=== PATIENT | female | born 1940 | race Caucasian/White ===

== ENCOUNTER 2017-04-15 10:13 | Inpatient (IN) | payer MEDICARE, OTHER ==
[~2017-04-15] VITALS: Ht 167.6 cm; Wt 98.4 kg
[~2017-04-15 10:13] MED LIST: ACET-1574 PO; ALPR0.254 PO; AMLO5TAB2 PO; BENZ1LOZ48 MM; BISA10SU2 RC; BUSP10TA PO; BUSP5TAB PO; CALC500T PO; CARV12.52 PO; CEFT400V IV; CITA20TA9 PO; CLOP75TA PO; CYCL100S4 PO; CYCL10TA2 PO; DIPH25CA58 PO; FENT1PAT13 TD; FERR325T72 PO; FURO40TA4 PO; FURO80TA3 PO; HUMALOG SQ; HYDR-2758 PO; HYDR-2868 PO; INSU100C4 SQ; INSU100I17 SQ; INSU100I27 SQ; INSU100V13 SQ; INSU100V8 SQ; LETR2.5T18 PO; LEVO25TA4 PO; LORA-434 PO; LORAZEPAM PO; MAGN400O7 PO; MELA3TAB43 PO; MIRT15TA PO; MULT1CAP15 PO; MYLANTA PO; NITR0.4T SL; NITR1PAT11 TD; NYST100054 PO; NYST15PO9 TP; OXYC-323 PO; PANT20TA3 PO; PROC25SU21 RC; PROP10DR3 OP; PSYL1PAC7 PO; SENN1TAB21 PO; VENL75CA PO
[2017-04-15 11:08] LABS: BASO # 0.1 x10^3/uL (0.0-0.2); BASO % 1 % (0-3); EOS % 3 % (0-3); HEMATOCRIT 40.8 % (36.0-47.0); HEMOGLOBIN 13.2 g/dL (12.0-15.5); LYMPH # 1.1 x10^3/uL (1.0-4.8); LYMPH % 17 % (24-48); MEAN CORPUSCULAR HEMOGLOBIN 29 pg (25-35); MEAN CORPUSCULAR HGB CONC 32 g/dL (31-37); MEAN CORPUSCULAR VOLUME 91 fL (79-100); MONO % 8 % (0-9); NEUT % 71 % (31-73); PLATELET COUNT 143 x10^3/uL (140-400); RED BLOOD COUNT 4.48 x10^6/uL (3.50-5.40); RED CELL DISTRIBUTION WIDTH 14.3 % (11.5-14.5)
[2017-04-15 11:16] LABS: CALCIUM 8.8 mg/dL (8.5-10.1); CREATININE 1.1 mg/dL (0.6-1.0); POTASSIUM 5.2 mmol/L (3.5-5.1)
[2017-04-15 11:18] LABS: INR 1.1 (0.8-1.1); PROTHROMBIN TIME PATIENT 13.6 SEC (11.7-14.0)
[2017-04-15 11:22] LABS: ALBUMIN 3.2 g/dL (3.4-5.0); ALBUMIN/GLOBULIN RATIO 0.8 (1.0-1.7); MAGNESIUM 1.6 mg/dL (1.8-2.4); TOTAL BILIRUBIN 0.2 mg/dL (0.2-1.0); TOTAL PROTEIN 7.2 g/dL (6.4-8.2)
--- NOTE | 2017-04-15 11:28 | RAD ---
Portable chest, 04/15/2017: History: Weakness and right-sided numbness Comparison is made to a study from 04/21/2016. The heart size and pulmonary vascularity are normal. There is calcific plaquing of the aorta. There is a mild left basilar opacity similar to that seen on the previous study. The appearance suggests a small amount of ongoing or recurrent pleural fluid with underlying atelectasis. The right lung is clear. IMPRESSION: Mild left basilar opacity suggesting a small amount of pleural fluid and underlying atelectasis.
[2017-04-15 11:59] LABS: BILIRUBIN,URINE NEGATIVE (NEG); GLUCOSE,URINE NEGATIVE (NEG); NITRITE,URINE NEGATIVE (NEG); PROTEIN,URINE 100 mg/dL (NEG-TRACE); UROBILINOGEN,URINE 0.2 mg/dL (0.2 mg/dL)
[2017-04-15 12:05] LABS: BACTERIA,URINE MANY /HPF (0-FEW); WBC,URINE TNTC /HPF (0-4)
[2017-04-15 12:06] LABS: RBC,URINE FOBS /HPF (0-2)
--- NOTE | 2017-04-15 12:10 | RAD ---
CT of the head without contrast, 04/15/2017: History: Right-sided weakness, previous stroke Comparison is made to a study from 07/11/2012. There is moderate cerebral atrophy. There are moderate patchy bilateral deep white matter lucencies compatible with chronic ischemic change. Small basal ganglia region lucencies are also compatible with old infarcts. The ventricles are mildly enlarged on a compensatory basis. There is no shift of the midline structures. There is no evidence of acute intracranial hemorrhage or mass effect. IMPRESSION: 1. Cerebral atrophy. 2. Old small bilateral basal ganglia region infarcts. 3. Moderate patchy bilateral deep white matter lucencies compatible with chronic ischemic change. PQRS Compliance Statement: One or more of the following individualized dose reduction techniques were utilized for this examination: 1. Automated exposure control 2. Adjustment of the mA and/or kV according to patient size 3. Use of iterative reconstruction technique
--- NOTE | 2017-04-15 12:31 | PHYS DOC ---
Past Medical History Past Medical History: Anemia, Anxiety, CHF, COPD, Depression, Diabetes-Type II , GERD, High Cholesterol, Hypertension, Renal Disease, UTI, Other Additional Past Medical Histor: Rt ankle fx and osteomyelitis, pressure ulcer buttock, PVD Past Surgical History: Other Additional Past Surgical Histo: Rt ankle fx/repair Alcohol Use: None Drug Use: None Adult General Chief Complaint Chief Complaint: WEAKNESS/GENERALIZED HPI HPI Patient is a 77 year old female with a history of previous stroke with residual left-sided weakness presents today with right-sided weakness that started 2 days ago. Patient did not want to come to the hospital then but weakness had not resolved so she decided to come in today. Patient denies any pain or any other associated symptoms. Review of Systems Review of Systems Constitutional: Denies fever or chills [] Eyes: Denies change in visual acuity, HENT: Denies pain Respiratory: Denies cough or shortness of breath [] Cardiovascular: No chest pain GI: Denies abdominal pain, nausea, vomiting, Musculoskeletal: Denies back pain or joint pain [] Integument: Denies rash or skin lesions [] Neurologic: New right-sided weakness All other systems were reviewed and found to be within normal limits, except as documented in this note. Allergies Allergies Allergies Coded Allergies Type Severity Reaction Last Updated Verified Latex, Natural Rubber Allergy Severe Swelling 01/15/16 Yes morphine Allergy Severe Shortness of Air 01/15/16 Yes I S O L A T I O N *CONTACT* Allergy Unknown 01/18/16 Yes Physical Exam Physical Exam Constitutional: Well developed, well nourished, no acute distress, non-toxic appearance. [] HENT: Normocephalic, atraumatic, bilateral external ears normal, oropharynx dry , no oral exudates, nose normal. [] Eyes: EOMI, conjunctiva normal, no discharge. [] Neck: Normal range of motion, no tenderness, supple, no stridor. Trachea midline , no meningeal signs. Cardiovascular: Irregular irregular pulse, equal pulses, normal perfusion Lungs & Thorax: The case breathe sounds bilateral bases, no tachypnea Abdomen: Bowel sounds normal, soft, no tenderness, no masses, no pulsatile masses. [] Skin: Warm, dry, no erythema, no rash. [] Back: No tenderness, no CVA tenderness. [] Extremities: No tenderness, no cyanosis, no clubbing, ROM intact, no edema. Below knee amputation right Neurologic: Alert and oriented X 3, 4 out of 5 strength right upper extremity 4 out of 5 strength right lower extremity Psychologic: Affect normal, judgement normal, mood normal. [] Current Patient Data Vital Signs Vital Signs Date Time Temp Pulse Resp B/P (MAP) Pulse Ox O2 Delivery O2 Flow Rate FiO2 04/15/17 11:54 76 14 96 04/15/17 10:15 97.6 175/91 (119) Room Air 97.6 Lab Values Laboratory Tests Test 04/15/17 10:55 04/15/17 11:55 White Blood Count 6.0 x10^3/uL (4.0-11.0) Red Blood Count 4.48 x10^6/uL (3.50-5.40) Hemoglobin 13.2 g/dL (12.0-15.5) Hematocrit 40.8 % (36.0-47.0) Mean Corpuscular Volume 91 fL (79-100) Mean Corpuscular Hemoglobin 29 pg (25-35) Mean Corpuscular Hemoglobin Concent 32 g/dL (31-37) Red Cell Distribution Width 14.3 % (11.5-14.5) Platelet Count 143 x10^3/uL (140-400) Neutrophils (%) (Auto) 71 % (31-73) Lymphocytes (%) (Auto) 17 % (24-48) L Monocytes (%) (Auto) 8 % (0-9) Eosinophils (%) (Auto) 3 % (0-3) Basophils (%) (Auto) 1 % (0-3) Neutrophils # (Auto) 4.3 x10^3uL (1.8-7.7) Lymphocytes # (Auto) 1.1 x10^3/uL (1.0-4.8) Monocytes # (Auto) 0.5 x10^3/uL (0.0-1.1) Eosinophils # (Auto) 0.2 x10^3/uL (0.0-0.7) Basophils # (Auto) 0.1 x10^3/uL (0.0-0.2) Prothrombin Time 13.6 SEC (11.7-14.0) Prothrombin Time INR 1.1 (0.8-1.1) Sodium Level 144 mmol/L (136-145) Potassium Level 5.2 mmol/L (3.5-5.1) H Chloride Level 104 mmol/L (98-107) Carbon Dioxide Level 32 mmol/L (21-32) Anion Gap 8 (6-14) Blood Urea Nitrogen 31 mg/dL (7-20) H Creatinine 1.1 mg/dL (0.6-1.0) H Estimated GFR (Cockcroft-Gault) 48.0 BUN/Creatinine Ratio 28 (6-20) H Glucose Level 280 mg/dL (70-99) H Calcium Level 8.8 mg/dL (8.5-10.1) Magnesium Level 1.6 mg/dL (1.8-2.4) L Total Bilirubin 0.2 mg/dL (0.2-1.0) Aspartate Amino Transferase (AST) 13 U/L (15-37) L Alanine Aminotransferase (ALT) 18 U/L (14-59) Alkaline Phosphatase 84 U/L (46-116) Troponin I Quantitative < 0.017 ng/mL (0.000-0.055) NM-Koj-W-Type Natriuretic Peptide 619 pg/mL (0-449) H Total Protein 7.2 g/dL (6.4-8.2) Albumin 3.2 g/dL (3.4-5.0) L Albumin/Globulin Ratio 0.8 (1.0-1.7) L Urine Collection Type U cath Urine Color Yellow Urine Clarity Cloudy Urine pH 6.0 Urine Specific [place] 1.015 Urine Protein 100 mg/dL (NEG-TRACE) Urine Glucose (UA) Negative mg/dL (NEG) Urine Ketones (Stick) Negative mg/dL (NEG) Urine Blood Small (NEG) Urine Nitrite Negative (NEG) Urine Bilirubin Negative (NEG) Urine Urobilinogen Dipstick 0.2 mg/dL (0.2 mg/dL) Urine Leukocyte Esterase Large (NEG) Urine RBC Fobs /HPF (0-2) Urine WBC Tntc /HPF (0-4) Urine Renal Epithelial Cells Few /LPF Urine Bacteria Many /HPF (0-FEW) Urine Mucus Slight /LPF Laboratory Tests 04/15/17 10:55 Laboratory Tests 04/15/17 10:55 EKG EKG 1022 81, SR, no STEMI, afib[] Radiology/Procedures Radiology/Procedures CT IMPRESSION: 1. Cerebral atrophy. 2. Old small bilateral basal ganglia region infarcts. 3. Moderate patchy bilateral deep white matter lucencies compatible with chronic ischemic change. CXR IMPRESSION: Mild left basilar opacity suggesting a small amount of pleural fluid and underlying atelectasis. [] Course & Med Decision Making Course & Med Decision Making Pertinent Labs and Imaging studies reviewed. (See chart for details) [] Dragon Disclaimer Dragon Disclaimer This electronic medical record was generated, in whole or in part, using a voice recognition dictation system. Departure Departure Impression: Primary Impression: Atrial fibrillation Additional Impressions: Stroke Dehydration Electrolyte abnormality Disposition: ADMITTED INPATIENT Admitting Physician: Riana Gtz Referrals: LAKESHA SANCHEZ (PCP) Problem Qualifiers Huma JONES MD Apr 15, 2017 12:31
[2017-04-15] MEDS ORDERED: IV NORMAL SALINE 500ML BAG 500 ML IV ONE (12:45)
[2017-04-15] MEDS ORDERED: MAGNESIUM SULFATE 1GM 100 ML IV ONE ×2 (12:45→13:45)
--- NOTE | 2017-04-15 13:59 | EKG ---
[facility] [address] [place] [address] Test Date: 2017-04-15 Test Time: 10:18:26 Pat Name: RINKU DANIEL Department: Room: 656 1 Gender: F Manager Grant: : [id number] Requested By: MARYJANE ANDREWS Order Number: [id number] Reading MD: Singh Watson Measurements Intervals [place] Rate: 81 P: OR: QRS: 19 QRSD: 82 T: 92 QT: 378 QTc: 440 Interpretive Statements ATRIAL FIBRILLATION Electronically Signed On 04-25-2017 9:09:22 PHOTO FINISH PHOTOGRAPHER by Singh Watson
[2017-04-15] MEDS ORDERED: ACETAMINOPHEN 325 MG TABLET. PO PRN (14:45)
[2017-04-15] MEDS ORDERED: ACETAMINOPHEN 650 MG SUPP.RECT. PR PRN (14:45)
[2017-04-15] MEDS ORDERED: TOTAL VOLUME IV PRN (14:45)
[2017-04-15] MEDS ORDERED: SODIUM CHLORIDE 0.9% IV PRN (14:45)
[2017-04-15] MEDS ORDERED: LABETALOL IV PRN ×2 (14:45)
[2017-04-15 14:59] VITALS: BP 189/70
[2017-04-15 15:00] VITALS: BP 189/70
[2017-04-15] MEDS ORDERED: BENZOCAINE/MENTHOL LOZENGE. MM PRN (15:00)
[2017-04-15] MEDS ORDERED: LORazepam 1 MG TABLET PO PRN (15:00)
[2017-04-15] MEDS ORDERED: NYSTATIN TOPICAL POWDER 15GM BOTTLE. TP PRN (15:00)
[2017-04-15] MEDS ORDERED: PROCHLORPERAZINE 25 MG SUPP.RECT. RC PRN (15:00)
[2017-04-15] MEDS ORDERED: diphenhydrAMINE HCL 25 MG CAPSULE PO PRN (15:00)
[2017-04-15] MEDS ORDERED: CALCIUM CARBONATE 500 MG TABLET PO PRN (15:00)
[2017-04-15] MEDS ORDERED: BISACODYL 10 MG SUPP.RECT. RC PRN (15:00)
[2017-04-15] MEDS ORDERED: ASPIRIN 325 MG TABLET PO SCH (15:00)
[2017-04-15] MEDS ORDERED: fentaNYL 12MCG/HR PATCH 1 PATCH PATCH.TD72 TD SCH (15:00)
[2017-04-15] MEDS ORDERED: oxyCODONE/APAP 5/325 1 TAB TABLET PO PRN (15:00)
--- NOTE | 2017-04-15 15:01 | PDOC2 ---
NEUROLOGY CONSULT Date of Admission Date of Admission DATE: 04/15/17 TIME: 14:53 Reason for Consult Reason for Consult: Stroke symptoms Referring Physician Referring Physician: Dr. Gtz PCP: Dr. Schmid Source Source: Chart review, Patient History of Present Illness History of Present Illness The patient is a 77-year-old right-handed female with history of stroke causing left hemiparesis several years ago who developed right arm weakness about 2 days ago but refused to come to the hospital. She finally came in today. There is no dysarthria, dysphagia, diplopia, or cognitive change. She has a right [id number] amputation and at baseline gets around in a wheelchair. Past Medical History Cardiovascular: CAD, CHF, HTN, Hyperlipidemia, Other (admitted for angina in April 2016) Pulmonary: Pulmonary embolus CENTRAL NERVOUS SYSTEM: CVA, Periperal neuropathy GI: GERD Heme/Onc: Cancer (breast) Musculoskeletal: Other (ankle fracture) ENT: Sincusitis, Other (blindness) Renal/: Chronic renal insuff, Urinary Incontinence Endocrine: Other (hypocalcemia) Dermatology: Cellulitis Past Surgical History Past Surgical History: Other (cardiac catheterization) Family History Family History: Cancer Social History Social History , [facility] resident, no alcohol or tobacco Current Medications Current Medications Current Medications Sodium Chloride 500 ml @ 500 mls/hr 1X ONCE IV Last administered on 13:09; Start 04/15/17 at 12:45; Stop 04/15/17 at 13:44; Status DC Magnesium Sulfate/ Dextrose 100 ml @ 100 mls/hr 1X ONCE IV Last administered on 04/15/17 13:08; Start 04/15/17 at 12:45; Stop 04/15/17 at 13:44; Status DC Magnesium Sulfate/ Dextrose 100 ml @ 100 mls/hr 1X ONCE IV ; Start 04/15/17 at 13:45; Stop 04/15/17 at 14:44; Status DC Enoxaparin Sodium (Lovenox 40mg Syringe) 40 mg Q24H SQ ; Start 04/15/17 at 15: 00 Labetalol HCl 200 mg/Sodium Chloride 190 ml @ 10 mls/hr CONT PRN PRN IV PER PROTOCOL; Start 04/15/17 at 14:45; Stop 04/15/17 at 14:45; Status DC Simvastatin (Zocor) 10 mg QHS PO ; Start 04/15/17 at 21:00 Acetaminophen (Tylenol) 650 mg PRN Q6HRS PRN PO TEMP > 100.4F; Start 04/15/17 at 14:45 Acetaminophen (Acetaminophen Supp) 650 mg PRN Q4HRS PRN W[place] TEMP > 100.4F; Start 04/15/17 at 14:45 Aspirin (Dwayne Aspirin) 325 mg DAILYWBKFT PO ; Start 04/15/17 at 15:00 Labetalol HCl 400 mg/Miscellaneous 160 ml @ 48 mls/hr CONT PRN IV SEE I/O RECORD; Start 04/15/17 at 14:45 Amlodipine Besylate (Norvasc) 10 mg BID PO ; Start 04/15/17 at 21:00; Status UNV Throat Lozenges (Cepacol Sore Throat Lozenge) 1 nicolette PRN Q1HR PRN MM SORE THROAT ; Start 04/15/17 at 15:00; Status UNV Bisacodyl (Dulcolax Supp) 10 mg PRN DAILY PRN RC CONSTIPATION; Start 04/15/17 at 15:00; Status UNV Buspirone HCl (Buspar) 10 mg TID PO ; Start 04/15/17 at 21:00; Status UNV Calcium Carbonate/ Glycine (Oscal) 500 mg PRN Q6HRS PRN PO INDIGESTION; Start 04/15/17 at 15:00; Status UNV Carvedilol (Coreg) 12.5 mg BIDWMEALS PO ; Start 04/15/17 at 17:00; Status UNV Clopidogrel Bisulfate (Plavix) 75 mg DAILY PO ; Start 04/16/17 at 09:00; Status UNV Cyclobenzaprine HCl (Flexeril) 10 mg BID PO ; Start 04/15/17 at 21:00; Status UNV Diphenhydramine HCl (Benadryl) 25 mg PRN Q8HRS PRN PO IT; Start 04/15/17 at 15 :00; Status UNV Fentanyl (Duragesic 12mcg/ Hr Patch) 1 patch Q72H TD ; Start 04/15/17 at 15:00 ; Status UNV Ferrous Sulfate (Feosol) 325 mg TID PO ; Start 04/15/17 at 21:00; Status UNV Furosemide (Lasix) 40 mg BID PO ; Start 04/15/17 at 21:00; Status UNV Insulin Detemir (Levemir) 15 units QHS SQ ; Start 04/15/17 at 21:00; Status UNV Insulin Detemir (Levemir) 25 units DAILYWBKFT SQ ; Start 04/16/17 at 08:00; Status UNV Letrozole (Femara) 2.5 mg DAILY PO ; Start 04/16/17 at 09:00; Status UNV Levothyroxine Sodium (Synthroid) 25 mcg DAILY PO ; Start 04/16/17 at 09:00; Status UNV Lorazepam (Ativan) 1 mg DAILY PO ; Start 04/16/17 at 09:00; Status UNV Lorazepam (Ativan) 1 mg PRN Q6HRS PRN PO ANXIETY; Start 04/15/17 at 15:00; Status UNV Mirtazapine (Remeron) 22.5 mg HS PO ; Start 04/15/17 at 21:00; Status UNV Nitroglycerin (Nitro-Dur 0.6mg) 1 patch DAILY TD ; Start 04/16/17 at 09:00; Status UNV Nystatin (Nystop) 1 judy PRN Q72HRS PRN TP REDNESS; Start 04/15/17 at 15:00; Status UNV Oxycodone/ Acetaminophen (Percocet 5/325) 2 tab PRN Q4HRS PRN PO PAIN; Start 04/15/17 at 15:00; Status UNV Prochlorperazine (Compazine) 10 mg PRN Q4HRS PRN RC TULIO; Start 04/15/17 at 15: 00; Status UNV Senna/Docusate Sodium (Senna Plus) 1 tab DAILY PO ; Start 04/16/17 at 09:00; Status UNV Non-Formulary Medication 16 unit ACHS SQ ; Start 04/15/17 at 15:00; Status UNV Non-Formulary Medication 1 each DAILY PO ; Start 04/16/17 at 09:00; Status UNV Non-Formulary Medication 40 mg DAILY PO ; Start 04/16/17 at 09:00; Status UNV Non-Formulary Medication 2 drop QID OP ; Start 04/15/17 at 17:00; Status UNV Non-Formulary Medication 75 mg DAILY PO ; Start 04/16/17 at 09:00; Status UNV Non-Formulary Medication 30 ml PRN Q3HRS PRN PO HEARTBURN / GAS; Start at 15:00; Status UNV Active Scripts Active FENTANYL 12mcg/hr (Fentanyl) 1 Each Patch.td72 1 Each TD Q72H Percocet 5-325 Mg Tablet (Oxycodone/Acetaminophen) 1 Each Tablet 2 Tab PO PRN Q4HRS PRN Levemir Flextouch (Insulin Detemir) 100 Unit/1 Ml Insuln.pen 15 Units SQ QHS 30 Days Levemir Flextouch (Insulin Detemir) 100 Unit/1 Ml Insuln.pen 25 Units SQ DAILYWBKFT 30 Days Carvedilol 12.5 Mg Tablet 12.5 Mg PO BIDWMEALS 30 Days Reported Femara (Letrozole) 2.5 Mg Tablet 2.5 Mg PO DAILY Systane Ultra 0.4-0.3% Eye Drp (Propylene Glycol/Peg 400) 10 Ml Drops 2 Drop OP QID Senna Plus Tablet (Sennosides/Docusate Sodium) 1 Each Tablet 1 Each PO DAILY Nystatin 15 Gm Powder 1 Judy TP PRN Q72HRS PRN APPLY TO ABDOMEN PRN REDNESS Novolog (Insulin Aspart) 100 Unit/1 Ml Cartridge 16 Unit SQ ACHS Feosol (Ferrous Sulfate) 325 Mg Tablet 325 Mg PO TID Effexor Xr (Venlafaxine Hcl) 75 Mg Cap.er.24h 75 Mg PO DAILY Benadryl (Diphenhydramine Hcl) 25 Mg Capsule 25 Mg PO PRN Q8HRS PRN Ativan (Lorazepam) 1 Mg Tablet 1 Mg PO PRN Q6HRS PRN Furosemide 40 Mg Tablet 40 Mg PO BID Buspirone Hcl 10 Mg Tablet 10 Mg PO TID Remeron (Mirtazapine) 15 Mg Tablet 22.5 Mg PO HS [Mylanta] 30 Ml PO PRN Q3HRS PRN Multivitamins (Multivitamin) 1 Each Capsule 1 Each PO DAILY Compazine (Prochlorperazine Maleate) 25 Mg Supp.rect 10 Mg RC PRN Q4HRS PRN Cepacol Sore Throat Lozenge (Benzocaine/Menthol) 1 Each Lozenge 1 Each MM PRN Q1HR PRN Calcium Carbonate 500 Mg Tablet 500 Mg PO PRN Q6HRS PRN Bisacodyl 10 Mg Supp.rect 10 Mg RC PRN DAILY PRN Ativan (Lorazepam) 1 Mg Tablet 1 Mg PO DAILY EVERY TUE,ESTEFANÍA,SAT FOR ANXIETY ,GIVE 1/2 HR.BEFORE DIALYSIS Amlodipine Besylate 5 Mg Tablet 10 Mg PO BID Pantoprazole Sodium 20 Mg Tablet.dr 40 Mg PO DAILY NITRO-DUR 0.6mg/hr (Nitroglycerin) 1 Each Patch.td24 1 Each TD DAILY Levothyroxine Sodium 25 Mcg Tablet 25 Mcg PO DAILY Cyclobenzaprine Hcl 10 Mg Tablet 10 Mg PO BID Clopidogrel (Clopidogrel Bisulfate) 75 Mg Tablet 75 Mg PO DAILY Allergies Allergies: Coded Allergies: Latex, Natural Rubber (Verified Allergy, Severe, Swelling, 01/15/16) morphine (Verified Allergy, Severe, Shortness of Air, 01/15/16) I S O L A T I O N *CONTACT* (Verified Allergy, Unknown, 01/18/16) ESBL ROS Review of System Patient denies fevers, chills, weight loss, dyspnea, angina, abdominal pain, change in bowels, or dysuria. 14 point review of systems is negative. Physical Exam Physical Examination PHYSICAL EXAMINATION: Vital signs: see above. General appearance is normal and in no acute distress. HEENT: Normocephalic and nontraumatic. Eyes, nose, ears, and throat are unremarkable. Neck is supple. No lymphadenopathy. No bruits are heard over the carotid artery. No crepitus. NEUROLOGICAL EXAMINATION: Mental Status Examination: Alert. Oriented to time, place, and person. Answers questions and follows commends. Pupils are equal round and reactive to light and accommodation. Extraocular movements are intact. Visual field exam shows no defect on the direct confrontation. Mild right central facial weakness. Uvula in the midline and the soft palate elevated symmetrically. No deviation of the tongue to any direction. Gross hearing is normal. Shoulder shrug normal. Muscle tone is normal. Muscle strength is 4/5 on left, 3/5 right arm, 4-/5 right leg. Deep tendon reflexes are 2+ all around. Plantar reflex is flexor on the left. Dvohrh-ge-icnv test performance is accurate. Alternative movements are accurate. Gait not tested. Sensory exam shows no deficits. No cerebellar signs are elicited. Vitals VITALS Vital Signs Date Time Temp Pulse Resp B/P (MAP) Pulse Ox O2 Delivery O2 Flow Rate FiO2 04/15/17 12:51 64 12 96 04/15/17 10:15 97.6 175/91 (119) Room Air 97.6 Labs Labs Laboratory Tests Test 04/15/17 10:55 04/15/17 11:55 White Blood Count 6.0 x10^3/uL (4.0-11.0) Red Blood Count 4.48 x10^6/uL (3.50-5.40) Hemoglobin 13.2 g/dL (12.0-15.5) Hematocrit 40.8 % (36.0-47.0) Mean Corpuscular Volume 91 fL (79-100) Mean Corpuscular Hemoglobin 29 pg (25-35) Mean Corpuscular Hemoglobin Concent 32 g/dL (31-37) Red Cell Distribution Width 14.3 % (11.5-14.5) Platelet Count 143 x10^3/uL (140-400) Neutrophils (%) (Auto) 71 % (31-73) Lymphocytes (%) (Auto) 17 % (24-48) Monocytes (%) (Auto) 8 % (0-9) Eosinophils (%) (Auto) 3 % (0-3) Basophils (%) (Auto) 1 % (0-3) Neutrophils # (Auto) 4.3 x10^3uL (1.8-7.7) Lymphocytes # (Auto) 1.1 x10^3/uL (1.0-4.8) Monocytes # (Auto) 0.5 x10^3/uL (0.0-1.1) Eosinophils # (Auto) 0.2 x10^3/uL (0.0-0.7) Basophils # (Auto) 0.1 x10^3/uL (0.0-0.2) Prothrombin Time 13.6 SEC (11.7-14.0) Prothromb Time International Ratio 1.1 (0.8-1.1) Sodium Level 144 mmol/L (136-145) Potassium Level 5.2 mmol/L (3.5-5.1) Chloride Level 104 mmol/L (98-107) Carbon Dioxide Level 32 mmol/L (21-32) Anion Gap 8 (6-14) Blood Urea Nitrogen 31 mg/dL (7-20) Creatinine 1.1 mg/dL (0.6-1.0) Estimated GFR (Cockcroft-Gault) 48.0 BUN/Creatinine Ratio 28 (6-20) Glucose Level 280 mg/dL (70-99) Calcium Level 8.8 mg/dL (8.5-10.1) Magnesium Level 1.6 mg/dL (1.8-2.4) Total Bilirubin 0.2 mg/dL (0.2-1.0) Aspartate Amino Transf (AST/SGOT) 13 U/L (15-37) Alanine Aminotransferase (ALT/SGPT) 18 U/L (14-59) Alkaline Phosphatase 84 U/L (46-116) Troponin I Quantitative < 0.017 ng/mL (0.000-0.055) RF-Sxr-M-Type Natriuretic Peptide 619 pg/mL (0-449) Total Protein 7.2 g/dL (6.4-8.2) Albumin 3.2 g/dL (3.4-5.0) Albumin/Globulin Ratio 0.8 (1.0-1.7) Urine Collection Type U cath Urine Color Yellow Urine Clarity Cloudy Urine pH 6.0 Urine Specific [place] 1.015 Urine Protein 100 mg/dL (NEG-TRACE) Urine Glucose (UA) Negative mg/dL (NEG) Urine Ketones (Stick) Negative mg/dL (NEG) Urine Blood Small (NEG) Urine Nitrite Negative (NEG) Urine Bilirubin Negative (NEG) Urine Urobilinogen Dipstick 0.2 mg/dL (0.2 mg/dL) Urine Leukocyte Esterase Large (NEG) Urine RBC Fobs /HPF (0-2) Urine WBC Tntc /HPF (0-4) Urine Renal Epithelial Cells Few /LPF Urine Bacteria Many /HPF (0-FEW) Urine Mucus Slight /LPF Laboratory Tests Test 04/15/17 10:55 04/15/17 11:55 White Blood Count 6.0 x10^3/uL (4.0-11.0) Red Blood Count 4.48 x10^6/uL (3.50-5.40) Hemoglobin 13.2 g/dL (12.0-15.5) Hematocrit 40.8 % (36.0-47.0) Mean Corpuscular Volume 91 fL (79-100) Mean Corpuscular Hemoglobin 29 pg (25-35) Mean Corpuscular Hemoglobin Concent 32 g/dL (31-37) Red Cell Distribution Width 14.3 % (11.5-14.5) Platelet Count 143 x10^3/uL (140-400) Neutrophils (%) (Auto) 71 % (31-73) Lymphocytes (%) (Auto) 17 % (24-48) Monocytes (%) (Auto) 8 % (0-9) Eosinophils (%) (Auto) 3 % (0-3) Basophils (%) (Auto) 1 % (0-3) Neutrophils # (Auto) 4.3 x10^3uL (1.8-7.7) Lymphocytes # (Auto) 1.1 x10^3/uL (1.0-4.8) Monocytes # (Auto) 0.5 x10^3/uL (0.0-1.1) Eosinophils # (Auto) 0.2 x10^3/uL (0.0-0.7) Basophils # (Auto) 0.1 x10^3/uL (0.0-0.2) Prothrombin Time 13.6 SEC (11.7-14.0) Prothromb Time International Ratio 1.1 (0.8-1.1) Sodium Level 144 mmol/L (136-145) Potassium Level 5.2 mmol/L (3.5-5.1) Chloride Level 104 mmol/L (98-107) Carbon Dioxide Level 32 mmol/L (21-32) Anion Gap 8 (6-14) Blood Urea Nitrogen 31 mg/dL (7-20) Creatinine 1.1 mg/dL (0.6-1.0) Estimated GFR (Cockcroft-Gault) 48.0 BUN/Creatinine Ratio 28 (6-20) Glucose Level 280 mg/dL (70-99) Calcium Level 8.8 mg/dL (8.5-10.1) Magnesium Level 1.6 mg/dL (1.8-2.4) Total Bilirubin 0.2 mg/dL (0.2-1.0) Aspartate Amino Transf (AST/SGOT) 13 U/L (15-37) Alanine Aminotransferase (ALT/SGPT) 18 U/L (14-59) Alkaline Phosphatase 84 U/L (46-116) Troponin I Quantitative < 0.017 ng/mL (0.000-0.055) AR-Pso-A-Type Natriuretic Peptide 619 pg/mL (0-449) Total Protein 7.2 g/dL (6.4-8.2) Albumin 3.2 g/dL (3.4-5.0) Albumin/Globulin Ratio 0.8 (1.0-1.7) Urine Collection Type U cath Urine Color Yellow Urine Clarity Cloudy Urine pH 6.0 Urine Specific [place] 1.015 Urine Protein 100 mg/dL (NEG-TRACE) Urine Glucose (UA) Negative mg/dL (NEG) Urine Ketones (Stick) Negative mg/dL (NEG) Urine Blood Small (NEG) Urine Nitrite Negative (NEG) Urine Bilirubin Negative (NEG) Urine Urobilinogen Dipstick 0.2 mg/dL (0.2 mg/dL) Urine Leukocyte Esterase Large (NEG) Urine RBC Fobs /HPF (0-2) Urine WBC Tntc /HPF (0-4) Urine Renal Epithelial Cells Few /LPF Urine Bacteria Many /HPF (0-FEW) Urine Mucus Slight /LPF Images Images Head CT: There is moderate cerebral atrophy. There are moderate patchy bilateral deep white matter lucencies compatible with chronic ischemic change. Small basal ganglia region lucencies are also compatible with old infarcts. The ventricles are mildly enlarged on a compensatory basis. There is no shift of the midline structures. There is no evidence of acute intracranial hemorrhage or mass effect. IMPRESSION: 1. Cerebral atrophy. 2. Old small bilateral basal ganglia region infarcts. 3. Moderate patchy bilateral deep white matter lucencies compatible with chronic ischemic change. Assessment/Plan Assessment/Plan Impression: New left hemispheric stroke, most likely lacunar Prior stroke with left hemiparesis Recommendations: Failure on Plavix, we'll add low-dose aspirin temporarily, side effects discussed, including fact that this may increase risk of bleeding Brain MRI Echocardiogram Carotid Dopplers Rehabilitation modalities Also see stroke orders. Thank you for letting me help with the patient's care. BENJAMÍN HEBERT MD Apr 15, 2017 15:01
--- NOTE | 2017-04-15 15:15 | PDOC2 ---
MARIBELL MORATAYA ADJUSTER LEADER 04/15/17 1515: CARDIAC CONSULT DATE OF CONSULT Date of Consult DATE: 04/15/17 TIME: 15:10 REASON FOR CONSULT Reason for Consult: AFIB REFERRING PHYSICIAN Referring Physician: Dr. Gtz SOURCE Source: Chart review, Patient HISTORY OF PRESENT ILLNESS HISTORY OF PRESENT ILLNESS This is a 77 yo female, with a history of AFIB and CVA with right-sided residual , who presented from [facility] with complaints of left-sided weakness x 2 days and right sided facial weakness. Apparently did not want to come into the ED but symptoms did not resolved so she came into the ED for further evaluation and treatment. Denies any chest pain, palpitations, dizziness, syncope, SOA, or nausea/vomiting. Also has a history of CAD s/p remote stent placement. 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 Was previously on warfarin for stroke prophylaxis, but cannot provide why she is not longer taking. PAST MEDICAL HISTORY Past Medical History Cardiovascular: HTN, Hyperlipidemia, CAD s/p PCI/stet placement Pulmonary: No pertinent hx CENTRAL NERVOUS SYSTEM: CVA GI: No pertinent hx Heme/Onc: Anemia NOS, Cancer (breast) Hepatobiliary: No pertinent hx Psych: No pertinent hx Musculoskeletal: Osteoarthritis Rheumatologic: No pertinent hx Infectious disease: No pertinent hx Renal/: Chronic renal insuff Endocrine: Diabetes PAST SURGICAL HISTORY Past Surgical History: Hysterectomy, Other (right BKA) FAMILY HISTORY Family History: Cancer SOCIAL HISTORY Social History Smoke: No ALCOHOL: none Drugs: None Lives: Assisted CURRENT MEDICATIONS CURRENT MEDICATIONS Current Medications Medications (Trade) Dose Ordered Sig/Darlene Route PRN Reason Start Time Stop Time Status Last Admin Dose Admin Sodium Chloride 500 ml @ 500 mls/hr 1X ONCE IV 04/15/17 12:45 04/15/17 13:44 DC 04/15/17 13:09 Magnesium Sulfate/ Dextrose 100 ml @ 100 mls/hr 1X ONCE IV 04/15/17 12:45 04/15/17 13:44 DC 04/15/17 13:08 ALLERGIES ALLERGIES: Coded Allergies: Latex, Natural Rubber (Verified Allergy, Severe, Swelling, 01/15/16) morphine (Verified Allergy, Severe, Shortness of Air, 01/15/16) I S O L A T I O N *CONTACT* (Verified Allergy, Unknown, 01/18/16) ESBL ROS Review of System 14 point ROS conducted with pertinent positives noted above in HPI. PHYSICAL EXAM General: Alert, Oriented X3, Cooperative, No acute distress HEENT: Atraumatic, Mucous membr. moist/pink Lungs: Clear to auscultation, Other (diminished bases) Heart: Normal S1, Normal S2, Other (2/6 systolic murmur,. IRR; tele AFIB with controlled ventricular rate ) Abdomen: Soft, Other (obese) Extremities: No edema Skin: No breakdown, No significant lesion Neuro: Sensation intact, Other (mild dysarthria ) Psych/Mental Status: Mood NL MUSCULOSKELETAL: Osteoarthritic changes both hands VITALS VITALS Vital Signs Date Time Temp Pulse Resp B/P (MAP) Pulse Ox O2 Delivery O2 Flow Rate FiO2 04/15/17 15:00 97.5 68 19 189/70 (109) 95 Room Air 97.5 LABS Lab: Laboratory Tests Test 04/15/17 10:55 04/15/17 11:55 White Blood Count 6.0 x10^3/uL (4.0-11.0) Red Blood Count 4.48 x10^6/uL (3.50-5.40) Hemoglobin 13.2 g/dL (12.0-15.5) Hematocrit 40.8 % (36.0-47.0) Mean Corpuscular Volume 91 fL (79-100) Mean Corpuscular Hemoglobin 29 pg (25-35) Mean Corpuscular Hemoglobin Concent 32 g/dL (31-37) Red Cell Distribution Width 14.3 % (11.5-14.5) Platelet Count 143 x10^3/uL (140-400) Neutrophils (%) (Auto) 71 % (31-73) Lymphocytes (%) (Auto) 17 % (24-48) Monocytes (%) (Auto) 8 % (0-9) Eosinophils (%) (Auto) 3 % (0-3) Basophils (%) (Auto) 1 % (0-3) Neutrophils # (Auto) 4.3 x10^3uL (1.8-7.7) Lymphocytes # (Auto) 1.1 x10^3/uL (1.0-4.8) Monocytes # (Auto) 0.5 x10^3/uL (0.0-1.1) Eosinophils # (Auto) 0.2 x10^3/uL (0.0-0.7) Basophils # (Auto) 0.1 x10^3/uL (0.0-0.2) Prothrombin Time 13.6 SEC (11.7-14.0) Prothromb Time International Ratio 1.1 (0.8-1.1) Sodium Level 144 mmol/L (136-145) Potassium Level 5.2 mmol/L (3.5-5.1) Chloride Level 104 mmol/L (98-107) Carbon Dioxide Level 32 mmol/L (21-32) Anion Gap 8 (6-14) Blood Urea Nitrogen 31 mg/dL (7-20) Creatinine 1.1 mg/dL (0.6-1.0) Estimated GFR (Cockcroft-Gault) 48.0 BUN/Creatinine Ratio 28 (6-20) Glucose Level 280 mg/dL (70-99) Calcium Level 8.8 mg/dL (8.5-10.1) Magnesium Level 1.6 mg/dL (1.8-2.4) Total Bilirubin 0.2 mg/dL (0.2-1.0) Aspartate Amino Transf (AST/SGOT) 13 U/L (15-37) Alanine Aminotransferase (ALT/SGPT) 18 U/L (14-59) Alkaline Phosphatase 84 U/L (46-116) Troponin I Quantitative < 0.017 ng/mL (0.000-0.055) BT-Iuc-G-Type Natriuretic Peptide 619 pg/mL (0-449) Total Protein 7.2 g/dL (6.4-8.2) Albumin 3.2 g/dL (3.4-5.0) Albumin/Globulin Ratio 0.8 (1.0-1.7) Urine Collection Type U cath Urine Color Yellow Urine Clarity Cloudy Urine pH 6.0 Urine Specific Zimmerman 1.015 Urine Protein 100 mg/dL (NEG-TRACE) Urine Glucose (UA) Negative mg/dL (NEG) Urine Ketones (Stick) Negative mg/dL (NEG) Urine Blood Small (NEG) Urine Nitrite Negative (NEG) Urine Bilirubin Negative (NEG) Urine Urobilinogen Dipstick 0.2 mg/dL (0.2 mg/dL) Urine Leukocyte Esterase Large (NEG) Urine RBC Fobs /HPF (0-2) Urine WBC Tntc /HPF (0-4) Urine Renal Epithelial Cells Few /LPF Urine Bacteria Many /HPF (0-FEW) Urine Mucus Slight /LPF ECHOCARDIOGRAM ECHOCARDIOGRAM <Conclusion> The left ventricular systolic function is normal and the ejection fraction is within normal range. The Ejection Fraction is 55-60%. There is normal LV segmental wall motion. Transmitral Doppler flow pattern is Grade II-pseudonormal filling dynamics. Calculated aortic valve area is 1.1 cm2 with maximum pressure gradient of 39 mmHg and mean pressure gradient of 25 mmHg. Doppler and color-flow analysis revealed moderate aortic stenosis. Technically difficulty study. DATE: 01/15/161717 ASSESSMENT/PLAN ASSESSMENT/PLAN 1. Chronic AFIB; rate controlled. 2. H/o CVA with new onset weakness with concern for new left hemispheric stroke 3. CAD s/p remote PCI/stent placement. 4. Hypertension 5. Hyperlipidemia 6. Diabetes 7. Stage IV breast CA 8. H/o noncompliance per chart review Recommendations Neuro workup ongoing. Failed on Plavix. ASA added. Definitely warrants anticoagulation therapy given AFIB and stroke risk, but also at increased risk for hemophagic transformation. Will need to discuss with neurology. Echo ordered Check lipids NPO pending swallow eval. Add hydralazine IVP for SBP > 180 Problems: ALYSHA GILBERT MD 04/16/17 1827: CARDIAC CONSULT ALLERGIES ALLERGIES: Coded Allergies: Latex, Natural Rubber (Verified Allergy, Severe, Swelling, 01/15/16) morphine (Verified Allergy, Severe, Shortness of Air, 01/15/16) I S O L A T I O N *CONTACT* (Verified Allergy, Unknown, 01/18/16) ESBL ASSESSMENT/PLAN ASSESSMENT/PLAN Patient seen and examined. Agree with above nurse practitioner note. Late entry for 04/15/2017. 77-year-old woman with small vessel disease and cerebral infarct. Given her atrial for ablation she would warrant anticoagulation. We will initiate Eliquis 5 mg twice a day as she has been cleared by neurology to consider anticoagulation. We will have a discussion with the patient and if she agrees we will discontinue her Plavix and initiated her on Eliquis therapy. Supportive care. Thank you for this consultation. Problems: ALYCE MORATAYAILY HAKAN Apr 15, 2017 15:15 ALYSHA GILBERT MD Apr 16, 2017 18:27
--- NOTE | 2017-04-15 15:24 | HP ---
ADMIT DATE: 04/15/2017 CHIEF COMPLAINT: Right-sided weakness. HISTORY OF PRESENT ILLNESS: The patient is a pleasant elderly female who resides at [facility]. She has had previous strokes and multiple comorbidities. Basically, she has got right-sided weakness today. It appears she probably has another stroke, but it is not showing up on CAT scan. I have discussed the case with the ER physician. We are going to admit the patient and consult Neurology. PAST MEDICAL HISTORY: Polypharmacy, she is on 30 medicines; previous strokes ; right BKA; diabetic foot disease; diabetes; hypertension; hyperlipidemia; peripheral vascular disease; anemia; anxiety; CHF; COPD; depression; GERD; UTI; chronic renal insufficiency; decubitus ulcers on her buttocks; right ankle fracture; osteomyelitis. ALLERGIES: LATEX, MORPHINE. FAMILY HISTORY: Diabetes. SOCIAL HISTORY: She does not drink, smoke or take drugs. She lives in a skilled nursing. MEDICATIONS: Reviewed. REVIEW OF SYSTEMS: Unreliable. The patient has poor memory. PHYSICAL EXAMINATION: VITAL SIGNS: Temperature afebrile, pulse 92, respirations 18, blood pressure 132/74. GENERAL: She is alert, but confused, pleasant. Her daughter and granddaughter are present. HEART: Normal S1, S2. LUNGS: Clear to auscultation. ABDOMEN: Soft, obese. EXTREMITIES: She has a right [id number]-bygy amputation. ENDOCRINE: No thyromegaly. LYMPHATICS: No cervical nodes. HEMATOPOIETIC: No bruising. NEUROLOGICAL: She is weak on the right. Her memory is poor. LABORATORY DATA: White count 6, hemoglobin 13, platelets 143. Electrolytes: Sodium 144, potassium 5.2, chloride 104, bicarbonate 32, BUN 31, creatinine 1.1, glucose 280. Troponin is 0. BNP 619. INR is 1.1. Urinalysis, large amount of leukocyte esterase, too numerous to count white cells. ASSESSMENT AND PLAN: Stroke symptoms with an incidental finding of urinary tract infection in an elderly female with the above-noted comorbidities and also incidental findings of hyperkalemia and acute azotemia. The patient has been admitted. We will consult Physical Therapy, Occupational Therapy, Speech Therapy, Neurology, consult Nephrology. Continue her home meds, nursing home unit evaluation. Consider MRI. PROGNOSIS: Guarded. MARYJANE ANDREWS DO DR: Real JOB#: [id number] / [id number]
[2017-04-15] MEDS ORDERED: POTA20TA82 PO (15:29)
[2017-04-15] MEDS ORDERED: MAGN400T3 PO (15:29)
[2017-04-15] MEDS: CARVEDILOL 12.5 MG TABLET. PO SCH (15:48)
[2017-04-15] MEDS: FUROSEMIDE 40 MG TABLET. PO SCH (15:48)
[2017-04-15] MEDS ORDERED: MAG HYDROX/ALUMINUM HYD/SIMETH 30 ML ORAL.SUSP PO PRN (16:00)
[2017-04-15] MEDS: FERROUS SULFATE 325 MG TABLET. PO SCH (16:01)
[2017-04-15] MEDS: INSULIN ASPART 300 UNITS/3 ML INSULN.PEN SQ SCH ×2 (16:30→21:00)
[2017-04-15] MEDS: POLYVINYL ALCOHOL 1.4% OPHTH SOLUTION 15ML BOTTLE. OU SCH ×3 (16:38→21:34)
[2017-04-15] MEDS: ENOXAPARIN 40 MG/0.4 ML SYRINGE. SQ SCH (16:40)
[2017-04-15] MEDS ORDERED: hydrALAZINE 20 MG/ML VIAL. IVP PRN (16:45)
[2017-04-15] MEDS ORDERED: IV NORMAL SALINE 1000ML BAG 1,000 ML IV SCH (17:15)
--- NOTE | 2017-04-15 19:10 | RAD ---
MRI brain without contrast HISTORY: Cerebral vascular accident, weakness. TECHNIQUE: Multiplanar MRI sequences of the brain were acquired. No contrast was given. FINDINGS: Diffusion-weighted hyperintense acute infarcts with restricted diffusion of intracellular water on the ADC map involving the ventral and central [place] concerning for basilar account services associate infarcts. Subtle subcentimeter diffusion-weighted hyperintense lesion of the deep right frontal paratracheal white matter the tibial image 20 may be an artifact although a subtle acute infarct at this location cannot be excluded. Cavitation and T2-weighted signal abnormality of genu and body of the corpus callosum with surrounding periventricular bilateral cerebral white matter T2 weighted hyperintensity. Mild ventriculomegaly. No obstructive hydrocephalus. Mild generalized brain atrophy. There are linear and cavitary periventricular cerebral white matter T2-weighted hyperintense lesions present. Intracranial vascular flow voids intact. No acute intracranial hemorrhage. No mass. 2 cm oblong left cerebellopontine angle arachnoid cyst posterior of the internal auditory canal lateral cerebellum. Orbits, mastoids and paranasal sinuses are unremarkable. IMPRESSION: 1. 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 2. Cerebral periventricular and corpus callosum cavitary and T2-weighted hyperintense lesions are present. This could be indicative of chronic microvascular disease with lacunar infarcts, versus chronic demyelinating disease such as multiple sclerosis. 3. Subcentimeter diffusion-weighted hyperintense lesion of the deep right frontal lobe white matter, a small acute lacunar infarct is not excluded. 4. Small arachnoid cyst at the left cerebellopontine angle. Critical results called to the patient's nurse on the sixth floor at 7:00 PM April 15, 2017, who is calling Dr. Stinson with results immediately. Electronically signed by: Amador Huerta MD (04/15/2017 7:07 PM) [facility]
[2017-04-15 19:25] VITALS: BP 158/49
[2017-04-15] MEDS: busPIRone 10 MG TABLET. PO SCH (21:00)
[2017-04-15] MEDS: MIRTAZAPINE 15 MG TABLET PO SCH (21:00)
[2017-04-15] MEDS ORDERED: SIMVASTATIN 10 MG TABLET PO SCH (21:00)
[2017-04-15] MEDS: amLODIPine BESYLATE 10 MG TABLET PO SCH (21:00)
[2017-04-15] MEDS: CYCLOBENZAPRINE 10 MG TABLET. PO SCH (21:00)
[2017-04-15] MEDS: INSULIN DETEMIR 300 UNITS/3 ML INSULN.PEN. SQ SCH (21:00)
[2017-04-15 23:25] VITALS: BP 175/70
[2017-04-16 03:25] VITALS: BP 179/63
[2017-04-16 05:21] LABS: CHOLESTEROL 233 mg/dL (0-200); HDLC 31 mg/dL (40-60); NON-HDL CHOLESTEROL 202 mg/dL (0-129)
[2017-04-16 05:38] LABS: TRIGLYCERIDES 523 mg/dL (0-150)
[2017-04-16 05:41] LABS: CHOLESTEROL/HDL RATIO 7.5
[2017-04-16] MEDS: POTASSIUM CHLORIDE 20 MEQ TABLET.ER. PO SCH (07:06)
[2017-04-16] MEDS: PANTOPRAZOLE 40 MG TABLET.DR. PO SCH (07:06)
[2017-04-16] MEDS: ASPIRIN ENTERIC COATED 81 MG TABLET.DR. PO SCH (07:06)
[2017-04-16] MEDS: CARVEDILOL 12.5 MG TABLET. PO SCH ×2 (07:06→16:09)
[2017-04-16] MEDS: FERROUS SULFATE 325 MG TABLET. PO SCH ×3 (07:06→16:08)
[2017-04-16] MEDS: LETROZOLE 2.5 MG TABLET. PO SCH (07:07)
[2017-04-16] MEDS: FUROSEMIDE 40 MG TABLET. PO SCH ×2 (07:07→14:04)
[2017-04-16] MEDS: LORazepam 1 MG TABLET PO SCH (07:07)
[2017-04-16] MEDS: VENLAFAXINE XR 37.5 MG CAP.ER.24H. PO SCH (07:07)
[2017-04-16] MEDS: CYCLOBENZAPRINE 10 MG TABLET. PO SCH ×2 (07:07→21:56)
[2017-04-16] MEDS: busPIRone 10 MG TABLET. PO SCH ×3 (07:07→21:55)
[2017-04-16] MEDS: MAGNESIUM OXIDE 400 MG TABLET PO SCH (07:08)
[2017-04-16] MEDS: CLOPIDOGREL BISULFATE 75 MG TABLET PO SCH (07:08)
[2017-04-16] MEDS: LEVOTHYROXINE 25 MCG TABLET. PO SCH (07:08)
[2017-04-16] MEDS: MULTIVITAMIN with MINERAL TABLET. PO SCH (07:08)
[2017-04-16] MEDS: SENNOSIDES/DOCUSATE 8.6/50MG TABLET. PO SCH (07:08)
[2017-04-16] MEDS: amLODIPine BESYLATE 10 MG TABLET PO SCH ×2 (07:08→21:55)
[2017-04-16 07:10] VITALS: BP 153/71
--- NOTE | 2017-04-16 07:27 | RAD ---
Carotid ultrasound, 04/15/2017: History: CVA Duplex evaluation of the carotid arteries in neck was performed including grayscale, color-flow and spectral Doppler analysis. There is mild to moderate atherosclerotic plaquing at both carotid bifurcations, left greater than right. The plaques are partially calcified. The peak systolic velocity in the right internal carotid artery is 73 cm per sec with an end-diastolic velocity of 23 cm/s. The peak systolic velocity in the left internal carotid artery is 60 cm per sec with an end-diastolic velocity of 16 cm/s. These Doppler findings suggest narrowing in the 0-50% diameter range. Antegrade flow is present in both vertebral arteries in the neck. IMPRESSION: Mild to moderate atherosclerotic plaquing at both carotid bifurcations with underlying luminal narrowing in the 0-50% diameter range bilaterally. Note: Stenosis calculations for CTA, MRA and conventional angiography are based upon determination of the distal ICA diameter in accordance with the NASCET methodology. Stenosis calculations for Doppler studies are derived from validated velocity criteria which are known to correlate with NASCET methodology of determining stenosis.
[2017-04-16] MEDS: POLYVINYL ALCOHOL 1.4% OPHTH SOLUTION 15ML BOTTLE. OU SCH ×4 (08:00→21:54)
[2017-04-16] MEDS: NITROGLYCERIN 0.6MG/HR PATCH. TD SCH (08:02)
[2017-04-16] MEDS: INSULIN ASPART 300 UNITS/3 ML INSULN.PEN SQ SCH ×4 (08:08→21:53)
[2017-04-16] MEDS: INSULIN DETEMIR 300 UNITS/3 ML INSULN.PEN. SQ SCH ×2 (08:08→21:53)
[2017-04-16 08:26] LABS: ALBUMIN 3.1 g/dL (3.4-5.0); ALBUMIN/GLOBULIN RATIO 0.7 (1.0-1.7); CALCIUM 8.8 mg/dL (8.5-10.1); CREATININE 0.9 mg/dL (0.6-1.0); GFR 60.6; TOTAL BILIRUBIN 0.3 mg/dL (0.2-1.0); TOTAL PROTEIN 7.3 g/dL (6.4-8.2)
[2017-04-16 08:27] LABS: BASO % 0 % (0-3); EOS % 0 % (0-3); HEMATOCRIT 40.4 % (36.0-47.0); LYMPH % 33 % (24-48); MEAN CORPUSCULAR HEMOGLOBIN 29 pg (25-35); MEAN CORPUSCULAR HGB CONC 32 g/dL (31-37); MEAN CORPUSCULAR VOLUME 92 fL (79-100); MONO % 0 % (0-9); NEUT % 67 % (31-73); PLATELET COUNT 137 x10^3/uL (140-400); RED BLOOD COUNT 4.42 x10^6/uL (3.50-5.40)
[2017-04-16] MEDS ORDERED: CONTRAST GIVEN MC PRN (09:15)
[2017-04-16] MEDS ORDERED: IOHEXOL 300 MG/ML 100ML VIAL. IV ONE (09:15)
--- NOTE | 2017-04-16 10:03 | PDOC ---
PROGRESS NOTES Assessment Problems Medical Problems: (1) Atrial fibrillation Status: Acute (2) Dehydration Status: Acute (3) Electrolyte abnormality Status: Acute (4) Stroke Status: Acute Acute central and ventral pontine infarcts Possible small right frontal acute lacunar infarct. Chronic microvascular disease, doubt multiple sclerosis. Prior right hemispheric lacunar stroke with left hemiparesis Aarachnoid cyst at the left cerebellopontine angle Right AKA Severe hyperlipidemia Note atrial fibrillation, distribution of infarcts is more consistent with small vessel disease. Plan CT angiogram Rehabilitation modalities Okay from me to resume anticoagulation, novel oral anticoagulant fine with me, defer to cardiology. Note that she declined anticoagulation when she was here in April. Otherwise continue Aspirin and Plavix combo I increased the statin dose Should be okay to return to custodial in the next 24 hours. Subjective No complaints Objective Vital Signs Date Time Temp Pulse Resp B/P (MAP) Pulse Ox O2 Delivery O2 Flow Rate FiO2 04/16/17 07:41 Room Air 04/16/17 07:10 97.7 87 18 153/71 (98) 96 97.7 Intake and Output 04/16/17 06:59 Intake Total 0 ml Balance 0 ml Intake Oral 0 ml # Voids 4 PHYSICAL EXAM Alert. Oriented to time, place and person. PERRL. EOMI. CN: no focal findings. Muscle tone: normal. Muscle strength: 4/5 on left, 3/5 right arm, 4-/5 right leg DTR: 2+ Plantar reflex: flexor on left Gait: not examined in bed. Sensory exam: no abnormal findings. No cerebellar signs elicited. Review of Relevant I have reviewed the following items zaheer (where applicable) has been applied. Labs Laboratory Tests Test 04/15/17 10:55 04/15/17 11:55 04/15/17 14:04 04/15/17 16:27 White Blood Count 6.0 x10^3/uL (4.0-11.0) Red Blood Count 4.48 x10^6/uL (3.50-5.40) Hemoglobin 13.2 g/dL (12.0-15.5) Hematocrit 40.8 % (36.0-47.0) Mean Corpuscular Volume 91 fL (79-100) Mean Corpuscular Hemoglobin 29 pg (25-35) Mean Corpuscular Hemoglobin Concent 32 g/dL (31-37) Red Cell Distribution Width 14.3 % (11.5-14.5) Platelet Count 143 x10^3/uL (140-400) Neutrophils (%) (Auto) 71 % (31-73) Lymphocytes (%) (Auto) 17 % (24-48) Monocytes (%) (Auto) 8 % (0-9) Eosinophils (%) (Auto) 3 % (0-3) Basophils (%) (Auto) 1 % (0-3) Neutrophils # (Auto) 4.3 x10^3uL (1.8-7.7) Lymphocytes # (Auto) 1.1 x10^3/uL (1.0-4.8) Monocytes # (Auto) 0.5 x10^3/uL (0.0-1.1) Eosinophils # (Auto) 0.2 x10^3/uL (0.0-0.7) Basophils # (Auto) 0.1 x10^3/uL (0.0-0.2) Prothrombin Time 13.6 SEC (11.7-14.0) Prothromb Time International Ratio 1.1 (0.8-1.1) Sodium Level 144 mmol/L (136-145) Potassium Level 5.2 mmol/L (3.5-5.1) Chloride Level 104 mmol/L (98-107) Carbon Dioxide Level 32 mmol/L (21-32) Anion Gap 8 (6-14) Blood Urea Nitrogen 31 mg/dL (7-20) Creatinine 1.1 mg/dL (0.6-1.0) Estimated GFR (Cockcroft-Gault) 48.0 BUN/Creatinine Ratio 28 (6-20) Glucose Level 280 mg/dL (70-99) Calcium Level 8.8 mg/dL (8.5-10.1) Magnesium Level 1.6 mg/dL (1.8-2.4) Total Bilirubin 0.2 mg/dL (0.2-1.0) Aspartate Amino Transf (AST/SGOT) 13 U/L (15-37) Alanine Aminotransferase (ALT/SGPT) 18 U/L (14-59) Alkaline Phosphatase 84 U/L (46-116) Troponin I Quantitative < 0.017 ng/mL (0.000-0.055) MI-Zdb-[id number]-Type Natriuretic Peptide 619 pg/mL (0-449) Total Protein 7.2 g/dL (6.4-8.2) Albumin 3.2 g/dL (3.4-5.0) Albumin/Globulin Ratio 0.8 (1.0-1.7) Urine Collection Type U cath Urine Color Yellow Urine Clarity Cloudy Urine pH 6.0 Urine Specific [place] 1.015 Urine Protein 100 mg/dL (NEG-TRACE) Urine Glucose (UA) Negative mg/dL (NEG) Urine Ketones (Stick) Negative mg/dL (NEG) Urine Blood Small (NEG) Urine Nitrite Negative (NEG) Urine Bilirubin Negative (NEG) Urine Urobilinogen Dipstick 0.2 mg/dL (0.2 mg/dL) Urine Leukocyte Esterase Large (NEG) Urine RBC Fobs /HPF (0-2) Urine WBC Tntc /HPF (0-4) Urine Renal Epithelial Cells Few /LPF Urine Bacteria Many /HPF (0-FEW) Urine Mucus Slight /LPF Nasal Screen MRSA (PCR) Negative (Negative) Glucose (Fingerstick) 184 mg/dL (70-99) Test 04/15/17 21:27 04/16/17 03:15 04/16/17 07:06 Glucose (Fingerstick) 179 mg/dL (70-99) 285 mg/dL (70-99) White Blood Count 6.0 x10^3/uL (4.0-11.0) Red Blood Count 4.42 x10^6/uL (3.50-5.40) Hemoglobin 13.0 g/dL (12.0-15.5) Hematocrit 40.4 % (36.0-47.0) Mean Corpuscular Volume 92 fL (79-100) Mean Corpuscular Hemoglobin 29 pg (25-35) Mean Corpuscular Hemoglobin Concent 32 g/dL (31-37) Red Cell Distribution Width 14.0 % (11.5-14.5) Platelet Count 137 x10^3/uL (140-400) Neutrophils (%) (Auto) 67 % (31-73) Lymphocytes (%) (Auto) 33 % (24-48) Monocytes (%) (Auto) 0 % (0-9) Eosinophils (%) (Auto) 0 % (0-3) Basophils (%) (Auto) 0 % (0-3) Neutrophils # (Auto) 4.0 x10^3uL (1.8-7.7) Lymphocytes # (Auto) 2.0 x10^3/uL (1.0-4.8) Monocytes # (Auto) 0.0 x10^3/uL (0.0-1.1) Eosinophils # (Auto) 0.0 x10^3/uL (0.0-0.7) Basophils # (Auto) 0.0 x10^3/uL (0.0-0.2) Sodium Level 142 mmol/L (136-145) Potassium Level 4.0 mmol/L (3.5-5.1) Chloride Level 104 mmol/L (98-107) Carbon Dioxide Level 26 mmol/L (21-32) Anion Gap 12 (6-14) Blood Urea Nitrogen 22 mg/dL (7-20) Creatinine 0.9 mg/dL (0.6-1.0) Estimated GFR (Cockcroft-Gault) 60.6 BUN/Creatinine Ratio 24 (6-20) Glucose Level 226 mg/dL (70-99) Calcium Level 8.8 mg/dL (8.5-10.1) Total Bilirubin 0.3 mg/dL (0.2-1.0) Aspartate Amino Transf (AST/SGOT) 9 U/L (15-37) Alanine Aminotransferase (ALT/SGPT) 16 U/L (14-59) Alkaline Phosphatase 73 U/L (46-116) Total Protein 7.3 g/dL (6.4-8.2) Albumin 3.1 g/dL (3.4-5.0) Albumin/Globulin Ratio 0.7 (1.0-1.7) Triglycerides Level 523 mg/dL (0-150) Cholesterol Level 233 mg/dL (0-200) LDL Cholesterol, Calculated mg/dL (0-100) VLDL Cholesterol, Calculated 105 mg/dL (0-40) Non-HDL Cholesterol Calculated 202 mg/dL (0-129) HDL Cholesterol 31 mg/dL (40-60) Cholesterol/HDL Ratio 7.5 Laboratory Tests Test 04/15/17 10:55 04/15/17 11:55 04/15/17 14:04 04/15/17 16:27 White Blood Count 6.0 x10^3/uL (4.0-11.0) Red Blood Count 4.48 x10^6/uL (3.50-5.40) Hemoglobin 13.2 g/dL (12.0-15.5) Hematocrit 40.8 % (36.0-47.0) Mean Corpuscular Volume 91 fL (79-100) Mean Corpuscular Hemoglobin 29 pg (25-35) Mean Corpuscular Hemoglobin Concent 32 g/dL (31-37) Red Cell Distribution Width 14.3 % (11.5-14.5) Platelet Count 143 x10^3/uL (140-400) Neutrophils (%) (Auto) 71 % (31-73) Lymphocytes (%) (Auto) 17 % (24-48) Monocytes (%) (Auto) 8 % (0-9) Eosinophils (%) (Auto) 3 % (0-3) Basophils (%) (Auto) 1 % (0-3) Neutrophils # (Auto) 4.3 x10^3uL (1.8-7.7) Lymphocytes # (Auto) 1.1 x10^3/uL (1.0-4.8) Monocytes # (Auto) 0.5 x10^3/uL (0.0-1.1) Eosinophils # (Auto) 0.2 x10^3/uL (0.0-0.7) Basophils # (Auto) 0.1 x10^3/uL (0.0-0.2) Prothrombin Time 13.6 SEC (11.7-14.0) Prothromb Time International Ratio 1.1 (0.8-1.1) Sodium Level 144 mmol/L (136-145) Potassium Level 5.2 mmol/L (3.5-5.1) Chloride Level 104 mmol/L (98-107) Carbon Dioxide Level 32 mmol/L (21-32) Anion Gap 8 (6-14) Blood Urea Nitrogen 31 mg/dL (7-20) Creatinine 1.1 mg/dL (0.6-1.0) Estimated GFR (Cockcroft-Gault) 48.0 BUN/Creatinine Ratio 28 (6-20) Glucose Level 280 mg/dL (70-99) Calcium Level 8.8 mg/dL (8.5-10.1) Magnesium Level 1.6 mg/dL (1.8-2.4) Total Bilirubin 0.2 mg/dL (0.2-1.0) Aspartate Amino Transf (AST/SGOT) 13 U/L (15-37) Alanine Aminotransferase (ALT/SGPT) 18 U/L (14-59) Alkaline Phosphatase 84 U/L (46-116) Troponin I Quantitative < 0.017 ng/mL (0.000-0.055) UC-Xrv-[id number]-Type Natriuretic Peptide 619 pg/mL (0-449) Total Protein 7.2 g/dL (6.4-8.2) Albumin 3.2 g/dL (3.4-5.0) Albumin/Globulin Ratio 0.8 (1.0-1.7) Urine Collection Type U cath Urine Color Yellow Urine Clarity Cloudy Urine pH 6.0 Urine Specific [place] 1.015 Urine Protein 100 mg/dL (NEG-TRACE) Urine Glucose (UA) Negative mg/dL (NEG) Urine Ketones (Stick) Negative mg/dL (NEG) Urine Blood Small (NEG) Urine Nitrite Negative (NEG) Urine Bilirubin Negative (NEG) Urine Urobilinogen Dipstick 0.2 mg/dL (0.2 mg/dL) Urine Leukocyte Esterase Large (NEG) Urine RBC Fobs /HPF (0-2) Urine WBC Tntc /HPF (0-4) Urine Renal Epithelial Cells Few /LPF Urine Bacteria Many /HPF (0-FEW) Urine Mucus Slight /LPF Nasal Screen MRSA (PCR) Negative (Negative) Glucose (Fingerstick) 184 mg/dL (70-99) Test 04/15/17 21:27 04/16/17 03:15 04/16/17 07:06 Glucose (Fingerstick) 179 mg/dL (70-99) 285 mg/dL (70-99) White Blood Count 6.0 x10^3/uL (4.0-11.0) Red Blood Count 4.42 x10^6/uL (3.50-5.40) Hemoglobin 13.0 g/dL (12.0-15.5) Hematocrit 40.4 % (36.0-47.0) Mean Corpuscular Volume 92 fL (79-100) Mean Corpuscular Hemoglobin 29 pg (25-35) Mean Corpuscular Hemoglobin Concent 32 g/dL (31-37) Red Cell Distribution Width 14.0 % (11.5-14.5) Platelet Count 137 x10^3/uL (140-400) Neutrophils (%) (Auto) 67 % (31-73) Lymphocytes (%) (Auto) 33 % (24-48) Monocytes (%) (Auto) 0 % (0-9) Eosinophils (%) (Auto) 0 % (0-3) Basophils (%) (Auto) 0 % (0-3) Neutrophils # (Auto) 4.0 x10^3uL (1.8-7.7) Lymphocytes # (Auto) 2.0 x10^3/uL (1.0-4.8) Monocytes # (Auto) 0.0 x10^3/uL (0.0-1.1) Eosinophils # (Auto) 0.0 x10^3/uL (0.0-0.7) Basophils # (Auto) 0.0 x10^3/uL (0.0-0.2) Sodium Level 142 mmol/L (136-145) Potassium Level 4.0 mmol/L (3.5-5.1) Chloride Level 104 mmol/L (98-107) Carbon Dioxide Level 26 mmol/L (21-32) Anion Gap 12 (6-14) Blood Urea Nitrogen 22 mg/dL (7-20) Creatinine 0.9 mg/dL (0.6-1.0) Estimated GFR (Cockcroft-Gault) 60.6 BUN/Creatinine Ratio 24 (6-20) Glucose Level 226 mg/dL (70-99) Calcium Level 8.8 mg/dL (8.5-10.1) Total Bilirubin 0.3 mg/dL (0.2-1.0) Aspartate Amino Transf (AST/SGOT) 9 U/L (15-37) Alanine Aminotransferase (ALT/SGPT) 16 U/L (14-59) Alkaline Phosphatase 73 U/L (46-116) Total Protein 7.3 g/dL (6.4-8.2) Albumin 3.1 g/dL (3.4-5.0) Albumin/Globulin Ratio 0.7 (1.0-1.7) Triglycerides Level 523 mg/dL (0-150) Cholesterol Level 233 mg/dL (0-200) LDL Cholesterol, Calculated mg/dL (0-100) VLDL Cholesterol, Calculated 105 mg/dL (0-40) Non-HDL Cholesterol Calculated 202 mg/dL (0-129) HDL Cholesterol 31 mg/dL (40-60) Cholesterol/HDL Ratio 7.5 Medications Current Medications Sodium Chloride 500 ml @ 500 mls/hr 1X ONCE IV Last administered on 13:09; Start 04/15/17 at 12:45; Stop 04/15/17 at 13:44; Status DC Magnesium Sulfate/ Dextrose 100 ml @ 100 mls/hr 1X ONCE IV Last administered on 04/15/17 13:08; Start 04/15/17 at 12:45; Stop 04/15/17 at 13:44; Status DC Magnesium Sulfate/ Dextrose 100 ml @ 100 mls/hr 1X ONCE IV Last administered on 04/15/17 16:29; Start 04/15/17 at 13:45; Stop 04/15/17 at 14:44; Status DC Enoxaparin Sodium (Lovenox 40mg Syringe) 40 mg Q24H SQ Last administered on 16:40; Start 04/15/17 at 15:00 Labetalol HCl 200 mg/Sodium Chloride 190 ml @ 10 mls/hr CONT PRN PRN IV PER PROTOCOL; Start 04/15/17 at 14:45; Stop 04/15/17 at 14:45; Status DC Simvastatin (Zocor) 10 mg QHS PO ; Start 04/15/17 at 21:00; Stop 04/16/17 at 08:55; Status DC Acetaminophen (Tylenol) 650 mg PRN Q6HRS PRN PO TEMP > 100.4F; Start 04/15/17 at 14:45 Acetaminophen (Acetaminophen Supp) 650 mg PRN Q4HRS PRN MA TEMP > 100.4F; Start 04/15/17 at 14:45 Aspirin (Dwayne Aspirin) 325 mg DAILYWBKFT PO ; Start 04/15/17 at 15:00; Stop 04/15/17 at 15:02; Status DC Labetalol HCl 400 mg/Miscellaneous 160 ml @ 48 mls/hr CONT PRN IV SEE I/O RECORD; Start 04/15/17 at 14:45 Amlodipine Besylate (Norvasc) 10 mg BID PO ; Start 04/15/17 at 21:00 Throat Lozenges (Cepacol Sore Throat Lozenge) 1 nicolette PRN Q1HR PRN MM SORE THROAT ; Start 04/15/17 at 15:00 Bisacodyl (Dulcolax Supp) 10 mg PRN DAILY PRN RC CONSTIPATION; Start 04/15/17 at 15:00 Buspirone HCl (Buspar) 10 mg TID PO ; Start 04/15/17 at 21:00 Calcium Carbonate/ Glycine (Oscal) 500 mg PRN Q6HRS PRN PO INDIGESTION; Start 04/15/17 at 15:00 Carvedilol (Coreg) 12.5 mg BIDWMEALS PO ; Start 04/15/17 at 17:00 Clopidogrel Bisulfate (Plavix) 75 mg DAILY PO ; Start 04/16/17 at 09:00 Cyclobenzaprine HCl (Flexeril) 10 mg BID PO ; Start 04/15/17 at 21:00 Diphenhydramine HCl (Benadryl) 25 mg PRN Q8HRS PRN PO IT; Start 04/15/17 at 15 :00 Fentanyl (Duragesic 12mcg/ Hr Patch) 1 patch Q72H TD Last administered on 04/15 16:45; Start 04/15/17 at 15:00 Ferrous Sulfate (Feosol) 325 mg TIDWMEALS PO ; Start 04/15/17 at 17:00 Furosemide (Lasix) 40 mg BID92 PO ; Start 04/15/17 at 16:00 Insulin Detemir (Levemir) 15 units QHS SQ ; Start 04/15/17 at 21:00 Insulin Detemir (Levemir) 25 units DAILYWBKFT SQ Last administered on 08:08; Start 04/16/17 at 08:00 Letrozole (Femara) 2.5 mg DAILY PO ; Start 04/16/17 at 09:00 Levothyroxine Sodium (Synthroid) 25 mcg DAILY07 PO ; Start 04/16/17 at 09:00 Lorazepam (Ativan) 1 mg DAILY PO ; Start 04/16/17 at 09:00 Lorazepam (Ativan) 1 mg PRN Q6HRS PRN PO ANXIETY; Start 04/15/17 at 15:00 Mirtazapine (Remeron) 22.5 mg HS PO ; Start 04/15/17 at 21:00 Nitroglycerin (Nitro-Dur 0.6mg) 1 patch DAILY TD Last administered on 08:02; Start 04/16/17 at 09:00 Nystatin (Nystop) 1 judy PRN Q72HRS PRN TP REDNESS; Start 04/15/17 at 15:00 Oxycodone/ Acetaminophen (Percocet 5/325) 2 tab PRN Q4HRS PRN PO PAIN; Start 04/15/17 at 15:00 Prochlorperazine (Compazine) 12.5 mg PRN Q4HRS PRN RC TULIO; Start 04/15/17 at 15:00 Senna/Docusate Sodium (Senna Plus) 1 tab DAILY PO ; Start 04/16/17 at 09:00 Insulin Aspart (NovoLOG) 16 units QIDACHS SQ Last administered on 04/16/17 08 :08; Start 04/15/17 at 16:30 Multivitamins (Thera M Plus) 1 tab DAILY PO ; Start 04/16/17 at 09:00 Pantoprazole Sodium (Protonix) 40 mg DAILYAC PO ; Start 04/16/17 at 07:30 Artificial Tears (Artificial Tears) 2 drop QID OU Last administered on 08:00; Start 04/15/17 at 16:00 Venlafaxine HCl (Effexor Xr) 75 mg DAILY PO ; Start 04/16/17 at 09:00 Al Hydroxide/Mg Hydroxide (Mylanta Plus Xs) 30 ml PRN Q3HRS PRN PO HEARTBURN / GAS; Start 04/15/17 at 16:00 Aspirin (Ecotrin) 81 mg DAILYWBKFT PO ; Start 04/16/17 at 08:00 Magnesium Oxide (Magnesium Oxide) 400 mg DAILY PO ; Start 04/16/17 at 09:00 Potassium Chloride (Klor-Con) 20 meq DAILYWBKFT PO ; Start 04/16/17 at 08:00 Hydralazine HCl (Apresoline Inj) 10 mg PRN Q4HRS PRN IVP ELEVATED BP, SEE COMMENTS; Start 04/15/17 at 16:45 Sodium Chloride 1,000 ml @ 30 mls/hr Q24H IV Last administered on 04/15/17 18:34; Start 04/15/17 at 17:15 Simvastatin (Zocor) 20 mg HS PO ; Start 04/16/17 at 21:00 Iohexol (Omnipaque 300 Mg/ml) 75 ml 1X ONCE IV ; Start 04/16/17 at 09:15; Stop 04/16/17 at 09:16; Status DC Info (Do NOT chart on this entry -- for MONITORING) 1 each PRN DAILY PRN MC SEE COMMENTS; Start 04/16/17 at 09:15; Stop 04/18/17 at 09:14 Active Scripts Active FENTANYL 12mcg/hr (Fentanyl) 1 Each Patch.td72 1 Each TD Q72H Percocet 5-325 Mg Tablet (Oxycodone/Acetaminophen) 1 Each Tablet 2 Tab PO PRN Q4HRS PRN Levemir Flextouch (Insulin Detemir) 100 Unit/1 Ml Insuln.pen 15 Units SQ QHS 30 Days Levemir Flextouch (Insulin Detemir) 100 Unit/1 Ml Insuln.pen 25 Units SQ DAILYWBKFT 30 Days Carvedilol 12.5 Mg Tablet 12.5 Mg PO BIDWMEALS 30 Days Reported Magnesium Oxide 400 Mg Tablet 1 Tab PO DAILY Potassium Chloride 20 Meq Tablet.er 20 Meq PO DAILY Femara (Letrozole) 2.5 Mg Tablet 2.5 Mg PO DAILY Systane Ultra 0.4-0.3% Eye Drp (Propylene Glycol/Peg 400) 10 Ml Drops 2 Drop OP QID Senna Plus Tablet (Sennosides/Docusate Sodium) 1 Each Tablet 1 Each PO DAILY Nystatin 15 Gm Powder 1 Judy TP PRN Q72HRS PRN APPLY TO ABDOMEN PRN REDNESS Novolog (Insulin Aspart) 100 Unit/1 Ml Cartridge 16 Unit SQ ACHS Feosol (Ferrous Sulfate) 325 Mg Tablet 325 Mg PO TID Effexor Xr (Venlafaxine Hcl) 75 Mg Cap.er.24h 75 Mg PO DAILY Benadryl (Diphenhydramine Hcl) 25 Mg Capsule 25 Mg PO PRN Q8HRS PRN Ativan (Lorazepam) 1 Mg Tablet 1 Mg PO PRN Q6HRS PRN Furosemide 40 Mg Tablet 40 Mg PO BID Buspirone Hcl 10 Mg Tablet 10 Mg PO TID Remeron (Mirtazapine) 15 Mg Tablet 22.5 Mg PO HS [Mylanta] 30 Ml PO PRN Q3HRS PRN Multivitamins (Multivitamin) 1 Each Capsule 1 Each PO DAILY Compazine (Prochlorperazine Maleate) 25 Mg Supp.rect 10 Mg RC PRN Q4HRS PRN Cepacol Sore Throat Lozenge (Benzocaine/Menthol) 1 Each Lozenge 1 Each MM PRN Q1HR PRN Calcium Carbonate 500 Mg Tablet 500 Mg PO PRN Q6HRS PRN Bisacodyl 10 Mg Supp.rect 10 Mg RC PRN DAILY PRN Ativan (Lorazepam) 1 Mg Tablet 1 Mg PO DAILY EVERY E,ESTEFANÍA,SAT FOR ANXIETY ,GIVE 1/2 HR.BEFORE DIALYSIS Amlodipine Besylate 5 Mg Tablet 10 Mg PO BID Pantoprazole Sodium 20 Mg Tablet.dr 40 Mg PO DAILY NITRO-DUR 0.6mg/hr (Nitroglycerin) 1 Each Patch.td24 1 Each TD DAILY Levothyroxine Sodium 25 Mcg Tablet 25 Mcg PO DAILY Cyclobenzaprine Hcl 10 Mg Tablet 10 Mg PO BID Clopidogrel (Clopidogrel Bisulfate) 75 Mg Tablet 75 Mg PO DAILY Vitals/I & O Vital Sign - Last 24 Hours 04/15/17 04/15/17 04/15/17 04/15/17 10:15 10:49 11:54 12:21 Temp 97.6 97.6 Pulse 89 70 76 72 Resp 16 12 14 11 B/P (MAP) 175/91 (119) Pulse Ox 97 95 96 95 O2 Delivery Room Air 04/15/17 04/15/17 04/15/17 04/15/17 12:51 14:59 15:00 15:13 Temp 97.5 97.5 97.5 97.5 Pulse 64 68 68 Resp 12 19 19 B/P (MAP) 189/70 (109) 189/70 (109) Pulse Ox 96 95 95 O2 Delivery Room Air Room Air Room Air 04/15/17 04/15/17 04/15/17 04/15/17 16:45 19:25 20:15 21:00 Temp 98.2 98.2 Pulse 77 77 Resp 16 16 B/P (MAP) 158/49 (85) 158/49 Pulse Ox 97 O2 Delivery Room Air Room Air Room Air 04/15/17 04/15/17 04/16/17 04/16/17 21:32 23:25 03:25 07:10 Temp 97.7 97.6 97.7 97.7 97.6 97.7 Pulse 74 75 87 Resp 16 16 18 B/P (MAP) 175/70 (105) 179/63 (101) 153/71 (98) Pulse Ox 97 96 97 96 O2 Delivery Room Air Room Air Room Air Room Air 04/16/17 07:41 O2 Delivery Room Air Intake and Output 04/15/17 04/15/17 04/16/17 14:59 22:59 06:59 Intake Total 0 ml 0 ml Balance 0 ml 0 ml Images MRI brain: FINDINGS: Diffusion-weighted hyperintense acute infarcts with restricted diffusion of intracellular water on the ADC map involving the ventral and central [place] 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 Subtle subcentimeter diffusion-weighted hyperintense lesion of the deep right frontal paratracheal white matter the tibial image 20 may be an artifact although a subtle acute infarct at this location cannot be excluded. Cavitation and T2-weighted signal abnormality of genu and body of the corpus callosum with surrounding periventricular bilateral cerebral white matter T2 weighted hyperintensity. Mild ventriculomegaly. No obstructive hydrocephalus. Mild generalized brain atrophy. There are linear and cavitary periventricular cerebral white matter T2-weighted hyperintense lesions present. Intracranial vascular flow voids intact. No acute intracranial hemorrhage. No mass. 2 cm oblong left cerebellopontine angle arachnoid cyst posterior of the internal auditory canal lateral cerebellum. Orbits, mastoids and paranasal sinuses are unremarkable. IMPRESSION: 1. 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 2. Cerebral periventricular and corpus callosum cavitary and T2-weighted hyperintense lesions are present. This could be indicative of chronic microvascular disease with lacunar infarcts, versus chronic demyelinating disease such as multiple sclerosis. 3. Subcentimeter diffusion-weighted hyperintense lesion of the deep right frontal lobe white matter, a small acute lacunar infarct is not excluded. 4. Small arachnoid cyst at the left cerebellopontine angle. Carotid Dopplers: Mild to moderate atherosclerotic plaquing at both carotid bifurcations with underlying luminal narrowing in the 0-50% diameter range bilaterally. BENJAMÍN HEBERT MD Apr 16, 2017 10:03
--- NOTE | 2017-04-16 11:02 | PDOC ---
PROGRESS NOTES Chief Complaint Chief Complaint CVA Dehydration Afib HTN HLD DM2 CKD History of Present Illness History of Present Illness Patient had a head CT, CXR, carotid doppler, and brain MRI completed. The MRI results are listed below, and supported patient failed outpt plavix and low- dose aspirin was added, will defer anticoagulation to cardio input. Will await results of swallow eval. Neuro requesting CTA and will await these results as well. Okay to d/c when determined by subspecialists. 1. 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 2. Cerebral periventricular and corpus callosum cavitary and T2-weighted hyperintense lesions are present. This could be indicative of chronic microvascular disease with lacunar infarcts, versus chronic demyelinating disease such as multiple sclerosis. 3. Subcentimeter diffusion-weighted hyperintense lesion of the deep right frontal lobe white matter, a small acute lacunar infarct is not excluded. 4. Small arachnoid cyst at the left cerebellopontine angle. Vitals Vitals Vital Signs Date Time Temp Pulse Resp B/P (MAP) Pulse Ox O2 Delivery O2 Flow Rate FiO2 04/16/17 07:41 Room Air 04/16/17 07:10 97.7 87 18 153/71 (98) 96 97.7 Physical Exam General: Alert, Oriented X3, Cooperative, No acute distress Heart: Normal S1, Normal S2, Other (2/6 systolic murmur,. IRR; tele AFIB with controlled ventricular rate ) Lungs: Clear Abdomen: Soft, Other (obese) Extremities: No edema Skin: No breakdown, No significant lesion Labs LABS Laboratory Tests Test 04/15/17 11:55 04/15/17 14:04 04/15/17 16:27 04/15/17 21:27 Urine Collection Type U cath Urine Color Yellow Urine Clarity Cloudy Urine pH 6.0 Urine Specific [place] 1.015 Urine Protein 100 mg/dL (NEG-TRACE) Urine Glucose (UA) Negative mg/dL (NEG) Urine Ketones (Stick) Negative mg/dL (NEG) Urine Blood Small (NEG) Urine Nitrite Negative (NEG) Urine Bilirubin Negative (NEG) Urine Urobilinogen Dipstick 0.2 mg/dL (0.2 mg/dL) Urine Leukocyte Esterase Large (NEG) Urine RBC Fobs /HPF (0-2) Urine WBC Tntc /HPF (0-4) Urine Renal Epithelial Cells Few /LPF Urine Bacteria Many /HPF (0-FEW) Urine Mucus Slight /LPF Nasal Screen MRSA (PCR) Negative (Negative) Glucose (Fingerstick) 184 mg/dL (70-99) 179 mg/dL (70-99) Test 04/16/17 03:15 04/16/17 07:06 White Blood Count 6.0 x10^3/uL (4.0-11.0) Red Blood Count 4.42 x10^6/uL (3.50-5.40) Hemoglobin 13.0 g/dL (12.0-15.5) Hematocrit 40.4 % (36.0-47.0) Mean Corpuscular Volume 92 fL (79-100) Mean Corpuscular Hemoglobin 29 pg (25-35) Mean Corpuscular Hemoglobin Concent 32 g/dL (31-37) Red Cell Distribution Width 14.0 % (11.5-14.5) Platelet Count 137 x10^3/uL (140-400) Neutrophils (%) (Auto) 67 % (31-73) Lymphocytes (%) (Auto) 33 % (24-48) Monocytes (%) (Auto) 0 % (0-9) Eosinophils (%) (Auto) 0 % (0-3) Basophils (%) (Auto) 0 % (0-3) Neutrophils # (Auto) 4.0 x10^3uL (1.8-7.7) Lymphocytes # (Auto) 2.0 x10^3/uL (1.0-4.8) Monocytes # (Auto) 0.0 x10^3/uL (0.0-1.1) Eosinophils # (Auto) 0.0 x10^3/uL (0.0-0.7) Basophils # (Auto) 0.0 x10^3/uL (0.0-0.2) Sodium Level 142 mmol/L (136-145) Potassium Level 4.0 mmol/L (3.5-5.1) Chloride Level 104 mmol/L (98-107) Carbon Dioxide Level 26 mmol/L (21-32) Anion Gap 12 (6-14) Blood Urea Nitrogen 22 mg/dL (7-20) Creatinine 0.9 mg/dL (0.6-1.0) Estimated GFR (Cockcroft-Gault) 60.6 BUN/Creatinine Ratio 24 (6-20) Glucose Level 226 mg/dL (70-99) Calcium Level 8.8 mg/dL (8.5-10.1) Total Bilirubin 0.3 mg/dL (0.2-1.0) Aspartate Amino Transf (AST/SGOT) 9 U/L (15-37) Alanine Aminotransferase (ALT/SGPT) 16 U/L (14-59) Alkaline Phosphatase 73 U/L (46-116) Total Protein 7.3 g/dL (6.4-8.2) Albumin 3.1 g/dL (3.4-5.0) Albumin/Globulin Ratio 0.7 (1.0-1.7) Triglycerides Level 523 mg/dL (0-150) Cholesterol Level 233 mg/dL (0-200) LDL Cholesterol, Calculated mg/dL (0-100) VLDL Cholesterol, Calculated 105 mg/dL (0-40) Non-HDL Cholesterol Calculated 202 mg/dL (0-129) HDL Cholesterol 31 mg/dL (40-60) Cholesterol/HDL Ratio 7.5 Glucose (Fingerstick) 285 mg/dL (70-99) Review of Systems Review of Systems Patient reports chronic L sided weakness Patient denies KENNEDY Patient denies confusion Assessment and Plan Assessmemt and Plan Problems Medical Problems: (1) Atrial fibrillation Status: Acute (2) Dehydration Status: Acute (3) Electrolyte abnormality Status: Acute (4) Stroke Status: Acute Assessment: CVA Dehydration Afib HTN HLD DM2 CKD Plan: Await results of swallow eval Await results of CTA PT/OT Home meds Anticoagulation as per cardio D/c when okay with subspecialist Problems: Comment Review of Relevant I have reviewed the following items zaheer (where applicable) has been applied. Labs Laboratory Tests Test 04/15/17 10:55 04/15/17 11:55 04/15/17 14:04 04/15/17 16:27 White Blood Count 6.0 x10^3/uL (4.0-11.0) Red Blood Count 4.48 x10^6/uL (3.50-5.40) Hemoglobin 13.2 g/dL (12.0-15.5) Hematocrit 40.8 % (36.0-47.0) Mean Corpuscular Volume 91 fL (79-100) Mean Corpuscular Hemoglobin 29 pg (25-35) Mean Corpuscular Hemoglobin Concent 32 g/dL (31-37) Red Cell Distribution Width 14.3 % (11.5-14.5) Platelet Count 143 x10^3/uL (140-400) Neutrophils (%) (Auto) 71 % (31-73) Lymphocytes (%) (Auto) 17 % (24-48) Monocytes (%) (Auto) 8 % (0-9) Eosinophils (%) (Auto) 3 % (0-3) Basophils (%) (Auto) 1 % (0-3) Neutrophils # (Auto) 4.3 x10^3uL (1.8-7.7) Lymphocytes # (Auto) 1.1 x10^3/uL (1.0-4.8) Monocytes # (Auto) 0.5 x10^3/uL (0.0-1.1) Eosinophils # (Auto) 0.2 x10^3/uL (0.0-0.7) Basophils # (Auto) 0.1 x10^3/uL (0.0-0.2) Prothrombin Time 13.6 SEC (11.7-14.0) Prothromb Time International Ratio 1.1 (0.8-1.1) Sodium Level 144 mmol/L (136-145) Potassium Level 5.2 mmol/L (3.5-5.1) Chloride Level 104 mmol/L (98-107) Carbon Dioxide Level 32 mmol/L (21-32) Anion Gap 8 (6-14) Blood Urea Nitrogen 31 mg/dL (7-20) Creatinine 1.1 mg/dL (0.6-1.0) Estimated GFR (Cockcroft-Gault) 48.0 BUN/Creatinine Ratio 28 (6-20) Glucose Level 280 mg/dL (70-99) Calcium Level 8.8 mg/dL (8.5-10.1) Magnesium Level 1.6 mg/dL (1.8-2.4) Total Bilirubin 0.2 mg/dL (0.2-1.0) Aspartate Amino Transf (AST/SGOT) 13 U/L (15-37) Alanine Aminotransferase (ALT/SGPT) 18 U/L (14-59) Alkaline Phosphatase 84 U/L (46-116) Troponin I Quantitative < 0.017 ng/mL (0.000-0.055) BM-Qfy-M-Type Natriuretic Peptide 619 pg/mL (0-449) Total Protein 7.2 g/dL (6.4-8.2) Albumin 3.2 g/dL (3.4-5.0) Albumin/Globulin Ratio 0.8 (1.0-1.7) Urine Collection Type U cath Urine Color Yellow Urine Clarity Cloudy Urine pH 6.0 Urine Specific [place] 1.015 Urine Protein 100 mg/dL (NEG-TRACE) Urine Glucose (UA) Negative mg/dL (NEG) Urine Ketones (Stick) Negative mg/dL (NEG) Urine Blood Small (NEG) Urine Nitrite Negative (NEG) Urine Bilirubin Negative (NEG) Urine Urobilinogen Dipstick 0.2 mg/dL (0.2 mg/dL) Urine Leukocyte Esterase Large (NEG) Urine RBC Fobs /HPF (0-2) Urine WBC Tntc /HPF (0-4) Urine Renal Epithelial Cells Few /LPF Urine Bacteria Many /HPF (0-FEW) Urine Mucus Slight /LPF Nasal Screen MRSA (PCR) Negative (Negative) Glucose (Fingerstick) 184 mg/dL (70-99) Test 04/15/17 21:27 04/16/17 03:15 04/16/17 07:06 Glucose (Fingerstick) 179 mg/dL (70-99) 285 mg/dL (70-99) White Blood Count 6.0 x10^3/uL (4.0-11.0) Red Blood Count 4.42 x10^6/uL (3.50-5.40) Hemoglobin 13.0 g/dL (12.0-15.5) Hematocrit 40.4 % (36.0-47.0) Mean Corpuscular Volume 92 fL (79-100) Mean Corpuscular Hemoglobin 29 pg (25-35) Mean Corpuscular Hemoglobin Concent 32 g/dL (31-37) Red Cell Distribution Width 14.0 % (11.5-14.5) Platelet Count 137 x10^3/uL (140-400) Neutrophils (%) (Auto) 67 % (31-73) Lymphocytes (%) (Auto) 33 % (24-48) Monocytes (%) (Auto) 0 % (0-9) Eosinophils (%) (Auto) 0 % (0-3) Basophils (%) (Auto) 0 % (0-3) Neutrophils # (Auto) 4.0 x10^3uL (1.8-7.7) Lymphocytes # (Auto) 2.0 x10^3/uL (1.0-4.8) Monocytes # (Auto) 0.0 x10^3/uL (0.0-1.1) Eosinophils # (Auto) 0.0 x10^3/uL (0.0-0.7) Basophils # (Auto) 0.0 x10^3/uL (0.0-0.2) Sodium Level 142 mmol/L (136-145) Potassium Level 4.0 mmol/L (3.5-5.1) Chloride Level 104 mmol/L (98-107) Carbon Dioxide Level 26 mmol/L (21-32) Anion Gap 12 (6-14) Blood Urea Nitrogen 22 mg/dL (7-20) Creatinine 0.9 mg/dL (0.6-1.0) Estimated GFR (Cockcroft-Gault) 60.6 BUN/Creatinine Ratio 24 (6-20) Glucose Level 226 mg/dL (70-99) Calcium Level 8.8 mg/dL (8.5-10.1) Total Bilirubin 0.3 mg/dL (0.2-1.0) Aspartate Amino Transf (AST/SGOT) 9 U/L (15-37) Alanine Aminotransferase (ALT/SGPT) 16 U/L (14-59) Alkaline Phosphatase 73 U/L (46-116) Total Protein 7.3 g/dL (6.4-8.2) Albumin 3.1 g/dL (3.4-5.0) Albumin/Globulin Ratio 0.7 (1.0-1.7) Triglycerides Level 523 mg/dL (0-150) Cholesterol Level 233 mg/dL (0-200) LDL Cholesterol, Calculated mg/dL (0-100) VLDL Cholesterol, Calculated 105 mg/dL (0-40) Non-HDL Cholesterol Calculated 202 mg/dL (0-129) HDL Cholesterol 31 mg/dL (40-60) Cholesterol/HDL Ratio 7.5 Laboratory Tests Test 04/15/17 11:55 04/15/17 14:04 04/15/17 16:27 04/15/17 21:27 Urine Collection Type U cath Urine Color Yellow Urine Clarity Cloudy Urine pH 6.0 Urine Specific [place] 1.015 Urine Protein 100 mg/dL (NEG-TRACE) Urine Glucose (UA) Negative mg/dL (NEG) Urine Ketones (Stick) Negative mg/dL (NEG) Urine Blood Small (NEG) Urine Nitrite Negative (NEG) Urine Bilirubin Negative (NEG) Urine Urobilinogen Dipstick 0.2 mg/dL (0.2 mg/dL) Urine Leukocyte Esterase Large (NEG) Urine RBC Fobs /HPF (0-2) Urine WBC Tntc /HPF (0-4) Urine Renal Epithelial Cells Few /LPF Urine Bacteria Many /HPF (0-FEW) Urine Mucus Slight /LPF Nasal Screen MRSA (PCR) Negative (Negative) Glucose (Fingerstick) 184 mg/dL (70-99) 179 mg/dL (70-99) Test 04/16/17 03:15 04/16/17 07:06 White Blood Count 6.0 x10^3/uL (4.0-11.0) Red Blood Count 4.42 x10^6/uL (3.50-5.40) Hemoglobin 13.0 g/dL (12.0-15.5) Hematocrit 40.4 % (36.0-47.0) Mean Corpuscular Volume 92 fL (79-100) Mean Corpuscular Hemoglobin 29 pg (25-35) Mean Corpuscular Hemoglobin Concent 32 g/dL (31-37) Red Cell Distribution Width 14.0 % (11.5-14.5) Platelet Count 137 x10^3/uL (140-400) Neutrophils (%) (Auto) 67 % (31-73) Lymphocytes (%) (Auto) 33 % (24-48) Monocytes (%) (Auto) 0 % (0-9) Eosinophils (%) (Auto) 0 % (0-3) Basophils (%) (Auto) 0 % (0-3) Neutrophils # (Auto) 4.0 x10^3uL (1.8-7.7) Lymphocytes # (Auto) 2.0 x10^3/uL (1.0-4.8) Monocytes # (Auto) 0.0 x10^3/uL (0.0-1.1) Eosinophils # (Auto) 0.0 x10^3/uL (0.0-0.7) Basophils # (Auto) 0.0 x10^3/uL (0.0-0.2) Sodium Level 142 mmol/L (136-145) Potassium Level 4.0 mmol/L (3.5-5.1) Chloride Level 104 mmol/L (98-107) Carbon Dioxide Level 26 mmol/L (21-32) Anion Gap 12 (6-14) Blood Urea Nitrogen 22 mg/dL (7-20) Creatinine 0.9 mg/dL (0.6-1.0) Estimated GFR (Cockcroft-Gault) 60.6 BUN/Creatinine Ratio 24 (6-20) Glucose Level 226 mg/dL (70-99) Calcium Level 8.8 mg/dL (8.5-10.1) Total Bilirubin 0.3 mg/dL (0.2-1.0) Aspartate Amino Transf (AST/SGOT) 9 U/L (15-37) Alanine Aminotransferase (ALT/SGPT) 16 U/L (14-59) Alkaline Phosphatase 73 U/L (46-116) Total Protein 7.3 g/dL (6.4-8.2) Albumin 3.1 g/dL (3.4-5.0) Albumin/Globulin Ratio 0.7 (1.0-1.7) Triglycerides Level 523 mg/dL (0-150) Cholesterol Level 233 mg/dL (0-200) LDL Cholesterol, Calculated mg/dL (0-100) VLDL Cholesterol, Calculated 105 mg/dL (0-40) Non-HDL Cholesterol Calculated 202 mg/dL (0-129) HDL Cholesterol 31 mg/dL (40-60) Cholesterol/HDL Ratio 7.5 Glucose (Fingerstick) 285 mg/dL (70-99) Medications Current Medications Sodium Chloride 500 ml @ 500 mls/hr 1X ONCE IV Last administered on 13:09; Start 04/15/17 at 12:45; Stop 04/15/17 at 13:44; Status DC Magnesium Sulfate/ Dextrose 100 ml @ 100 mls/hr 1X ONCE IV Last administered on 04/15/17 13:08; Start 04/15/17 at 12:45; Stop 04/15/17 at 13:44; Status DC Magnesium Sulfate/ Dextrose 100 ml @ 100 mls/hr 1X ONCE IV Last administered on 04/15/17t 16:29; Start 04/15/17 at 13:45; Stop 04/15/17 at 14:44; Status DC Enoxaparin Sodium (Lovenox 40mg Syringe) 40 mg Q24H SQ Last administered on t 16:40; Start 04/15/17 at 15:00 Labetalol HCl 200 mg/Sodium Chloride 190 ml @ 10 mls/hr CONT PRN PRN IV PER PROTOCOL; Start 04/15/17 at 14:45; Stop 04/15/17 at 14:45; Status DC Simvastatin (Zocor) 10 mg QHS PO ; Start 04/15/17 at 21:00; Stop 04/16/17 at 08:55; Status DC Acetaminophen (Tylenol) 650 mg PRN Q6HRS PRN PO TEMP > 100.4F; Start 04/15/17 at 14:45 Acetaminophen (Acetaminophen Supp) 650 mg PRN Q4HRS PRN MI TEMP > 100.4F; Start 04/15/17 at 14:45 Aspirin (Dwayne Aspirin) 325 mg DAILYWBKFT PO ; Start 04/15/17 at 15:00; Stop 04/15/17 at 15:02; Status DC Labetalol HCl 400 mg/Miscellaneous 160 ml @ 48 mls/hr CONT PRN IV SEE I/O RECORD; Start 04/15/17 at 14:45 Amlodipine Besylate (Norvasc) 10 mg BID PO ; Start 04/15/17 at 21:00 Throat Lozenges (Cepacol Sore Throat Lozenge) 1 nicolette PRN Q1HR PRN MM SORE THROAT ; Start 04/15/17 at 15:00 Bisacodyl (Dulcolax Supp) 10 mg PRN DAILY PRN RC CONSTIPATION; Start 04/15/17 at 15:00 Buspirone HCl (Buspar) 10 mg TID PO ; Start 04/15/17 at 21:00 Calcium Carbonate/ Glycine (Oscal) 500 mg PRN Q6HRS PRN PO INDIGESTION; Start 04/15/17 at 15:00 Carvedilol (Coreg) 12.5 mg BIDWMEALS PO ; Start 04/15/17 at 17:00 Clopidogrel Bisulfate (Plavix) 75 mg DAILY PO ; Start 04/16/17 at 09:00 Cyclobenzaprine HCl (Flexeril) 10 mg BID PO ; Start 04/15/17 at 21:00 Diphenhydramine HCl (Benadryl) 25 mg PRN Q8HRS PRN PO IT; Start 04/15/17 at 15 :00 Fentanyl (Duragesic 12mcg/ Hr Patch) 1 patch Q72H TD Last administered on 04/15 16:45; Start 04/15/17 at 15:00 Ferrous Sulfate (Feosol) 325 mg TIDWMEALS PO ; Start 04/15/17 at 17:00 Furosemide (Lasix) 40 mg BID92 PO ; Start 04/15/17 at 16:00 Insulin Detemir (Levemir) 15 units QHS SQ ; Start 04/15/17 at 21:00 Insulin Detemir (Levemir) 25 units DAILYWBKFT SQ Last administered on 08:08; Start 04/16/17 at 08:00 Letrozole (Femara) 2.5 mg DAILY PO ; Start 04/16/17 at 09:00 Levothyroxine Sodium (Synthroid) 25 mcg DAILY07 PO ; Start 04/16/17 at 09:00 Lorazepam (Ativan) 1 mg DAILY PO ; Start 04/16/17 at 09:00 Lorazepam (Ativan) 1 mg PRN Q6HRS PRN PO ANXIETY; Start 04/15/17 at 15:00 Mirtazapine (Remeron) 22.5 mg HS PO ; Start 04/15/17 at 21:00 Nitroglycerin (Nitro-Dur 0.6mg) 1 patch DAILY TD Last administered on 08:02; Start 04/16/17 at 09:00 Nystatin (Nystop) 1 judy PRN Q72HRS PRN TP REDNESS; Start 04/15/17 at 15:00 Oxycodone/ Acetaminophen (Percocet 5/325) 2 tab PRN Q4HRS PRN PO PAIN; Start 04/15/17 at 15:00 Prochlorperazine (Compazine) 12.5 mg PRN Q4HRS PRN RC TULIO; Start 04/15/17 at 15:00 Senna/Docusate Sodium (Senna Plus) 1 tab DAILY PO ; Start 04/16/17 at 09:00 Insulin Aspart (NovoLOG) 16 units QIDACHS SQ Last administered on 04/16/17 08 :08; Start 04/15/17 at 16:30 Multivitamins (Thera M Plus) 1 tab DAILY PO ; Start 04/16/17 at 09:00 Pantoprazole Sodium (Protonix) 40 mg DAILYAC PO ; Start 04/16/17 at 07:30 Artificial Tears (Artificial Tears) 2 drop QID OU Last administered on 08:00; Start 04/15/17 at 16:00 Venlafaxine HCl (Effexor Xr) 75 mg DAILY PO ; Start 04/16/17 at 09:00 Al Hydroxide/Mg Hydroxide (Mylanta Plus Xs) 30 ml PRN Q3HRS PRN PO HEARTBURN / GAS; Start 04/15/17 at 16:00 Aspirin (Ecotrin) 81 mg DAILYWBKFT PO ; Start 04/16/17 at 08:00 Magnesium Oxide (Magnesium Oxide) 400 mg DAILY PO ; Start 04/16/17 at 09:00 Potassium Chloride (Klor-Con) 20 meq DAILYWBKFT PO ; Start 04/16/17 at 08:00 Hydralazine HCl (Apresoline Inj) 10 mg PRN Q4HRS PRN IVP ELEVATED BP, SEE COMMENTS; Start 04/15/17 at 16:45 Sodium Chloride 1,000 ml @ 30 mls/hr Q24H IV Last administered on 04/15/17 18:34; Start 04/15/17 at 17:15 Simvastatin (Zocor) 20 mg HS PO ; Start 04/16/17 at 21:00 Iohexol (Omnipaque 300 Mg/ml) 75 ml 1X ONCE IV ; Start 04/16/17 at 09:15; Stop 04/16/17 at 09:16; Status DC Info (Do NOT chart on this entry -- for MONITORING) 1 each PRN DAILY PRN MC SEE COMMENTS; Start 04/16/17 at 09:15; Stop 04/18/17 at 09:14 Active Scripts Active FENTANYL 12mcg/hr (Fentanyl) 1 Each Patch.td72 1 Each TD Q72H Percocet 5-325 Mg Tablet (Oxycodone/Acetaminophen) 1 Each Tablet 2 Tab PO PRN Q4HRS PRN Levemir Flextouch (Insulin Detemir) 100 Unit/1 Ml Insuln.pen 15 Units SQ QHS 30 Days Levemir Flextouch (Insulin Detemir) 100 Unit/1 Ml Insuln.pen 25 Units SQ DAILYWBKFT 30 Days Carvedilol 12.5 Mg Tablet 12.5 Mg PO BIDWMEALS 30 Days Reported Magnesium Oxide 400 Mg Tablet 1 Tab PO DAILY Potassium Chloride 20 Meq Tablet.er 20 Meq PO DAILY Femara (Letrozole) 2.5 Mg Tablet 2.5 Mg PO DAILY Systane Ultra 0.4-0.3% Eye Drp (Propylene Glycol/Peg 400) 10 Ml Drops 2 Drop OP QID Senna Plus Tablet (Sennosides/Docusate Sodium) 1 Each Tablet 1 Each PO DAILY Nystatin 15 Gm Powder 1 Judy TP PRN Q72HRS PRN APPLY TO ABDOMEN PRN REDNESS Novolog (Insulin Aspart) 100 Unit/1 Ml Cartridge 16 Unit SQ ACHS Feosol (Ferrous Sulfate) 325 Mg Tablet 325 Mg PO TID Effexor Xr (Venlafaxine Hcl) 75 Mg Cap.er.24h 75 Mg PO DAILY Benadryl (Diphenhydramine Hcl) 25 Mg Capsule 25 Mg PO PRN Q8HRS PRN Ativan (Lorazepam) 1 Mg Tablet 1 Mg PO PRN Q6HRS PRN Furosemide 40 Mg Tablet 40 Mg PO BID Buspirone Hcl 10 Mg Tablet 10 Mg PO TID Remeron (Mirtazapine) 15 Mg Tablet 22.5 Mg PO HS [Mylanta] 30 Ml PO PRN Q3HRS PRN Multivitamins (Multivitamin) 1 Each Capsule 1 Each PO DAILY Compazine (Prochlorperazine Maleate) 25 Mg Supp.rect 10 Mg RC PRN Q4HRS PRN Cepacol Sore Throat Lozenge (Benzocaine/Menthol) 1 Each Lozenge 1 Each MM PRN Q1HR PRN Calcium Carbonate 500 Mg Tablet 500 Mg PO PRN Q6HRS PRN Bisacodyl 10 Mg Supp.rect 10 Mg RC PRN DAILY PRN Ativan (Lorazepam) 1 Mg Tablet 1 Mg PO DAILY EVERY FRI,ESTEFANÍA,SAT FOR ANXIETY ,GIVE 1/2 HR.BEFORE DIALYSIS Amlodipine Besylate 5 Mg Tablet 10 Mg PO BID Pantoprazole Sodium 20 Mg Tablet.dr 40 Mg PO DAILY NITRO-DUR 0.6mg/hr (Nitroglycerin) 1 Each Patch.td24 1 Each TD DAILY Levothyroxine Sodium 25 Mcg Tablet 25 Mcg PO DAILY Cyclobenzaprine Hcl 10 Mg Tablet 10 Mg PO BID Clopidogrel (Clopidogrel Bisulfate) 75 Mg Tablet 75 Mg PO DAILY Vitals/I & O Vital Sign - Last 24 Hours 04/15/17 04/15/17 04/15/17 04/15/17 11:54 12:21 12:51 14:59 Temp 97.5 97.5 Pulse 76 72 64 68 Resp 14 11 12 19 B/P (MAP) 189/70 (109) Pulse Ox 96 95 96 95 O2 Delivery Room Air 04/15/17 04/15/17 04/15/17 04/15/17 15:00 15:13 16:45 19:25 Temp 97.5 98.2 97.5 98.2 Pulse 68 77 Resp 19 16 16 B/P (MAP) 189/70 (109) 158/49 (85) Pulse Ox 95 97 O2 Delivery Room Air Room Air Room Air Room Air 04/15/17 04/15/17 04/15/17 04/15/17 20:15 21:00 21:32 23:25 Temp 97.7 97.7 Pulse 77 74 Resp 16 B/P (MAP) 158/49 175/70 (105) Pulse Ox 97 96 O2 Delivery Room Air Room Air Room Air 04/16/17 04/16/17 04/16/17 03:25 07:10 07:41 Temp 97.6 97.7 97.6 97.7 Pulse 75 87 Resp 16 18 B/P (MAP) 179/63 (101) 153/71 (98) Pulse Ox 97 96 O2 Delivery Room Air Room Air Room Air Intake and Output 04/15/17 04/15/17 04/16/17 15:00 23:00 07:00 Intake Total 0 ml 0 ml Balance 0 ml 0 ml MARYJANE ANDREWS III DO Apr 16, 2017 11:02
[2017-04-16 11:20] VITALS: BP 159/67
--- NOTE | 2017-04-16 12:28 | PDOC ---
PROGRESS NOTES Subjective Subjective consult cancelled by Dr Gtz Objective Objective Vital Signs Date Time Temp Pulse Resp B/P (MAP) Pulse Ox O2 Delivery O2 Flow Rate FiO2 04/16/17 11:20 97.6 86 18 159/67 (97) 95 Room Air 97.6 Intake and Output 04/16/17 07:00 Intake Total 0 ml Balance 0 ml Intake Oral 0 ml # Voids 4 Assessment Assessment Problems Medical Problems: (1) Atrial fibrillation Status: Acute (2) Dehydration Status: Acute (3) Electrolyte abnormality Status: Acute (4) Stroke Status: Acute Comment Review of Relevant I have reviewed the following items zaheer (where applicable) has been applied. Labs Laboratory Tests Test 04/15/17 10:55 04/15/17 11:55 04/15/17 14:04 04/15/17 16:27 White Blood Count 6.0 x10^3/uL (4.0-11.0) Red Blood Count 4.48 x10^6/uL (3.50-5.40) Hemoglobin 13.2 g/dL (12.0-15.5) Hematocrit 40.8 % (36.0-47.0) Mean Corpuscular Volume 91 fL (79-100) Mean Corpuscular Hemoglobin 29 pg (25-35) Mean Corpuscular Hemoglobin Concent 32 g/dL (31-37) Red Cell Distribution Width 14.3 % (11.5-14.5) Platelet Count 143 x10^3/uL (140-400) Neutrophils (%) (Auto) 71 % (31-73) Lymphocytes (%) (Auto) 17 % (24-48) Monocytes (%) (Auto) 8 % (0-9) Eosinophils (%) (Auto) 3 % (0-3) Basophils (%) (Auto) 1 % (0-3) Neutrophils # (Auto) 4.3 x10^3uL (1.8-7.7) Lymphocytes # (Auto) 1.1 x10^3/uL (1.0-4.8) Monocytes # (Auto) 0.5 x10^3/uL (0.0-1.1) Eosinophils # (Auto) 0.2 x10^3/uL (0.0-0.7) Basophils # (Auto) 0.1 x10^3/uL (0.0-0.2) Prothrombin Time 13.6 SEC (11.7-14.0) Prothromb Time International Ratio 1.1 (0.8-1.1) Sodium Level 144 mmol/L (136-145) Potassium Level 5.2 mmol/L (3.5-5.1) Chloride Level 104 mmol/L (98-107) Carbon Dioxide Level 32 mmol/L (21-32) Anion Gap 8 (6-14) Blood Urea Nitrogen 31 mg/dL (7-20) Creatinine 1.1 mg/dL (0.6-1.0) Estimated GFR (Cockcroft-Gault) 48.0 BUN/Creatinine Ratio 28 (6-20) Glucose Level 280 mg/dL (70-99) Calcium Level 8.8 mg/dL (8.5-10.1) Magnesium Level 1.6 mg/dL (1.8-2.4) Total Bilirubin 0.2 mg/dL (0.2-1.0) Aspartate Amino Transf (AST/SGOT) 13 U/L (15-37) Alanine Aminotransferase (ALT/SGPT) 18 U/L (14-59) Alkaline Phosphatase 84 U/L (46-116) Troponin I Quantitative < 0.017 ng/mL (0.000-0.055) W[place]-Lpa-K-Type Natriuretic Peptide 619 pg/mL (0-449) Total Protein 7.2 g/dL (6.4-8.2) Albumin 3.2 g/dL (3.4-5.0) Albumin/Globulin Ratio 0.8 (1.0-1.7) Urine Collection Type U cath Urine Color Yellow Urine Clarity Cloudy Urine pH 6.0 Urine Specific [place] 1.015 Urine Protein 100 mg/dL (NEG-TRACE) Urine Glucose (UA) Negative mg/dL (NEG) Urine Ketones (Stick) Negative mg/dL (NEG) Urine Blood Small (NEG) Urine Nitrite Negative (NEG) Urine Bilirubin Negative (NEG) Urine Urobilinogen Dipstick 0.2 mg/dL (0.2 mg/dL) Urine Leukocyte Esterase Large (NEG) Urine RBC Fobs /HPF (0-2) Urine WBC Tntc /HPF (0-4) Urine Renal Epithelial Cells Few /LPF Urine Bacteria Many /HPF (0-FEW) Urine Mucus Slight /LPF Nasal Screen MRSA (PCR) Negative (Negative) Glucose (Fingerstick) 184 mg/dL (70-99) Test 04/15/17 21:27 04/16/17 03:15 04/16/17 07:06 04/16/17 11:16 Glucose (Fingerstick) 179 mg/dL (70-99) 285 mg/dL (70-99) 243 mg/dL (70-99) White Blood Count 6.0 x10^3/uL (4.0-11.0) Red Blood Count 4.42 x10^6/uL (3.50-5.40) Hemoglobin 13.0 g/dL (12.0-15.5) Hematocrit 40.4 % (36.0-47.0) Mean Corpuscular Volume 92 fL (79-100) Mean Corpuscular Hemoglobin 29 pg (25-35) Mean Corpuscular Hemoglobin Concent 32 g/dL (31-37) Red Cell Distribution Width 14.0 % (11.5-14.5) Platelet Count 137 x10^3/uL (140-400) Neutrophils (%) (Auto) 67 % (31-73) Lymphocytes (%) (Auto) 33 % (24-48) Monocytes (%) (Auto) 0 % (0-9) Eosinophils (%) (Auto) 0 % (0-3) Basophils (%) (Auto) 0 % (0-3) Neutrophils # (Auto) 4.0 x10^3uL (1.8-7.7) Lymphocytes # (Auto) 2.0 x10^3/uL (1.0-4.8) Monocytes # (Auto) 0.0 x10^3/uL (0.0-1.1) Eosinophils # (Auto) 0.0 x10^3/uL (0.0-0.7) Basophils # (Auto) 0.0 x10^3/uL (0.0-0.2) Sodium Level 142 mmol/L (136-145) Potassium Level 4.0 mmol/L (3.5-5.1) Chloride Level 104 mmol/L (98-107) Carbon Dioxide Level 26 mmol/L (21-32) Anion Gap 12 (6-14) Blood Urea Nitrogen 22 mg/dL (7-20) Creatinine 0.9 mg/dL (0.6-1.0) Estimated GFR (Cockcroft-Gault) 60.6 BUN/Creatinine Ratio 24 (6-20) Glucose Level 226 mg/dL (70-99) Calcium Level 8.8 mg/dL (8.5-10.1) Total Bilirubin 0.3 mg/dL (0.2-1.0) Aspartate Amino Transf (AST/SGOT) 9 U/L (15-37) Alanine Aminotransferase (ALT/SGPT) 16 U/L (14-59) Alkaline Phosphatase 73 U/L (46-116) Total Protein 7.3 g/dL (6.4-8.2) Albumin 3.1 g/dL (3.4-5.0) Albumin/Globulin Ratio 0.7 (1.0-1.7) Triglycerides Level 523 mg/dL (0-150) Cholesterol Level 233 mg/dL (0-200) LDL Cholesterol, Calculated mg/dL (0-100) VLDL Cholesterol, Calculated 105 mg/dL (0-40) Non-HDL Cholesterol Calculated 202 mg/dL (0-129) HDL Cholesterol 31 mg/dL (40-60) Cholesterol/HDL Ratio 7.5 Laboratory Tests Test 04/15/17 14:04 04/15/17 16:27 04/15/17 21:27 04/16/17 03:15 Nasal Screen MRSA (PCR) Negative (Negative) Glucose (Fingerstick) 184 mg/dL (70-99) 179 mg/dL (70-99) White Blood Count 6.0 x10^3/uL (4.0-11.0) Red Blood Count 4.42 x10^6/uL (3.50-5.40) Hemoglobin 13.0 g/dL (12.0-15.5) Hematocrit 40.4 % (36.0-47.0) Mean Corpuscular Volume 92 fL (79-100) Mean Corpuscular Hemoglobin 29 pg (25-35) Mean Corpuscular Hemoglobin Concent 32 g/dL (31-37) Red Cell Distribution Width 14.0 % (11.5-14.5) Platelet Count 137 x10^3/uL (140-400) Neutrophils (%) (Auto) 67 % (31-73) Lymphocytes (%) (Auto) 33 % (24-48) Monocytes (%) (Auto) 0 % (0-9) Eosinophils (%) (Auto) 0 % (0-3) Basophils (%) (Auto) 0 % (0-3) Neutrophils # (Auto) 4.0 x10^3uL (1.8-7.7) Lymphocytes # (Auto) 2.0 x10^3/uL (1.0-4.8) Monocytes # (Auto) 0.0 x10^3/uL (0.0-1.1) Eosinophils # (Auto) 0.0 x10^3/uL (0.0-0.7) Basophils # (Auto) 0.0 x10^3/uL (0.0-0.2) Sodium Level 142 mmol/L (136-145) Potassium Level 4.0 mmol/L (3.5-5.1) Chloride Level 104 mmol/L (98-107) Carbon Dioxide Level 26 mmol/L (21-32) Anion Gap 12 (6-14) Blood Urea Nitrogen 22 mg/dL (7-20) Creatinine 0.9 mg/dL (0.6-1.0) Estimated GFR (Cockcroft-Gault) 60.6 BUN/Creatinine Ratio 24 (6-20) Glucose Level 226 mg/dL (70-99) Calcium Level 8.8 mg/dL (8.5-10.1) Total Bilirubin 0.3 mg/dL (0.2-1.0) Aspartate Amino Transf (AST/SGOT) 9 U/L (15-37) Alanine Aminotransferase (ALT/SGPT) 16 U/L (14-59) Alkaline Phosphatase 73 U/L (46-116) Total Protein 7.3 g/dL (6.4-8.2) Albumin 3.1 g/dL (3.4-5.0) Albumin/Globulin Ratio 0.7 (1.0-1.7) Triglycerides Level 523 mg/dL (0-150) Cholesterol Level 233 mg/dL (0-200) LDL Cholesterol, Calculated mg/dL (0-100) VLDL Cholesterol, Calculated 105 mg/dL (0-40) Non-HDL Cholesterol Calculated 202 mg/dL (0-129) HDL Cholesterol 31 mg/dL (40-60) Cholesterol/HDL Ratio 7.5 Test 04/16/17 07:06 04/16/17 11:16 Glucose (Fingerstick) 285 mg/dL (70-99) 243 mg/dL (70-99) Medications Current Medications Sodium Chloride 500 ml @ 500 mls/hr 1X ONCE IV Last administered on 13:09; Start 04/15/17 at 12:45; Stop 04/15/17 at 13:44; Status DC Magnesium Sulfate/ Dextrose 100 ml @ 100 mls/hr 1X ONCE IV Last administered on 04/15/17 13:08; Start 04/15/17 at 12:45; Stop 04/15/17 at 13:44; Status DC Magnesium Sulfate/ Dextrose 100 ml @ 100 mls/hr 1X ONCE IV Last administered on 04/15/17 16:29; Start 04/15/17 at 13:45; Stop 04/15/17 at 14:44; Status DC Enoxaparin Sodium (Lovenox 40mg Syringe) 40 mg Q24H SQ Last administered on 16:40; Start 04/15/17 at 15:00 Labetalol HCl 200 mg/Sodium Chloride 190 ml @ 10 mls/hr CONT PRN PRN IV PER PROTOCOL; Start 04/15/17 at 14:45; Stop 04/15/17 at 14:45; Status DC Simvastatin (Zocor) 10 mg QHS PO ; Start 04/15/17 at 21:00; Stop 04/16/17 at 08:55; Status DC Acetaminophen (Tylenol) 650 mg PRN Q6HRS PRN PO TEMP > 100.4F; Start 04/15/17 at 14:45 Acetaminophen (Acetaminophen Supp) 650 mg PRN Q4HRS PRN WI TEMP > 100.4F; Start 04/15/17 at 14:45 Aspirin (Dwayne Aspirin) 325 mg DAILYWBKFT PO ; Start 04/15/17 at 15:00; Stop 04/15/17 at 15:02; Status DC Labetalol HCl 400 mg/Miscellaneous 160 ml @ 48 mls/hr CONT PRN IV SEE I/O RECORD; Start 04/15/17 at 14:45 Amlodipine Besylate (Norvasc) 10 mg BID PO ; Start 04/15/17 at 21:00 Throat Lozenges (Cepacol Sore Throat Lozenge) 1 nicolette PRN Q1HR PRN MM SORE THROAT ; Start 04/15/17 at 15:00 Bisacodyl (Dulcolax Supp) 10 mg PRN DAILY PRN RC CONSTIPATION; Start 04/15/17 at 15:00 Buspirone HCl (Buspar) 10 mg TID PO ; Start 04/15/17 at 21:00 Calcium Carbonate/ Glycine (Oscal) 500 mg PRN Q6HRS PRN PO INDIGESTION; Start 04/15/17 at 15:00 Carvedilol (Coreg) 12.5 mg BIDWMEALS PO ; Start 04/15/17 at 17:00 Clopidogrel Bisulfate (Plavix) 75 mg DAILY PO ; Start 04/16/17 at 09:00 Cyclobenzaprine HCl (Flexeril) 10 mg BID PO ; Start 04/15/17 at 21:00 Diphenhydramine HCl (Benadryl) 25 mg PRN Q8HRS PRN PO IT; Start 04/15/17 at 15 :00 Fentanyl (Duragesic 12mcg/ Hr Patch) 1 patch Q72H TD Last administered on 04/15 16:45; Start 04/15/17 at 15:00 Ferrous Sulfate (Feosol) 325 mg TIDWMEALS PO ; Start 04/15/17 at 17:00 Furosemide (Lasix) 40 mg BID92 PO ; Start 04/15/17 at 16:00 Insulin Detemir (Levemir) 15 units QHS SQ ; Start 04/15/17 at 21:00 Insulin Detemir (Levemir) 25 units DAILYWBKFT SQ Last administered on 08:08; Start 04/16/17 at 08:00 Letrozole (Femara) 2.5 mg DAILY PO ; Start 04/16/17 at 09:00 Levothyroxine Sodium (Synthroid) 25 mcg DAILY07 PO ; Start 04/16/17 at 09:00 Lorazepam (Ativan) 1 mg DAILY PO ; Start 04/16/17 at 09:00 Lorazepam (Ativan) 1 mg PRN Q6HRS PRN PO ANXIETY; Start 04/15/17 at 15:00 Mirtazapine (Remeron) 22.5 mg HS PO ; Start 04/15/17 at 21:00 Nitroglycerin (Nitro-Dur 0.6mg) 1 patch DAILY TD Last administered on 08:02; Start 04/16/17 at 09:00 Nystatin (Nystop) 1 judy PRN Q72HRS PRN TP REDNESS; Start 04/15/17 at 15:00 Oxycodone/ Acetaminophen (Percocet 5/325) 2 tab PRN Q4HRS PRN PO PAIN; Start 04/15/17 at 15:00 Prochlorperazine (Compazine) 12.5 mg PRN Q4HRS PRN RC TULIO; Start 04/15/17 at 15:00 Senna/Docusate Sodium (Senna Plus) 1 tab DAILY PO ; Start 04/16/17 at 09:00 Insulin Aspart (NovoLOG) 16 units QIDACHS SQ Last administered on 04/16/17 11 :38; Start 04/15/17 at 16:30 Multivitamins (Thera M Plus) 1 tab DAILY PO ; Start 04/16/17 at 09:00 Pantoprazole Sodium (Protonix) 40 mg DAILYAC PO ; Start 04/16/17 at 07:30 Artificial Tears (Artificial Tears) 2 drop QID OU Last administered on 08:00; Start 04/15/17 at 16:00 Venlafaxine HCl (Effexor Xr) 75 mg DAILY PO ; Start 04/16/17 at 09:00 Al Hydroxide/Mg Hydroxide (Mylanta Plus Xs) 30 ml PRN Q3HRS PRN PO HEARTBURN / GAS; Start 04/15/17 at 16:00 Aspirin (Ecotrin) 81 mg DAILYWBKFT PO ; Start 04/16/17 at 08:00 Magnesium Oxide (Magnesium Oxide) 400 mg DAILY PO ; Start 04/16/17 at 09:00 Potassium Chloride (Klor-Con) 20 meq DAILYWBKFT PO ; Start 04/16/17 at 08:00 Hydralazine HCl (Apresoline Inj) 10 mg PRN Q4HRS PRN IVP ELEVATED BP, SEE COMMENTS; Start 04/15/17 at 16:45 Sodium Chloride 1,000 ml @ 30 mls/hr Q24H IV Last administered on 04/15/17 18:34; Start 04/15/17 at 17:15; Stop 04/16/17 at 12:25; Status DC Simvastatin (Zocor) 20 mg HS PO ; Start 04/16/17 at 21:00 Iohexol (Omnipaque 300 Mg/ml) 75 ml 1X ONCE IV ; Start 04/16/17 at 09:15; Stop 04/16/17 at 09:16; Status DC Info (Do NOT chart on this entry -- for MONITORING) 1 each PRN DAILY PRN MC SEE COMMENTS; Start 04/16/17 at 09:15; Stop 04/18/17 at 09:14 Active Scripts Active FENTANYL 12mcg/hr (Fentanyl) 1 Each Patch.td72 1 Each TD Q72H Percocet 5-325 Mg Tablet (Oxycodone/Acetaminophen) 1 Each Tablet 2 Tab PO PRN Q4HRS PRN Levemir Flextouch (Insulin Detemir) 100 Unit/1 Ml Insuln.pen 15 Units SQ QHS 30 Days Levemir Flextouch (Insulin Detemir) 100 Unit/1 Ml Insuln.pen 25 Units SQ DAILYWBKFT 30 Days Carvedilol 12.5 Mg Tablet 12.5 Mg PO BIDWMEALS 30 Days Reported Magnesium Oxide 400 Mg Tablet 1 Tab PO DAILY Potassium Chloride 20 Meq Tablet.er 20 Meq PO DAILY Femara (Letrozole) 2.5 Mg Tablet 2.5 Mg PO DAILY Systane Ultra 0.4-0.3% Eye Drp (Propylene Glycol/Peg 400) 10 Ml Drops 2 Drop OP QID Senna Plus Tablet (Sennosides/Docusate Sodium) 1 Each Tablet 1 Each PO DAILY Nystatin 15 Gm Powder 1 Judy TP PRN Q72HRS PRN APPLY TO ABDOMEN PRN REDNESS Novolog (Insulin Aspart) 100 Unit/1 Ml Cartridge 16 Unit SQ ACHS Feosol (Ferrous Sulfate) 325 Mg Tablet 325 Mg PO TID Effexor Xr (Venlafaxine Hcl) 75 Mg Cap.er.24h 75 Mg PO DAILY Benadryl (Diphenhydramine Hcl) 25 Mg Capsule 25 Mg PO PRN Q8HRS PRN Ativan (Lorazepam) 1 Mg Tablet 1 Mg PO PRN Q6HRS PRN Furosemide 40 Mg Tablet 40 Mg PO BID Buspirone Hcl 10 Mg Tablet 10 Mg PO TID Remeron (Mirtazapine) 15 Mg Tablet 22.5 Mg PO HS [Mylanta] 30 Ml PO PRN Q3HRS PRN Multivitamins (Multivitamin) 1 Each Capsule 1 Each PO DAILY Compazine (Prochlorperazine Maleate) 25 Mg Supp.rect 10 Mg RC PRN Q4HRS PRN Cepacol Sore Throat Lozenge (Benzocaine/Menthol) 1 Each Lozenge 1 Each MM PRN Q1HR PRN Calcium Carbonate 500 Mg Tablet 500 Mg PO PRN Q6HRS PRN Bisacodyl 10 Mg Supp.rect 10 Mg RC PRN DAILY PRN Ativan (Lorazepam) 1 Mg Tablet 1 Mg PO DAILY EVERY E,ESTEFANÍA,SAT FOR ANXIETY ,GIVE 1/2 HR.BEFORE DIALYSIS Amlodipine Besylate 5 Mg Tablet 10 Mg PO BID Pantoprazole Sodium 20 Mg Tablet.dr 40 Mg PO DAILY NITRO-DUR 0.6mg/hr (Nitroglycerin) 1 Each Patch.td24 1 Each TD DAILY Levothyroxine Sodium 25 Mcg Tablet 25 Mcg PO DAILY Cyclobenzaprine Hcl 10 Mg Tablet 10 Mg PO BID Clopidogrel (Clopidogrel Bisulfate) 75 Mg Tablet 75 Mg PO DAILY Vitals/I & O Vital Sign - Last 24 Hours 04/15/17 04/15/17 04/15/17 04/15/17 12:51 14:59 15:00 15:13 Temp 97.5 97.5 97.5 97.5 Pulse 64 68 68 Resp 12 19 19 B/P (MAP) 189/70 (109) 189/70 (109) Pulse Ox 96 95 95 O2 Delivery Room Air Room Air Room Air 04/15/17 04/15/17 04/15/17 04/15/17 16:45 19:25 20:15 21:00 Temp 98.2 98.2 Pulse 77 77 Resp 16 16 B/P (MAP) 158/49 (85) 158/49 Pulse Ox 97 O2 Delivery Room Air Room Air Room Air 04/15/17 04/15/17 04/16/17 04/16/17 21:32 23:25 03:25 07:10 Temp 97.7 97.6 97.7 97.7 97.6 97.7 Pulse 74 75 87 Resp 16 16 18 B/P (MAP) 175/70 (105) 179/63 (101) 153/71 (98) Pulse Ox 97 96 97 96 O2 Delivery Room Air Room Air Room Air Room Air 04/16/17 04/16/17 07:41 11:20 Temp 97.6 97.6 Pulse 86 Resp 18 B/P (MAP) 159/67 (97) Pulse Ox 95 O2 Delivery Room Air Room Air Intake and Output 04/15/17 04/15/17 04/16/17 15:00 23:00 07:00 Intake Total 0 ml 0 ml Balance 0 ml 0 ml DOROTA YO MD Apr 16, 2017 12:28
[2017-04-16] MEDS: ENOXAPARIN 40 MG/0.4 ML SYRINGE. SQ SCH (14:05)
--- NOTE | 2017-04-16 16:17 | RAD ---
CTA of the head and neck with contrast, 04/16/2017: History: Stroke Multidetector CT imaging was performed following an IV bolus injection of iodinated contrast material. Multiplanar reconstructions were produced including coronal and sagittal MIP images. There is calcific plaquing of the aortic arch. The origins of the cervicocephalic arteries from the aortic arch are widely patent. The common carotid arteries in the neck are widely patent. There is moderate calcific plaquing at both carotid bifurcations. This is causing only approximately 30% diameter narrowing of the proximal internal carotid arteries bilaterally. The internal carotid arteries in the upper neck are widely patent. There is moderate calcific plaquing involving the cavernous segments of both distal internal carotid arteries. There is moderately severe focal narrowing of the left distal internal carotid artery in its cavernous segment, as seen on axial image 800 of series #4. No high-grade stenosis is seen in the distal right internal carotid artery. The anterior cerebral and middle cerebral arteries and their major branches are unremarkable. No aneurysm is evident. Both vertebral arteries in the neck are patent with only minimal calcific plaquing distally. The basilar and posterior cerebral arteries are unremarkable. Incidental note is made of small bilateral pleural effusions. IMPRESSION: 1. Moderate calcific plaquing at both carotid bifurcations with mild narrowing of the proximal internal carotid arteries bilaterally. 2. Moderate calcific plaquing involving the cavernous segments of both distal internal carotid arteries with moderately severe focal narrowing at this level on the left. 3. No other significant stenosis or occlusion is identified involving the major intracranial arteries. Note: Stenosis calculations for CTA, MRA and conventional angiography are based upon determination of the distal ICA diameter in accordance with the NASCET methodology. Stenosis calculations for Doppler studies are derived from validated velocity criteria which are known to correlate with NASCET methodology of determining stenosis. PQRS Compliance Statement: One or more of the following individualized dose reduction techniques were utilized for this examination: 1. Automated exposure control 2. Adjustment of the mA and/or kV according to patient size 3. Use of iterative reconstruction technique
--- NOTE | 2017-04-16 16:57 | CARD ---
MR#: [id number] Date of Study: 04/16/2017 Ordering Physician: BENJAMÍN HEBERT, Referring Physician: Jean Pierre FONTAINE: Dolores Morrow [facility] APPROVED REPORT EXAM: Two-dimensional and M-mode echocardiogram with Doppler and color Doppler. Other Information Quality : Fair INDICATION CVA/TIA 2D DIMENSIONS Left Atrium(2D)3.3 (1.6-4.0cm)IVSd1.7 (0.7-1.1cm) Aortic Root(2D)2.9 (2.0-3.7cm)LVDd3.2 (3.9-5.9cm) LVOT Diameter1.8 (1.8-2.4cm)PWd1.6 (0.7-1.1cm) LVDs2.3 (2.5-4.0cm)FS (%) 28.4 % SV22.3 mlLVEF(%)56.2 (>50%) Aortic Valve AoV Peak Jonathon.1.6cm/sAoV VTI23.0cm AO Peak GR.6.2mmHgLVOT Peak Jonathon.0.7cm/s LVOT VTI 15.60cmAO Mean GR.258mmHg THERESA (VTI)1.70cm2 Mitral Valve MV E Velocity1.4cm/sMV E Peak Gr.9mmHg MV DECEL [id number] A Mbiziwpt17.5cm/s MV E Mean Gr.5mmHgE/A Ratio0.0 MVA Planimetry1.30cm2 TDI Lateral E' P. V7.10cm/sMedial E' P. V6.31cm/s E/Lateral E'0.2E/Medial E'0.2 Tricuspid Valve RAP [id number] LEFT VENTRICLE The left ventricle is normal size. There is mild to moderate concentric left ventricular hypertrophy. Hyperdynamic left ventricular function present. The Ejection Fraction is >70%. There is normal LV se gmental wall motion. RIGHT VENTRICLE The right ventricle is normal size. The right ventricular systolic function is normal. ATRIA The left atrium size is normal. The right atrium size is normal. The interatrial septum is intact wit h no evidence for an atrial septal defect or patent foramen ovale as noted on 2-D or Doppler imaging. AORTIC VALVE The aortic valve is calcified but opens well. Doppler and Color Flow revealed no significant aortic r egurgitation. There is no significant aortic valvular stenosis. MITRAL VALVE The mitral valve is mild to moderately thickened. There is no evidence of mitral valve prolapse. Ther e is mild to moderate mitral valve stenosis. Calculated mitral valve area is 1.4 cm2 with maximum pre ssure gradient of mmHg and mean pressure gradient of 5 mmHg. Doppler and Color-flow revealed trace to mild mitral regurgitation. TRICUSPID VALVE The tricuspid valve is normal in structure and function. Doppler and Color Flow revealed trace tricus pid regurgitation. There is no tricuspid valve prolapse or vegetation. There is no tricuspid valve st enosis. PULMONIC VALVE The pulmonary valve is normal in structure and function. Doppler and Color Flow revealed no pulmonic valvular regurgitation. There is no pulmonic valvular stenosis. GREAT VESSELS The aortic root is normal in size. The ascending aorta is normal in size. The IVC is normal in size a nd collapses >50% with inspiration. PERICARDIAL EFFUSION There is no pleural effusion. There is no evidence of significant pericardial effusion. Critical Notification Critical Value: No <Conclusion> The left ventricle is normal size. Hyperdynamic left ventricular function present. The Ejection Fraction is >70%. There is mild to moderate concentric left ventricular hypertrophy. There is no significant aortic valvular stenosis. Doppler and Color Flow revealed no significant aortic regurgitation. Doppler and Color-flow revealed trace to mild mitral regurgitation. There is mild to moderate mitral valve stenosis. Calculated mitral valve area is 1.4 cm2 with maximum pressure gradient of mmHg and mean pressure gra dient of 5 mmHg. Doppler and Color Flow revealed trace tricuspid regurgitation. Signed by : Michelet Harper MD Electronically Approved : 04/16/2017 16:56:57
[2017-04-16 19:35] VITALS: BP 142/68
[2017-04-16] MEDS ORDERED: SIMVASTATIN 20 MG TABLET PO SCH (21:00)
[2017-04-16] MEDS: MIRTAZAPINE 15 MG TABLET PO SCH (21:56)
[2017-04-16 23:19] VITALS: BP 114/51
[2017-04-17 03:26] VITALS: BP 109/49
[2017-04-17 04:41] LABS: BASO % 1 % (0-3); EOS % 2 % (0-3); HEMATOCRIT 38.7 % (36.0-47.0); HEMOGLOBIN 12.7 g/dL (12.0-15.5); LYMPH # 1.5 x10^3/uL (1.0-4.8); LYMPH % 26 % (24-48); MEAN CORPUSCULAR HEMOGLOBIN 30 pg (25-35); MEAN CORPUSCULAR HGB CONC 33 g/dL (31-37); MEAN CORPUSCULAR VOLUME 91 fL (79-100); MONO % 11 % (0-9); NEUT % 61 % (31-73); PLATELET COUNT 159 x10^3/uL (140-400); RED BLOOD COUNT 4.28 x10^6/uL (3.50-5.40); RED CELL DISTRIBUTION WIDTH 14.2 % (11.5-14.5); WHITE BLOOD COUNT 5.8 x10^3/uL (4.0-11.0)
[2017-04-17 05:36] LABS: ALBUMIN 2.8 g/dL (3.4-5.0); ALBUMIN/GLOBULIN RATIO 0.7 (1.0-1.7); CALCIUM 8.4 mg/dL (8.5-10.1); CREATININE 1.1 mg/dL (0.6-1.0); POTASSIUM 3.6 mmol/L (3.5-5.1); TOTAL BILIRUBIN 0.2 mg/dL (0.2-1.0)
[2017-04-17] MEDS: LEVOTHYROXINE 25 MCG TABLET. PO SCH (06:22)
[2017-04-17 07:00] VITALS: BP 113/47
[2017-04-17] MEDS: PANTOPRAZOLE 40 MG TABLET.DR. PO SCH (07:30)
[2017-04-17] MEDS: INSULIN ASPART 300 UNITS/3 ML INSULN.PEN SQ SCH ×2 (07:30→12:46)
[2017-04-17] MEDS: POTASSIUM CHLORIDE 20 MEQ TABLET.ER. PO SCH (08:00)
[2017-04-17] MEDS: CARVEDILOL 12.5 MG TABLET. PO SCH (08:00)
[2017-04-17] MEDS: ASPIRIN ENTERIC COATED 81 MG TABLET.DR. PO SCH (08:00)
[2017-04-17] MEDS: FERROUS SULFATE 325 MG TABLET. PO SCH ×2 (08:00→12:42)
[2017-04-17] MEDS: INSULIN DETEMIR 300 UNITS/3 ML INSULN.PEN. SQ SCH (08:00)
[2017-04-17] MEDS: VENLAFAXINE XR 37.5 MG CAP.ER.24H. PO SCH (08:54)
[2017-04-17] MEDS: POLYVINYL ALCOHOL 1.4% OPHTH SOLUTION 15ML BOTTLE. OU SCH ×2 (08:54→12:46)
[2017-04-17] MEDS: busPIRone 10 MG TABLET. PO SCH ×2 (08:54→14:00)
[2017-04-17] MEDS: LORazepam 1 MG TABLET PO SCH (08:54)
[2017-04-17] MEDS: LETROZOLE 2.5 MG TABLET. PO SCH (08:54)
[2017-04-17] MEDS: MULTIVITAMIN with MINERAL TABLET. PO SCH (08:55)
[2017-04-17] MEDS: FUROSEMIDE 40 MG TABLET. PO SCH ×2 (08:55→14:00)
[2017-04-17] MEDS: NITROGLYCERIN 0.6MG/HR PATCH. TD SCH (08:55)
[2017-04-17] MEDS: MAGNESIUM OXIDE 400 MG TABLET PO SCH (08:55)
[2017-04-17] MEDS: CYCLOBENZAPRINE 10 MG TABLET. PO SCH (08:55)
[2017-04-17] MEDS: SENNOSIDES/DOCUSATE 8.6/50MG TABLET. PO SCH (08:55)
[2017-04-17] MEDS: CLOPIDOGREL BISULFATE 75 MG TABLET PO SCH (08:55)
[2017-04-17] MEDS: amLODIPine BESYLATE 10 MG TABLET PO SCH (08:56)
--- NOTE | 2017-04-17 09:24 | PDOC ---
PROGRESS NOTES Chief Complaint Chief Complaint CVA Dehydration Afib HTN HLD DM2 CKD History of Present Illness History of Present Illness Patient urine culture demonstrated gram - rods and so we're starting levaquin. Her head and neck CTA showed the results listed below. She had an echo completed which demonstrated an EF >70%. Okay to d/c back to her facility when okay with subspecialists. IMPRESSION: 1. Moderate calcific plaquing at both carotid bifurcations with mild narrowing of the proximal internal carotid arteries bilaterally. 2. Moderate calcific plaquing involving the cavernous segments of both distal internal carotid arteries with moderately severe focal narrowing at this level on the left. 3. No other significant stenosis or occlusion is identified involving the major intracranial arteries. Vitals Vitals Vital Signs Date Time Temp Pulse Resp B/P (MAP) Pulse Ox O2 Delivery O2 Flow Rate FiO2 04/17/17 08:56 55 113/47 04/17/17 07:00 97.8 18 97 Room Air 97.8 Physical Exam General: Alert, Oriented X3, Cooperative, No acute distress Heart: Normal S1, Normal S2, Other (2/6 systolic murmur,. IRR; tele AFIB with controlled ventricular rate ) Lungs: Clear Abdomen: Soft, Other (obese) Extremities: No edema Skin: No breakdown, No significant lesion Labs LABS Laboratory Tests Test 04/16/17 11:16 04/16/17 16:05 04/16/17 21:03 04/17/17 03:05 Glucose (Fingerstick) 243 mg/dL (70-99) 155 mg/dL (70-99) 186 mg/dL (70-99) White Blood Count 5.8 x10^3/uL (4.0-11.0) Red Blood Count 4.28 x10^6/uL (3.50-5.40) Hemoglobin 12.7 g/dL (12.0-15.5) Hematocrit 38.7 % (36.0-47.0) Mean Corpuscular Volume 91 fL (79-100) Mean Corpuscular Hemoglobin 30 pg (25-35) Mean Corpuscular Hemoglobin Concent 33 g/dL (31-37) Red Cell Distribution Width 14.2 % (11.5-14.5) Platelet Count 159 x10^3/uL (140-400) Neutrophils (%) (Auto) 61 % (31-73) Lymphocytes (%) (Auto) 26 % (24-48) Monocytes (%) (Auto) 11 % (0-9) Eosinophils (%) (Auto) 2 % (0-3) Basophils (%) (Auto) 1 % (0-3) Neutrophils # (Auto) 3.5 x10^3uL (1.8-7.7) Lymphocytes # (Auto) 1.5 x10^3/uL (1.0-4.8) Monocytes # (Auto) 0.6 x10^3/uL (0.0-1.1) Eosinophils # (Auto) 0.1 x10^3/uL (0.0-0.7) Basophils # (Auto) 0.0 x10^3/uL (0.0-0.2) Sodium Level 145 mmol/L (136-145) Potassium Level 3.6 mmol/L (3.5-5.1) Chloride Level 106 mmol/L (98-107) Carbon Dioxide Level 28 mmol/L (21-32) Anion Gap 11 (6-14) Blood Urea Nitrogen 21 mg/dL (7-20) Creatinine 1.1 mg/dL (0.6-1.0) Estimated GFR (Cockcroft-Gault) 48.0 BUN/Creatinine Ratio 19 (6-20) Glucose Level 112 mg/dL (70-99) Calcium Level 8.4 mg/dL (8.5-10.1) Total Bilirubin 0.2 mg/dL (0.2-1.0) Aspartate Amino Transf (AST/SGOT) 8 U/L (15-37) Alanine Aminotransferase (ALT/SGPT) 12 U/L (14-59) Alkaline Phosphatase 64 U/L (46-116) Total Protein 7.0 g/dL (6.4-8.2) Albumin 2.8 g/dL (3.4-5.0) Albumin/Globulin Ratio 0.7 (1.0-1.7) Test 04/17/17 07:23 Glucose (Fingerstick) 161 mg/dL (70-99) Review of Systems Review of Systems Patient reports feeling better Patient denies confusion Assessment and Plan Assessmemt and Plan Problems Medical Problems: (1) Atrial fibrillation Status: Acute (2) Dehydration Status: Acute (3) Electrolyte abnormality Status: Acute (4) Stroke Status: Acute Assessment: CVA Dehydration Afib HTN HLD DM2 CKD Plan: Home meds Reviewed labs and imaging Recheck labs Start levaquin 250mg QD x7d Anticoagulation per cardio PT/OT Appreciate subspecialist input Okay to d/c when determined by subspecialists Problems: Comment Review of Relevant I have reviewed the following items zaheer (where applicable) has been applied. Labs Laboratory Tests Test 04/15/17 10:55 04/15/17 11:55 04/15/17 14:04 04/15/17 16:27 White Blood Count 6.0 x10^3/uL (4.0-11.0) Red Blood Count 4.48 x10^6/uL (3.50-5.40) Hemoglobin 13.2 g/dL (12.0-15.5) Hematocrit 40.8 % (36.0-47.0) Mean Corpuscular Volume 91 fL (79-100) Mean Corpuscular Hemoglobin 29 pg (25-35) Mean Corpuscular Hemoglobin Concent 32 g/dL (31-37) Red Cell Distribution Width 14.3 % (11.5-14.5) Platelet Count 143 x10^3/uL (140-400) Neutrophils (%) (Auto) 71 % (31-73) Lymphocytes (%) (Auto) 17 % (24-48) Monocytes (%) (Auto) 8 % (0-9) Eosinophils (%) (Auto) 3 % (0-3) Basophils (%) (Auto) 1 % (0-3) Neutrophils # (Auto) 4.3 x10^3uL (1.8-7.7) Lymphocytes # (Auto) 1.1 x10^3/uL (1.0-4.8) Monocytes # (Auto) 0.5 x10^3/uL (0.0-1.1) Eosinophils # (Auto) 0.2 x10^3/uL (0.0-0.7) Basophils # (Auto) 0.1 x10^3/uL (0.0-0.2) Prothrombin Time 13.6 SEC (11.7-14.0) Prothromb Time International Ratio 1.1 (0.8-1.1) Sodium Level 144 mmol/L (136-145) Potassium Level 5.2 mmol/L (3.5-5.1) Chloride Level 104 mmol/L (98-107) Carbon Dioxide Level 32 mmol/L (21-32) Anion Gap 8 (6-14) Blood Urea Nitrogen 31 mg/dL (7-20) Creatinine 1.1 mg/dL (0.6-1.0) Estimated GFR (Cockcroft-Gault) 48.0 BUN/Creatinine Ratio 28 (6-20) Glucose Level 280 mg/dL (70-99) Calcium Level 8.8 mg/dL (8.5-10.1) Magnesium Level 1.6 mg/dL (1.8-2.4) Total Bilirubin 0.2 mg/dL (0.2-1.0) Aspartate Amino Transf (AST/SGOT) 13 U/L (15-37) Alanine Aminotransferase (ALT/SGPT) 18 U/L (14-59) Alkaline Phosphatase 84 U/L (46-116) Troponin I Quantitative < 0.017 ng/mL (0.000-0.055) DF-Iho-A-Type Natriuretic Peptide 619 pg/mL (0-449) Total Protein 7.2 g/dL (6.4-8.2) Albumin 3.2 g/dL (3.4-5.0) Albumin/Globulin Ratio 0.8 (1.0-1.7) Urine Collection Type U cath Urine Color Yellow Urine Clarity Cloudy Urine pH 6.0 Urine Specific [place] 1.015 Urine Protein 100 mg/dL (NEG-TRACE) Urine Glucose (UA) Negative mg/dL (NEG) Urine Ketones (Stick) Negative mg/dL (NEG) Urine Blood Small (NEG) Urine Nitrite Negative (NEG) Urine Bilirubin Negative (NEG) Urine Urobilinogen Dipstick 0.2 mg/dL (0.2 mg/dL) Urine Leukocyte Esterase Large (NEG) Urine RBC Fobs /HPF (0-2) Urine WBC Tntc /HPF (0-4) Urine Renal Epithelial Cells Few /LPF Urine Bacteria Many /HPF (0-FEW) Urine Mucus Slight /LPF Nasal Screen MRSA (PCR) Negative (Negative) Glucose (Fingerstick) 184 mg/dL (70-99) Test 04/15/17 21:27 04/16/17 03:15 04/16/17 07:06 04/16/17 11:16 Glucose (Fingerstick) 179 mg/dL (70-99) 285 mg/dL (70-99) 243 mg/dL (70-99) White Blood Count 6.0 x10^3/uL (4.0-11.0) Red Blood Count 4.42 x10^6/uL (3.50-5.40) Hemoglobin 13.0 g/dL (12.0-15.5) Hematocrit 40.4 % (36.0-47.0) Mean Corpuscular Volume 92 fL (79-100) Mean Corpuscular Hemoglobin 29 pg (25-35) Mean Corpuscular Hemoglobin Concent 32 g/dL (31-37) Red Cell Distribution Width 14.0 % (11.5-14.5) Platelet Count 137 x10^3/uL (140-400) Neutrophils (%) (Auto) 67 % (31-73) Lymphocytes (%) (Auto) 33 % (24-48) Monocytes (%) (Auto) 0 % (0-9) Eosinophils (%) (Auto) 0 % (0-3) Basophils (%) (Auto) 0 % (0-3) Neutrophils # (Auto) 4.0 x10^3uL (1.8-7.7) Lymphocytes # (Auto) 2.0 x10^3/uL (1.0-4.8) Monocytes # (Auto) 0.0 x10^3/uL (0.0-1.1) Eosinophils # (Auto) 0.0 x10^3/uL (0.0-0.7) Basophils # (Auto) 0.0 x10^3/uL (0.0-0.2) Sodium Level 142 mmol/L (136-145) Potassium Level 4.0 mmol/L (3.5-5.1) Chloride Level 104 mmol/L (98-107) Carbon Dioxide Level 26 mmol/L (21-32) Anion Gap 12 (6-14) Blood Urea Nitrogen 22 mg/dL (7-20) Creatinine 0.9 mg/dL (0.6-1.0) Estimated GFR (Cockcroft-Gault) 60.6 BUN/Creatinine Ratio 24 (6-20) Glucose Level 226 mg/dL (70-99) Calcium Level 8.8 mg/dL (8.5-10.1) Total Bilirubin 0.3 mg/dL (0.2-1.0) Aspartate Amino Transf (AST/SGOT) 9 U/L (15-37) Alanine Aminotransferase (ALT/SGPT) 16 U/L (14-59) Alkaline Phosphatase 73 U/L (46-116) Total Protein 7.3 g/dL (6.4-8.2) Albumin 3.1 g/dL (3.4-5.0) Albumin/Globulin Ratio 0.7 (1.0-1.7) Triglycerides Level 523 mg/dL (0-150) Cholesterol Level 233 mg/dL (0-200) LDL Cholesterol, Calculated mg/dL (0-100) VLDL Cholesterol, Calculated 105 mg/dL (0-40) Non-HDL Cholesterol Calculated 202 mg/dL (0-129) HDL Cholesterol 31 mg/dL (40-60) Cholesterol/HDL Ratio 7.5 Test 04/16/17 16:05 04/16/17 21:03 04/17/17 03:05 04/17/17 07:23 Glucose (Fingerstick) 155 mg/dL (70-99) 186 mg/dL (70-99) 161 mg/dL (70-99) White Blood Count 5.8 x10^3/uL (4.0-11.0) Red Blood Count 4.28 x10^6/uL (3.50-5.40) Hemoglobin 12.7 g/dL (12.0-15.5) Hematocrit 38.7 % (36.0-47.0) Mean Corpuscular Volume 91 fL (79-100) Mean Corpuscular Hemoglobin 30 pg (25-35) Mean Corpuscular Hemoglobin Concent 33 g/dL (31-37) Red Cell Distribution Width 14.2 % (11.5-14.5) Platelet Count 159 x10^3/uL (140-400) Neutrophils (%) (Auto) 61 % (31-73) Lymphocytes (%) (Auto) 26 % (24-48) Monocytes (%) (Auto) 11 % (0-9) Eosinophils (%) (Auto) 2 % (0-3) Basophils (%) (Auto) 1 % (0-3) Neutrophils # (Auto) 3.5 x10^3uL (1.8-7.7) Lymphocytes # (Auto) 1.5 x10^3/uL (1.0-4.8) Monocytes # (Auto) 0.6 x10^3/uL (0.0-1.1) Eosinophils # (Auto) 0.1 x10^3/uL (0.0-0.7) Basophils # (Auto) 0.0 x10^3/uL (0.0-0.2) Sodium Level 145 mmol/L (136-145) Potassium Level 3.6 mmol/L (3.5-5.1) Chloride Level 106 mmol/L (98-107) Carbon Dioxide Level 28 mmol/L (21-32) Anion Gap 11 (6-14) Blood Urea Nitrogen 21 mg/dL (7-20) Creatinine 1.1 mg/dL (0.6-1.0) Estimated GFR (Cockcroft-Gault) 48.0 BUN/Creatinine Ratio 19 (6-20) Glucose Level 112 mg/dL (70-99) Calcium Level 8.4 mg/dL (8.5-10.1) Total Bilirubin 0.2 mg/dL (0.2-1.0) Aspartate Amino Transf (AST/SGOT) 8 U/L (15-37) Alanine Aminotransferase (ALT/SGPT) 12 U/L (14-59) Alkaline Phosphatase 64 U/L (46-116) Total Protein 7.0 g/dL (6.4-8.2) Albumin 2.8 g/dL (3.4-5.0) Albumin/Globulin Ratio 0.7 (1.0-1.7) Laboratory Tests Test 04/16/17 11:16 04/16/17 16:05 04/16/17 21:03 04/17/17 03:05 Glucose (Fingerstick) 243 mg/dL (70-99) 155 mg/dL (70-99) 186 mg/dL (70-99) White Blood Count 5.8 x10^3/uL (4.0-11.0) Red Blood Count 4.28 x10^6/uL (3.50-5.40) Hemoglobin 12.7 g/dL (12.0-15.5) Hematocrit 38.7 % (36.0-47.0) Mean Corpuscular Volume 91 fL (79-100) Mean Corpuscular Hemoglobin 30 pg (25-35) Mean Corpuscular Hemoglobin Concent 33 g/dL (31-37) Red Cell Distribution Width 14.2 % (11.5-14.5) Platelet Count 159 x10^3/uL (140-400) Neutrophils (%) (Auto) 61 % (31-73) Lymphocytes (%) (Auto) 26 % (24-48) Monocytes (%) (Auto) 11 % (0-9) Eosinophils (%) (Auto) 2 % (0-3) Basophils (%) (Auto) 1 % (0-3) Neutrophils # (Auto) 3.5 x10^3uL (1.8-7.7) Lymphocytes # (Auto) 1.5 x10^3/uL (1.0-4.8) Monocytes # (Auto) 0.6 x10^3/uL (0.0-1.1) Eosinophils # (Auto) 0.1 x10^3/uL (0.0-0.7) Basophils # (Auto) 0.0 x10^3/uL (0.0-0.2) Sodium Level 145 mmol/L (136-145) Potassium Level 3.6 mmol/L (3.5-5.1) Chloride Level 106 mmol/L (98-107) Carbon Dioxide Level 28 mmol/L (21-32) Anion Gap 11 (6-14) Blood Urea Nitrogen 21 mg/dL (7-20) Creatinine 1.1 mg/dL (0.6-1.0) Estimated GFR (Cockcroft-Gault) 48.0 BUN/Creatinine Ratio 19 (6-20) Glucose Level 112 mg/dL (70-99) Calcium Level 8.4 mg/dL (8.5-10.1) Total Bilirubin 0.2 mg/dL (0.2-1.0) Aspartate Amino Transf (AST/SGOT) 8 U/L (15-37) Alanine Aminotransferase (ALT/SGPT) 12 U/L (14-59) Alkaline Phosphatase 64 U/L (46-116) Total Protein 7.0 g/dL (6.4-8.2) Albumin 2.8 g/dL (3.4-5.0) Albumin/Globulin Ratio 0.7 (1.0-1.7) Test 04/17/17 07:23 Glucose (Fingerstick) 161 mg/dL (70-99) Microbiology 04/15/17 Urine Culture - Preliminary, Resulted 04/15/17 Urine Culture Result 1 (KATHERINE) - Preliminary, Resulted Medications Current Medications Sodium Chloride 500 ml @ 500 mls/hr 1X ONCE IV Last administered on 13:09; Start 04/15/17 at 12:45; Stop 04/15/17 at 13:44; Status DC Magnesium Sulfate/ Dextrose 100 ml @ 100 mls/hr 1X ONCE IV Last administered on 04/15/17 13:08; Start 04/15/17 at 12:45; Stop 04/15/17 at 13:44; Status DC Magnesium Sulfate/ Dextrose 100 ml @ 100 mls/hr 1X ONCE IV Last administered on 04/15/17 16:29; Start 04/15/17 at 13:45; Stop 04/15/17 at 14:44; Status DC Enoxaparin Sodium (Lovenox 40mg Syringe) 40 mg Q24H SQ Last administered on 14:05; Start 04/15/17 at 15:00 Labetalol HCl 200 mg/Sodium Chloride 190 ml @ 10 mls/hr CONT PRN PRN IV PER PROTOCOL; Start 04/15/17 at 14:45; Stop 04/15/17 at 14:45; Status DC Simvastatin (Zocor) 10 mg QHS PO ; Start 04/15/17 at 21:00; Stop 04/16/17 at 08:55; Status DC Acetaminophen (Tylenol) 650 mg PRN Q6HRS PRN PO TEMP > 100.4F; Start 04/15/17 at 14:45 Acetaminophen (Acetaminophen Supp) 650 mg PRN Q4HRS PRN NE TEMP > 100.4F; Start 04/15/17 at 14:45 Aspirin (Dwayne Aspirin) 325 mg DAILYWBKFT PO ; Start 04/15/17 at 15:00; Stop 04/15/17 at 15:02; Status DC Labetalol HCl 400 mg/Miscellaneous 160 ml @ 48 mls/hr CONT PRN IV SEE I/O RECORD; Start 04/15/17 at 14:45 Amlodipine Besylate (Norvasc) 10 mg BID PO Last administered on 04/17/17 08: 56; Start 04/15/17 at 21:00 Throat Lozenges (Cepacol Sore Throat Lozenge) 1 nicolette PRN Q1HR PRN MM SORE THROAT ; Start 04/15/17 at 15:00 Bisacodyl (Dulcolax Supp) 10 mg PRN DAILY PRN RC CONSTIPATION; Start 04/15/17 at 15:00 Buspirone HCl (Buspar) 10 mg TID PO Last administered on 04/17/17 08:54; Start 04/15/17 at 21:00 Calcium Carbonate/ Glycine (Oscal) 500 mg PRN Q6HRS PRN PO INDIGESTION; Start 04/15/17 at 15:00 Carvedilol (Coreg) 12.5 mg BIDWMEALS PO Last administered on 04/17/17 08:00; Start 04/15/17 at 17:00 Clopidogrel Bisulfate (Plavix) 75 mg DAILY PO Last administered on 04/17/17 08:55; Start 04/16/17 at 09:00 Cyclobenzaprine HCl (Flexeril) 10 mg BID PO Last administered on 04/17/17 08: 55; Start 04/15/17 at 21:00 Diphenhydramine HCl (Benadryl) 25 mg PRN Q8HRS PRN PO IT; Start 04/15/17 at 15 :00 Fentanyl (Duragesic 12mcg/ Hr Patch) 1 patch Q72H TD Last administered on 04/15 16:45; Start 04/15/17 at 15:00 Ferrous Sulfate (Feosol) 325 mg TIDWMEALS PO Last administered on 04/17/17 08 :00; Start 04/15/17 at 17:00 Furosemide (Lasix) 40 mg BID92 PO Last administered on 04/17/17 08:55; Start 04/15/17 at 16:00 Insulin Detemir (Levemir) 15 units QHS SQ Last administered on 04/16/17 21:53 ; Start 04/15/17 at 21:00 Insulin Detemir (Levemir) 25 units DAILYWBKFT SQ Last administered on 08:00; Start 04/16/17 at 08:00 Letrozole (Femara) 2.5 mg DAILY PO Last administered on 04/17/17 08:54; Start 04/16/17 at 09:00 Levothyroxine Sodium (Synthroid) 25 mcg DAILY07 PO Last administered on 06:22; Start 04/16/17 at 09:00 Lorazepam (Ativan) 1 mg DAILY PO Last administered on 04/17/17 08:54; Start 04/16/17 at 09:00 Lorazepam (Ativan) 1 mg PRN Q6HRS PRN PO ANXIETY; Start 04/15/17 at 15:00 Mirtazapine (Remeron) 22.5 mg HS PO Last administered on 04/16/17 21:56; Start 04/15/17 at 21:00 Nitroglycerin (Nitro-Dur 0.6mg) 1 patch DAILY TD Last administered on 08:55; Start 04/16/17 at 09:00 Nystatin (Nystop) 1 judy PRN Q72HRS PRN TP REDNESS; Start 04/15/17 at 15:00 Oxycodone/ Acetaminophen (Percocet 5/325) 2 tab PRN Q4HRS PRN PO PAIN Last administered on 04/16/17 21:54; Start 04/15/17 at 15:00 Prochlorperazine (Compazine) 12.5 mg PRN Q4HRS PRN RC TULIO; Start 04/15/17 at 15:00 Senna/Docusate Sodium (Senna Plus) 1 tab DAILY PO Last administered on 08:55; Start 04/16/17 at 09:00 Insulin Aspart (NovoLOG) 16 units QIDACHS SQ Last administered on 04/17/17 07 :30; Start 04/15/17 at 16:30 Multivitamins (Thera M Plus) 1 tab DAILY PO Last administered on 04/17/17 08: 55; Start 04/16/17 at 09:00 Pantoprazole Sodium (Protonix) 40 mg DAILYAC PO Last administered on 07:30; Start 04/16/17 at 07:30 Artificial Tears (Artificial Tears) 2 drop QID OU Last administered on 08:54; Start 04/15/17 at 16:00 Venlafaxine HCl (Effexor Xr) 75 mg DAILY PO Last administered on 04/17/17 08: 54; Start 04/16/17 at 09:00 Al Hydroxide/Mg Hydroxide (Mylanta Plus Xs) 30 ml PRN Q3HRS PRN PO HEARTBURN / GAS; Start 04/15/17 at 16:00 Aspirin (Ecotrin) 81 mg DAILYWBKFT PO Last administered on 04/17/17 08:00; Start 04/16/17 at 08:00 Magnesium Oxide (Magnesium Oxide) 400 mg DAILY PO Last administered on 08:55; Start 04/16/17 at 09:00 Potassium Chloride (Klor-Con) 20 meq DAILYWBKFT PO Last administered on 08:00; Start 04/16/17 at 08:00 Hydralazine HCl (Apresoline Inj) 10 mg PRN Q4HRS PRN IVP ELEVATED BP, SEE COMMENTS; Start 04/15/17 at 16:45 Sodium Chloride 1,000 ml @ 30 mls/hr Q24H IV Last administered on 04/15/17 18:34; Start 04/15/17 at 17:15; Stop 04/16/17 at 12:25; Status DC Simvastatin (Zocor) 20 mg HS PO Last administered on 04/16/17 21:00; Start 04/16/17 at 21:00 Iohexol (Omnipaque 300 Mg/ml) 75 ml 1X ONCE IV ; Start 04/16/17 at 09:15; Stop 04/16/17 at 09:16; Status DC Info (Do NOT chart on this entry -- for MONITORING) 1 each PRN DAILY PRN MC SEE COMMENTS; Start 04/16/17 at 09:15; Stop 04/18/17 at 09:14 Active Scripts Active FENTANYL 12mcg/hr (Fentanyl) 1 Each Patch.td72 1 Each TD Q72H Percocet 5-325 Mg Tablet (Oxycodone/Acetaminophen) 1 Each Tablet 2 Tab PO PRN Q4HRS PRN Levemir Flextouch (Insulin Detemir) 100 Unit/1 Ml Insuln.pen 15 Units SQ QHS 30 Days Levemir Flextouch (Insulin Detemir) 100 Unit/1 Ml Insuln.pen 25 Units SQ DAILYWBKFT 30 Days Carvedilol 12.5 Mg Tablet 12.5 Mg PO BIDWMEALS 30 Days Reported Magnesium Oxide 400 Mg Tablet 1 Tab PO DAILY Potassium Chloride 20 Meq Tablet.er 20 Meq PO DAILY Femara (Letrozole) 2.5 Mg Tablet 2.5 Mg PO DAILY Systane Ultra 0.4-0.3% Eye Drp (Propylene Glycol/Peg 400) 10 Ml Drops 2 Drop OP QID Senna Plus Tablet (Sennosides/Docusate Sodium) 1 Each Tablet 1 Each PO DAILY Nystatin 15 Gm Powder 1 Judy TP PRN Q72HRS PRN APPLY TO ABDOMEN PRN REDNESS Novolog (Insulin Aspart) 100 Unit/1 Ml Cartridge 16 Unit SQ ACHS Feosol (Ferrous Sulfate) 325 Mg Tablet 325 Mg PO TID Effexor Xr (Venlafaxine Hcl) 75 Mg Cap.er.24h 75 Mg PO DAILY Benadryl (Diphenhydramine Hcl) 25 Mg Capsule 25 Mg PO PRN Q8HRS PRN Ativan (Lorazepam) 1 Mg Tablet 1 Mg PO PRN Q6HRS PRN Furosemide 40 Mg Tablet 40 Mg PO BID Buspirone Hcl 10 Mg Tablet 10 Mg PO TID Remeron (Mirtazapine) 15 Mg Tablet 22.5 Mg PO HS [Mylanta] 30 Ml PO PRN Q3HRS PRN Multivitamins (Multivitamin) 1 Each Capsule 1 Each PO DAILY Compazine (Prochlorperazine Maleate) 25 Mg Supp.rect 10 Mg RC PRN Q4HRS PRN Cepacol Sore Throat Lozenge (Benzocaine/Menthol) 1 Each Lozenge 1 Each MM PRN Q1HR PRN Calcium Carbonate 500 Mg Tablet 500 Mg PO PRN Q6HRS PRN Bisacodyl 10 Mg Supp.rect 10 Mg RC PRN DAILY PRN Ativan (Lorazepam) 1 Mg Tablet 1 Mg PO DAILY EVERY E,ESTEFANÍA,SAT FOR ANXIETY ,GIVE 1/2 HR.BEFORE DIALYSIS Amlodipine Besylate 5 Mg Tablet 10 Mg PO BID Pantoprazole Sodium 20 Mg Tablet.dr 40 Mg PO DAILY NITRO-DUR 0.6mg/hr (Nitroglycerin) 1 Each Patch.td24 1 Each TD DAILY Levothyroxine Sodium 25 Mcg Tablet 25 Mcg PO DAILY Cyclobenzaprine Hcl 10 Mg Tablet 10 Mg PO BID Clopidogrel (Clopidogrel Bisulfate) 75 Mg Tablet 75 Mg PO DAILY Vitals/I & O Vital Sign - Last 24 Hours 04/16/17 04/16/17 04/16/17 04/16/17 11:20 16:09 19:35 20:15 Temp 97.6 98.3 97.6 98.3 Pulse 86 87 74 Resp 18 18 B/P (MAP) 159/67 (97) 144/71 142/68 (92) Pulse Ox 95 94 O2 Delivery Room Air Room Air Room Air 04/16/17 04/16/17 04/16/17 04/16/17 21:54 21:55 22:53 23:19 Temp 98.1 98.1 Pulse 74 77 Resp 18 B/P (MAP) 142/68 114/51 (72) Pulse Ox 94 94 96 O2 Delivery Room Air Room Air Room Air 04/17/17 04/17/17 04/17/17 04/17/17 03:26 07:00 08:00 08:56 Temp 98.5 97.8 98.5 97.8 Pulse 52 55 55 55 Resp 18 18 B/P (MAP) 109/49 (69) 113/47 (69) 113/47 113/47 Pulse Ox 94 97 O2 Delivery Room Air Room Air Intake and Output 04/16/17 04/16/17 04/17/17 15:00 23:00 07:00 Intake Total 0 ml 640 ml Balance 0 ml 640 ml MARYJANE ANDREWS III DO Apr 17, 2017 09:24
[2017-04-17 11:00] VITALS: BP 127/57
--- NOTE | 2017-04-17 14:33 | PDOC ---
CARDIOLOGY PROGRESS NOTE SUBJECTIVE: Late entry for 04/16/2017 No acute events overnight. Denies any chest pain. OBJECTIVE: Vital SIgns: Vital Signs Date Time Temp Pulse Resp B/P (MAP) Pulse Ox O2 Delivery O2 Flow Rate FiO2 04/17/17 11:00 97.6 63 16 127/57 (80) 97 Room Air 97.6 I & O Intake and Output 04/17/17 07:00 Intake Total 640 ml Balance 640 ml Intake Oral 640 ml # Voids 7 # Bowel Movements 3 Objective: Alert and oriented. Irr heart rhythm bilateral rhonchi no edema. soft abd. CURRENT MEDICATIONS: Current Medications Medications (Trade) Dose Ordered Sig/Darlene Start Time Stop Time Status Last Admin Dose Admin Acetaminophen (Acetaminophen Supp) 650 mg PRN Q4HRS PRN 04/15/17 14:45 Acetaminophen (Tylenol) 650 mg PRN Q6HRS PRN 04/15/17 14:45 Al Hydroxide/Mg Hydroxide (Mylanta Plus Xs) 30 ml PRN Q3HRS PRN 04/15/17 16:00 Amlodipine Besylate (Norvasc) 10 mg BID 04/15/17 21:00 04/17/17 08:56 10 MG Apixaban (Eliquis) 5 mg BID 04/17/17 21:00 Artificial Tears (Artificial Tears) 2 drop QID 04/15/17 16:00 04/17/17 12:46 2 DROP Aspirin (Dwayne Aspirin) 325 mg DAILYWBKFT 04/15/17 15:00 04/15/17 15:02 DC Aspirin (Ecotrin) 81 mg DAILYWBKFT 04/16/17 08:00 04/17/17 14:19 DC 04/17/17 08:00 81 MG Bisacodyl (Dulcolax Supp) 10 mg PRN DAILY PRN 04/15/17 15:00 Buspirone HCl (Buspar) 10 mg TID 04/15/17 21:00 04/17/17 08:54 10 MG Calcium Carbonate/ Glycine (Oscal) 500 mg PRN Q6HRS PRN 04/15/17 15:00 Carvedilol (Coreg) 12.5 mg BIDWMEALS 04/15/17 17:00 04/17/17 08:00 12.5 MG Clopidogrel Bisulfate (Plavix) 75 mg DAILY 04/16/17 09:00 04/17/17 12:37 DC 04/17/17 08:55 75 MG Cyclobenzaprine HCl (Flexeril) 10 mg BID 04/15/17 21:00 04/17/17 08:55 10 MG Diphenhydramine HCl (Benadryl) 25 mg PRN Q8HRS PRN 04/15/17 15:00 Enoxaparin Sodium (Lovenox 40mg Syringe) 40 mg Q24H 04/15/17 15:00 04/16/17 14:05 40 MG Fentanyl (Duragesic 12mcg/ Hr Patch) 1 patch Q72H 04/15/17 15:00 04/15/17 16:45 1 PATCH Ferrous Sulfate (Feosol) 325 mg TIDWMEALS 04/15/17 17:00 04/17/17 12:42 325 MG Furosemide (Lasix) 40 mg [id number] 04/15/17 16:00 04/17/17 08:55 40 MG Hydralazine HCl (Apresoline Inj) 10 mg PRN Q4HRS PRN 04/15/17 16:45 Info (Do NOT chart on this entry -- for MONITORING) 1 each PRN DAILY PRN 04/16/17 09:15 04/18/17 09:14 Insulin Aspart (NovoLOG) 16 units QIDACHS 04/15/17 16:30 04/17/17 12:46 16 UNITS Insulin Detemir (Levemir) 25 units DAILYWBKFT 04/16/17 08:00 04/17/17 08:00 25 UNITS Iohexol (Omnipaque 300 Mg/ml) 75 ml 1X ONCE 04/16/17 09:15 04/16/17 09:16 DC Labetalol HCl 200 mg/Sodium Chloride 190 ml @ 10 mls/hr CONT PRN PRN 04/15/17 14:45 04/15/17 14:45 DC Labetalol HCl 400 mg/Miscellaneous 160 ml @ 48 mls/hr CONT PRN 04/15/17 14:45 Lactobacillus Rhamnosus (Culturelle) 1 cap BID 04/17/17 21:00 Letrozole (Femara) 2.5 mg DAILY 04/16/17 09:00 04/17/17 08:54 2.5 MG Levofloxacin (Levaquin) 250 mg DAILY 04/17/17 09:00 04/25/17 08:59 04/17/17 12:42 250 MG Levothyroxine Sodium (Synthroid) 25 mcg DAILY07 04/16/17 09:00 04/17/17 06:22 25 MCG Lorazepam (Ativan) 1 mg PRN Q6HRS PRN 04/15/17 15:00 Magnesium Oxide (Magnesium Oxide) 400 mg DAILY 04/16/17 09:00 04/17/17 08:55 400 MG Magnesium Sulfate/ Dextrose 100 ml @ 100 mls/hr 1X ONCE 04/15/17 13:45 04/15/17 14:44 DC 04/15/17 16:29 100 MLS/HR Mirtazapine (Remeron) 22.5 mg HS 04/15/17 21:00 04/16/17 21:56 22.5 MG Multivitamins (Thera M Plus) 1 tab DAILY 04/16/17 09:00 04/17/17 08:55 1 TAB Nitroglycerin (Nitro-Dur 0.6mg) 1 patch DAILY 04/16/17 09:00 04/17/17 08:55 1 PATCH Nystatin (Nystop) 1 sherif PRN Q72HRS PRN 04/15/17 15:00 Oxycodone/ Acetaminophen (Percocet 5/325) 2 tab PRN Q4HRS PRN 04/15/17 15:00 04/16/17 21:54 2 TAB Pantoprazole Sodium (Protonix) 40 mg DAILYAC 04/16/17 07:30 04/17/17 07:30 40 MG Potassium Chloride (Klor-Con) 20 meq DAILYWBKFT 04/16/17 08:00 04/17/17 08:00 20 MEQ Prochlorperazine (Compazine) 12.5 mg PRN Q4HRS PRN 04/15/17 15:00 Senna/Docusate Sodium (Senna Plus) 1 tab DAILY 04/16/17 09:00 04/17/17 08:55 1 TAB Simvastatin (Zocor) 20 mg HS 04/16/17 21:00 04/16/17 21:00 20 MG Sodium Chloride 1,000 ml @ 30 mls/hr Q24H 04/15/17 17:15 04/16/17 12:25 DC 04/15/17 18:34 30 MLS/HR Throat Lozenges (Cepacol Sore Throat Lozenge) 1 nicolette PRN Q1HR PRN 04/15/17 15:00 Venlafaxine HCl (Effexor Xr) 75 mg DAILY 04/16/17 09:00 04/17/17 08:54 75 MG ASSESSMENT: 1. CVA in the setting of afib. Problems: PLAN: 1. Reviewed Dr. Saleem notes 2. Plan to stop Plavix, start Eliquis 5mg bid. continue asa. Risk factor mgmt. 3. Discussed extensively with patient on 04/16 and 04/17 about risks/benefits and alternatives to anticoagulation. She understands and wishes to proceed. ALYSHA GILBERT MD Apr 17, 2017 14:33
--- NOTE | 2017-04-17 15:00 | PDOC ---
PROGRESS NOTES Assessment Problems Medical Problems: (1) Atrial fibrillation Status: Acute (2) Dehydration Status: Acute (3) Electrolyte abnormality Status: Acute (4) Stroke Status: Acute Acute central and ventral pontine infarcts Possible small right frontal acute lacunar infarct. Chronic microvascular disease, doubt multiple sclerosis. Prior right hemispheric lacunar stroke with left hemiparesis Aarachnoid cyst at the left cerebellopontine angle Right AKA Severe hyperlipidemia Atrial fibrillation, distribution of infarcts is more consistent with small vessel disease. Also has intracranial atherosclerotic disease as noted on CT angiogram Plan Rehabilitation modalities Eliquis started, will discontinue aspirin, Plavix already discontinued I increased the statin dose Okay to return to long-term Follow-up with me as needed Subjective No complaints, wants to go home Objective Vital Signs Date Time Temp Pulse Resp B/P (MAP) Pulse Ox O2 Delivery O2 Flow Rate FiO2 04/17/17 11:00 97.6 63 16 127/57 (80) 97 Room Air 97.6 Intake and Output 04/17/17 07:00 Intake Total 640 ml Balance 640 ml Intake Oral 640 ml # Voids 7 # Bowel Movements 3 PHYSICAL EXAM Alert. Oriented to time, place and person. PERRL. EOMI. CN: no focal findings. Muscle tone: normal. Muscle strength: 4/5 on left, 3/5 right arm, 4-/5 right leg DTR: 2+ Plantar reflex: flexor on left Gait: not examined in bed. Sensory exam: no abnormal findings. No cerebellar signs elicited. Review of Relevant I have reviewed the following items zaheer (where applicable) has been applied. Labs Laboratory Tests Test 04/15/17 16:27 04/15/17 21:27 04/16/17 03:15 04/16/17 07:06 Glucose (Fingerstick) 184 mg/dL (70-99) 179 mg/dL (70-99) 285 mg/dL (70-99) White Blood Count 6.0 x10^3/uL (4.0-11.0) Red Blood Count 4.42 x10^6/uL (3.50-5.40) Hemoglobin 13.0 g/dL (12.0-15.5) Hematocrit 40.4 % (36.0-47.0) Mean Corpuscular Volume 92 fL (79-100) Mean Corpuscular Hemoglobin 29 pg (25-35) Mean Corpuscular Hemoglobin Concent 32 g/dL (31-37) Red Cell Distribution Width 14.0 % (11.5-14.5) Platelet Count 137 x10^3/uL (140-400) Neutrophils (%) (Auto) 67 % (31-73) Lymphocytes (%) (Auto) 33 % (24-48) Monocytes (%) (Auto) 0 % (0-9) Eosinophils (%) (Auto) 0 % (0-3) Basophils (%) (Auto) 0 % (0-3) Neutrophils # (Auto) 4.0 x10^3uL (1.8-7.7) Lymphocytes # (Auto) 2.0 x10^3/uL (1.0-4.8) Monocytes # (Auto) 0.0 x10^3/uL (0.0-1.1) Eosinophils # (Auto) 0.0 x10^3/uL (0.0-0.7) Basophils # (Auto) 0.0 x10^3/uL (0.0-0.2) Sodium Level 142 mmol/L (136-145) Potassium Level 4.0 mmol/L (3.5-5.1) Chloride Level 104 mmol/L (98-107) Carbon Dioxide Level 26 mmol/L (21-32) Anion Gap 12 (6-14) Blood Urea Nitrogen 22 mg/dL (7-20) Creatinine 0.9 mg/dL (0.6-1.0) Estimated GFR (Cockcroft-Gault) 60.6 BUN/Creatinine Ratio 24 (6-20) Glucose Level 226 mg/dL (70-99) Calcium Level 8.8 mg/dL (8.5-10.1) Total Bilirubin 0.3 mg/dL (0.2-1.0) Aspartate Amino Transf (AST/SGOT) 9 U/L (15-37) Alanine Aminotransferase (ALT/SGPT) 16 U/L (14-59) Alkaline Phosphatase 73 U/L (46-116) Total Protein 7.3 g/dL (6.4-8.2) Albumin 3.1 g/dL (3.4-5.0) Albumin/Globulin Ratio 0.7 (1.0-1.7) Triglycerides Level 523 mg/dL (0-150) Cholesterol Level 233 mg/dL (0-200) LDL Cholesterol, Calculated mg/dL (0-100) VLDL Cholesterol, Calculated 105 mg/dL (0-40) Non-HDL Cholesterol Calculated 202 mg/dL (0-129) HDL Cholesterol 31 mg/dL (40-60) Cholesterol/HDL Ratio 7.5 Test 04/16/17 11:16 04/16/17 16:05 04/16/17 21:03 04/17/17 03:05 Glucose (Fingerstick) 243 mg/dL (70-99) 155 mg/dL (70-99) 186 mg/dL (70-99) White Blood Count 5.8 x10^3/uL (4.0-11.0) Red Blood Count 4.28 x10^6/uL (3.50-5.40) Hemoglobin 12.7 g/dL (12.0-15.5) Hematocrit 38.7 % (36.0-47.0) Mean Corpuscular Volume 91 fL (79-100) Mean Corpuscular Hemoglobin 30 pg (25-35) Mean Corpuscular Hemoglobin Concent 33 g/dL (31-37) Red Cell Distribution Width 14.2 % (11.5-14.5) Platelet Count 159 x10^3/uL (140-400) Neutrophils (%) (Auto) 61 % (31-73) Lymphocytes (%) (Auto) 26 % (24-48) Monocytes (%) (Auto) 11 % (0-9) Eosinophils (%) (Auto) 2 % (0-3) Basophils (%) (Auto) 1 % (0-3) Neutrophils # (Auto) 3.5 x10^3uL (1.8-7.7) Lymphocytes # (Auto) 1.5 x10^3/uL (1.0-4.8) Monocytes # (Auto) 0.6 x10^3/uL (0.0-1.1) Eosinophils # (Auto) 0.1 x10^3/uL (0.0-0.7) Basophils # (Auto) 0.0 x10^3/uL (0.0-0.2) Sodium Level 145 mmol/L (136-145) Potassium Level 3.6 mmol/L (3.5-5.1) Chloride Level 106 mmol/L (98-107) Carbon Dioxide Level 28 mmol/L (21-32) Anion Gap 11 (6-14) Blood Urea Nitrogen 21 mg/dL (7-20) Creatinine 1.1 mg/dL (0.6-1.0) Estimated GFR (Cockcroft-Gault) 48.0 BUN/Creatinine Ratio 19 (6-20) Glucose Level 112 mg/dL (70-99) Calcium Level 8.4 mg/dL (8.5-10.1) Total Bilirubin 0.2 mg/dL (0.2-1.0) Aspartate Amino Transf (AST/SGOT) 8 U/L (15-37) Alanine Aminotransferase (ALT/SGPT) 12 U/L (14-59) Alkaline Phosphatase 64 U/L (46-116) Total Protein 7.0 g/dL (6.4-8.2) Albumin 2.8 g/dL (3.4-5.0) Albumin/Globulin Ratio 0.7 (1.0-1.7) Test 04/17/17 07:23 04/17/17 12:28 Glucose (Fingerstick) 161 mg/dL (70-99) 168 mg/dL (70-99) Laboratory Tests Test 04/16/17 16:05 04/16/17 21:03 04/17/17 03:05 04/17/17 07:23 Glucose (Fingerstick) 155 mg/dL (70-99) 186 mg/dL (70-99) 161 mg/dL (70-99) White Blood Count 5.8 x10^3/uL (4.0-11.0) Red Blood Count 4.28 x10^6/uL (3.50-5.40) Hemoglobin 12.7 g/dL (12.0-15.5) Hematocrit 38.7 % (36.0-47.0) Mean Corpuscular Volume 91 fL (79-100) Mean Corpuscular Hemoglobin 30 pg (25-35) Mean Corpuscular Hemoglobin Concent 33 g/dL (31-37) Red Cell Distribution Width 14.2 % (11.5-14.5) Platelet Count 159 x10^3/uL (140-400) Neutrophils (%) (Auto) 61 % (31-73) Lymphocytes (%) (Auto) 26 % (24-48) Monocytes (%) (Auto) 11 % (0-9) Eosinophils (%) (Auto) 2 % (0-3) Basophils (%) (Auto) 1 % (0-3) Neutrophils # (Auto) 3.5 x10^3uL (1.8-7.7) Lymphocytes # (Auto) 1.5 x10^3/uL (1.0-4.8) Monocytes # (Auto) 0.6 x10^3/uL (0.0-1.1) Eosinophils # (Auto) 0.1 x10^3/uL (0.0-0.7) Basophils # (Auto) 0.0 x10^3/uL (0.0-0.2) Sodium Level 145 mmol/L (136-145) Potassium Level 3.6 mmol/L (3.5-5.1) Chloride Level 106 mmol/L (98-107) Carbon Dioxide Level 28 mmol/L (21-32) Anion Gap 11 (6-14) Blood Urea Nitrogen 21 mg/dL (7-20) Creatinine 1.1 mg/dL (0.6-1.0) Estimated GFR (Cockcroft-Gault) 48.0 BUN/Creatinine Ratio 19 (6-20) Glucose Level 112 mg/dL (70-99) Calcium Level 8.4 mg/dL (8.5-10.1) Total Bilirubin 0.2 mg/dL (0.2-1.0) Aspartate Amino Transf (AST/SGOT) 8 U/L (15-37) Alanine Aminotransferase (ALT/SGPT) 12 U/L (14-59) Alkaline Phosphatase 64 U/L (46-116) Total Protein 7.0 g/dL (6.4-8.2) Albumin 2.8 g/dL (3.4-5.0) Albumin/Globulin Ratio 0.7 (1.0-1.7) Test 04/17/17 12:28 Glucose (Fingerstick) 168 mg/dL (70-99) Microbiology 04/15/17 Urine Culture - Preliminary, Resulted 04/15/17 Urine Culture Result 1 (KATHERINE) - Preliminary, Resulted Medications Current Medications Sodium Chloride 500 ml @ 500 mls/hr 1X ONCE IV Last administered on t 13:09; Start 04/15/17 at 12:45; Stop 04/15/17 at 13:44; Status DC Magnesium Sulfate/ Dextrose 100 ml @ 100 mls/hr 1X ONCE IV Last administered on 04/15/17 13:08; Start 04/15/17 at 12:45; Stop 04/15/17 at 13:44; Status DC Magnesium Sulfate/ Dextrose 100 ml @ 100 mls/hr 1X ONCE IV Last administered on 04/15/17 16:29; Start 04/15/17 at 13:45; Stop 04/15/17 at 14:44; Status DC Enoxaparin Sodium (Lovenox 40mg Syringe) 40 mg Q24H SQ Last administered on 14:05; Start 04/15/17 at 15:00 Labetalol HCl 200 mg/Sodium Chloride 190 ml @ 10 mls/hr CONT PRN PRN IV PER PROTOCOL; Start 04/15/17 at 14:45; Stop 04/15/17 at 14:45; Status DC Simvastatin (Zocor) 10 mg QHS PO ; Start 04/15/17 at 21:00; Stop 04/16/17 at 08:55; Status DC Acetaminophen (Tylenol) 650 mg PRN Q6HRS PRN PO TEMP > 100.4F; Start 04/15/17 at 14:45 Acetaminophen (Acetaminophen Supp) 650 mg PRN Q4HRS PRN MN TEMP > 100.4F; Start 04/15/17 at 14:45 Aspirin (Dwayne Aspirin) 325 mg DAILYWBKFT PO ; Start 04/15/17 at 15:00; Stop 04/15/17 at 15:02; Status DC Labetalol HCl 400 mg/Miscellaneous 160 ml @ 48 mls/hr CONT PRN IV SEE I/O RECORD; Start 04/15/17 at 14:45 Amlodipine Besylate (Norvasc) 10 mg BID PO Last administered on 04/17/17 08: 56; Start 04/15/17 at 21:00 Throat Lozenges (Cepacol Sore Throat Lozenge) 1 nicolette PRN Q1HR PRN MM SORE THROAT ; Start 04/15/17 at 15:00 Bisacodyl (Dulcolax Supp) 10 mg PRN DAILY PRN RC CONSTIPATION; Start 04/15/17 at 15:00 Buspirone HCl (Buspar) 10 mg TID PO Last administered on 04/17/17 08:54; Start 04/15/17 at 21:00 Calcium Carbonate/ Glycine (Oscal) 500 mg PRN Q6HRS PRN PO INDIGESTION; Start 04/15/17 at 15:00 Carvedilol (Coreg) 12.5 mg BIDWMEALS PO Last administered on 04/17/17 08:00; Start 04/15/17 at 17:00 Clopidogrel Bisulfate (Plavix) 75 mg DAILY PO Last administered on 04/17/17 08:55; Start 04/16/17 at 09:00; Stop 04/17/17 at 12:37; Status DC Cyclobenzaprine HCl (Flexeril) 10 mg BID PO Last administered on 04/17/17 08: 55; Start 04/15/17 at 21:00 Diphenhydramine HCl (Benadryl) 25 mg PRN Q8HRS PRN PO IT; Start 04/15/17 at 15 :00 Fentanyl (Duragesic 12mcg/ Hr Patch) 1 patch Q72H TD Last administered on 04/15 16:45; Start 04/15/17 at 15:00 Ferrous Sulfate (Feosol) 325 mg TIDWMEALS PO Last administered on 04/17/17 12 :42; Start 04/15/17 at 17:00 Furosemide (Lasix) 40 mg BID92 PO Last administered on 04/17/17 08:55; Start 04/15/17 at 16:00 Insulin Detemir (Levemir) 15 units QHS SQ Last administered on 04/16/17 21:53 ; Start 04/15/17 at 21:00 Insulin Detemir (Levemir) 25 units DAILYWBKFT SQ Last administered on 08:00; Start 04/16/17 at 08:00 Letrozole (Femara) 2.5 mg DAILY PO Last administered on 04/17/17 08:54; Start 04/16/17 at 09:00 Levothyroxine Sodium (Synthroid) 25 mcg DAILY07 PO Last administered on 06:22; Start 04/16/17 at 09:00 Lorazepam (Ativan) 1 mg DAILY PO Last administered on 04/17/17 08:54; Start 04/16/17 at 09:00 Lorazepam (Ativan) 1 mg PRN Q6HRS PRN PO ANXIETY; Start 04/15/17 at 15:00 Mirtazapine (Remeron) 22.5 mg HS PO Last administered on 04/16/17 21:56; Start 04/15/17 at 21:00 Nitroglycerin (Nitro-Dur 0.6mg) 1 patch DAILY TD Last administered on 08:55; Start 04/16/17 at 09:00 Nystatin (Nystop) 1 judy PRN Q72HRS PRN TP REDNESS; Start 04/15/17 at 15:00 Oxycodone/ Acetaminophen (Percocet 5/325) 2 tab PRN Q4HRS PRN PO PAIN Last administered on 04/16/17 21:54; Start 04/15/17 at 15:00 Prochlorperazine (Compazine) 12.5 mg PRN Q4HRS PRN RC TULIO; Start 04/15/17 at 15:00 Senna/Docusate Sodium (Senna Plus) 1 tab DAILY PO Last administered on 08:55; Start 04/16/17 at 09:00 Insulin Aspart (NovoLOG) 16 units QIDACHS SQ Last administered on 04/17/17 12 :46; Start 04/15/17 at 16:30 Multivitamins (Thera M Plus) 1 tab DAILY PO Last administered on 04/17/17 08: 55; Start 04/16/17 at 09:00 Pantoprazole Sodium (Protonix) 40 mg DAILYAC PO Last administered on 07:30; Start 04/16/17 at 07:30 Artificial Tears (Artificial Tears) 2 drop QID OU Last administered on 12:46; Start 04/15/17 at 16:00 Venlafaxine HCl (Effexor Xr) 75 mg DAILY PO Last administered on 04/17/17 08: 54; Start 04/16/17 at 09:00 Al Hydroxide/Mg Hydroxide (Mylanta Plus Xs) 30 ml PRN Q3HRS PRN PO HEARTBURN / GAS; Start 04/15/17 at 16:00 Aspirin (Ecotrin) 81 mg DAILYWBKFT PO Last administered on 04/17/17 08:00; Start 04/16/17 at 08:00; Stop 04/17/17 at 14:19; Status DC Magnesium Oxide (Magnesium Oxide) 400 mg DAILY PO Last administered on 08:55; Start 04/16/17 at 09:00 Potassium Chloride (Klor-Con) 20 meq DAILYWBKFT PO Last administered on 08:00; Start 04/16/17 at 08:00 Hydralazine HCl (Apresoline Inj) 10 mg PRN Q4HRS PRN IVP ELEVATED BP, SEE COMMENTS; Start 04/15/17 at 16:45 Sodium Chloride 1,000 ml @ 30 mls/hr Q24H IV Last administered on 04/15/17 18:34; Start 04/15/17 at 17:15; Stop 04/16/17 at 12:25; Status DC Simvastatin (Zocor) 20 mg HS PO Last administered on 04/16/17 21:00; Start 04/16/17 at 21:00 Iohexol (Omnipaque 300 Mg/ml) 75 ml 1X ONCE IV ; Start 04/16/17 at 09:15; Stop 04/16/17 at 09:16; Status DC Info (Do NOT chart on this entry -- for MONITORING) 1 each PRN DAILY PRN MC SEE COMMENTS; Start 04/16/17 at 09:15; Stop 04/18/17 at 09:14 Levofloxacin (Levaquin) 250 mg DAILY PO Last administered on 04/17/17 12:42; Start 04/17/17 at 09:00; Stop 04/25/17 at 08:59 Lactobacillus Rhamnosus (Culturelle) 1 cap BID PO ; Start 04/17/17 at 21:00 Apixaban (Eliquis) 5 mg BID PO ; Start 04/17/17 at 21:00 Active Scripts Active FENTANYL 12mcg/hr (Fentanyl) 1 Each Patch.td72 1 Each TD Q72H Percocet 5-325 Mg Tablet (Oxycodone/Acetaminophen) 1 Each Tablet 2 Tab PO PRN Q4HRS PRN Levemir Flextouch (Insulin Detemir) 100 Unit/1 Ml Insuln.pen 15 Units SQ QHS 30 Days Levemir Flextouch (Insulin Detemir) 100 Unit/1 Ml Insuln.pen 25 Units SQ DAILYWBKFT 30 Days Carvedilol 12.5 Mg Tablet 12.5 Mg PO BIDWMEALS 30 Days Reported Magnesium Oxide 400 Mg Tablet 1 Tab PO DAILY Potassium Chloride 20 Meq Tablet.er 20 Meq PO DAILY Femara (Letrozole) 2.5 Mg Tablet 2.5 Mg PO DAILY Systane Ultra 0.4-0.3% Eye Drp (Propylene Glycol/Peg 400) 10 Ml Drops 2 Drop OP QID Senna Plus Tablet (Sennosides/Docusate Sodium) 1 Each Tablet 1 Each PO DAILY Nystatin 15 Gm Powder 1 Judy TP PRN Q72HRS PRN APPLY TO ABDOMEN PRN REDNESS Novolog (Insulin Aspart) 100 Unit/1 Ml Cartridge 16 Unit SQ ACHS Feosol (Ferrous Sulfate) 325 Mg Tablet 325 Mg PO TID Effexor Xr (Venlafaxine Hcl) 75 Mg Cap.er.24h 75 Mg PO DAILY Benadryl (Diphenhydramine Hcl) 25 Mg Capsule 25 Mg PO PRN Q8HRS PRN Ativan (Lorazepam) 1 Mg Tablet 1 Mg PO PRN Q6HRS PRN Furosemide 40 Mg Tablet 40 Mg PO BID Buspirone Hcl 10 Mg Tablet 10 Mg PO TID Remeron (Mirtazapine) 15 Mg Tablet 22.5 Mg PO HS [Mylanta] 30 Ml PO PRN Q3HRS PRN Multivitamins (Multivitamin) 1 Each Capsule 1 Each PO DAILY Compazine (Prochlorperazine Maleate) 25 Mg Supp.rect 10 Mg RC PRN Q4HRS PRN Cepacol Sore Throat Lozenge (Benzocaine/Menthol) 1 Each Lozenge 1 Each MM PRN Q1HR PRN Calcium Carbonate 500 Mg Tablet 500 Mg PO PRN Q6HRS PRN Bisacodyl 10 Mg Supp.rect 10 Mg RC PRN DAILY PRN Ativan (Lorazepam) 1 Mg Tablet 1 Mg PO DAILY EVERY E,ESTEFANÍA,SAT FOR ANXIETY ,GIVE 1/2 HR.BEFORE DIALYSIS Amlodipine Besylate 5 Mg Tablet 10 Mg PO BID Pantoprazole Sodium 20 Mg Tablet.dr 40 Mg PO DAILY NITRO-DUR 0.6mg/hr (Nitroglycerin) 1 Each Patch.td24 1 Each TD DAILY Levothyroxine Sodium 25 Mcg Tablet 25 Mcg PO DAILY Cyclobenzaprine Hcl 10 Mg Tablet 10 Mg PO BID Clopidogrel (Clopidogrel Bisulfate) 75 Mg Tablet 75 Mg PO DAILY Vitals/I & O Vital Sign - Last 24 Hours 04/16/17 04/16/17 04/16/17 04/16/17 16:09 19:35 20:15 21:54 Temp 98.3 98.3 Pulse 87 74 Resp 18 B/P (MAP) 144/71 142/68 (92) Pulse Ox 94 94 O2 Delivery Room Air Room Air Room Air 04/16/17 04/16/17 04/16/17 04/17/17 21:55 22:53 23:19 03:26 Temp 98.1 98.5 98.1 98.5 Pulse 74 77 52 Resp 18 18 B/P (MAP) 142/68 114/51 (72) 109/49 (69) Pulse Ox 94 96 94 O2 Delivery Room Air Room Air Room Air 04/17/17 04/17/17 04/17/17 04/17/17 07:00 08:00 08:00 08:56 Temp 97.8 97.8 Pulse 55 55 55 Resp 18 B/P (MAP) 113/47 (69) 113/47 113/47 Pulse Ox 97 O2 Delivery Room Air Room Air 04/17/17 11:00 Temp 97.6 97.6 Pulse 63 Resp 16 B/P (MAP) 127/57 (80) Pulse Ox 97 O2 Delivery Room Air Intake and Output 04/16/17 04/16/17 04/17/17 15:00 23:00 07:00 Intake Total 0 ml 640 ml Balance 0 ml 640 ml Images There is calcific plaquing of the aortic arch. The origins of the cervicocephalic arteries from the aortic arch are widely patent. The common carotid arteries in the neck are widely patent. There is moderate calcific plaquing at both carotid bifurcations. This is causing only approximately 30% diameter narrowing of the proximal internal carotid arteries bilaterally. The internal carotid arteries in the upper neck are widely patent. There is moderate calcific plaquing involving the cavernous segments of both distal internal carotid arteries. There is moderately severe focal narrowing of the left distal internal carotid artery in its cavernous segment, as seen on axial image 800 of series #4. No high-grade stenosis is seen in the distal right internal carotid artery. The anterior cerebral and middle cerebral arteries and their major branches are unremarkable. No aneurysm is evident. Both vertebral arteries in the neck are patent with only minimal calcific plaquing distally. The basilar and posterior cerebral arteries are unremarkable. Incidental note is made of small bilateral pleural effusions. IMPRESSION: 1. Moderate calcific plaquing at both carotid bifurcations with mild narrowing of the proximal internal carotid arteries bilaterally. 2. Moderate calcific plaquing involving the cavernous segments of both distal internal carotid arteries with moderately severe focal narrowing at this level on the left. 3. No other significant stenosis or occlusion is identified involving the major intracranial arteries. BENJAMÍN HEBERT MD Apr 17, 2017 15:00
--- NOTE | 2017-04-17 15:25 | DS ---
DATE OF DISCHARGE: 04/17/2017 ADMISSION DIAGNOSIS: Stroke. DISCHARGE DIAGNOSES: 1. Resolving stroke. 2. Previous strokes. 3. Left below-knee amputation, chronic small vessel disease. CONSULTS: Neurology. HOSPITAL COURSE: The patient is a pleasant middle-aged female who basically presented with stroke symptoms with left weakness and some dysphagia. She had had previous strokes as well. In fact, she lives in a mcc. She also has had a below-knee amputation. Basically, we admitted the patient, did a full evaluation including MRI, CAT scans, echocardiography. It should be noted that the strokes that she has now seemed to be multiple and possibly embolic, but she is not a candidate for very strong anticoagulation. She was on antiplatelet therapy. We are going to go ahead and add an aspirin to her Plavix. Clinically, she has done well. We will plan to discharge if okay with Dr. Chopra. DISPOSITION: Back to her [facility]. ACTIVITY: As tolerated. DIET: Low sodium. MEDICATIONS: Please see MRAD. TOTAL TIME ON DISCHARGE: 38 minutes. MARYJANE ANDREWS DO DR: RONAN/rohit JOB#: [id number] / [id number]
[2017-04-17] MEDS ORDERED: LACTOBACILLUS RHAMNOSUS GG 1 CAPSULE. PO SCH (21:00)
[2017-04-17] MEDS ORDERED: APIXABAN 5 MG TABLET. PO SCH (21:00)
== END 2017-04-17 15:27 | disposition home or self-care (01) | DRG 65 ==
LOC: ER 10:13 → 6 SOUTH 12:19
PROVIDERS: ADMIT Internal Medicine; ATTEND Internal Medicine
DX: I63.9 Cerebral infarction, unspecified (principal); I69.354 Hemiplegia and hemiparesis following cerebral infarction affecting left non-dominant side; E11.22 Type 2 diabetes mellitus with diabetic chronic kidney disease; E87.5 Hyperkalemia; E11.42 Type 2 diabetes mellitus with diabetic polyneuropathy; E11.51 Type 2 diabetes mellitus with diabetic peripheral angiopathy without gangrene; E11.69 Type 2 diabetes mellitus with other specified complication; E86.0 Dehydration; I48.2 Chronic atrial fibrillation; M86.9 Osteomyelitis, unspecified; E11.65 Type 2 diabetes mellitus with hyperglycemia; I13.0 Hypertensive heart and chronic kidney disease with heart failure and stage 1 through stage 4 chronic kidney disease, or unspecified chronic kidney disease; N39.0 Urinary tract infection, site not specified; I50.9 Heart failure, unspecified; R13.10 Dysphagia, unspecified; C50.919 Malignant neoplasm of unspecified site of unspecified female breast; E78.00 Pure hypercholesterolemia, unspecified; E78.5 Hyperlipidemia, unspecified; H54.7 Unspecified visual loss; I25.10 Atherosclerotic heart disease of native coronary artery without angina pectoris; I67.2 Cerebral atherosclerosis; K21.9 Gastro-esophageal reflux disease without esophagitis; F32.9 Major depressive disorder, single episode, unspecified; F41.9 Anxiety disorder, unspecified; M19.90 Unspecified osteoarthritis, unspecified site; J44.9 Chronic obstructive pulmonary disease, unspecified; N18.9 Chronic kidney disease, unspecified; Z79.01 Long term (current) use of anticoagulants; Z83.3 Family history of diabetes mellitus; Z85.3 Personal history of malignant neoplasm of breast; Z86.711 Personal history of pulmonary embolism; Z89.511 Acquired absence of right leg below knee; Z89.512 Acquired absence of left leg below knee; Z89.611 Acquired absence of right leg above knee; Z90.710 Acquired absence of both cervix and uterus; Z91.19 Patient's noncompliance with other medical treatment and regimen; Z95.5 Presence of coronary angioplasty implant and graft; Z79.4 Long term (current) use of insulin; Z88.5 Allergy status to narcotic agent; Z91.09 Other allergy status, other than to drugs and biological substances
CPT/HCPCS: 36415; 70450; 70496; 70498; 70551; 71010; 80053; 80061; 81001; 82962; 83735; 83880; 84484; 85025; 85610; 87086; 87186; 87641; 93005; 93306; 93880; 96365; J1650; J1815; J3475; J7030; J7040; 92610; 97110; 97530; 99285-25